=== PATIENT | male | born 1960 | race Caucasian/White ===

== ENCOUNTER 2018-10-20 06:51 | Observation (INO) ==
--- NOTE | 2018-10-20 07:33 | Emergency Department Note ---
ED Disposition Condition on Discharge: Serious - Critical Care Critical Care Time: No <Grover Hanley S - Last Filed: 10/20/18 07:48> Condition on Discharge: Good <AntonGrover - Last Filed: 10/27/18 01:55> Clinical Impression: Community acquired pneumonia Hypertensive cardiovascular disease Qualifiers: Heart failure presence: unspecified whether heart failure present Qualified Code(s): I11.9 - Hypertensive heart disease without heart failure Disposition: Admitted As Inpatient Attestation: On 10/20/18, the high probability of a clinically significant, sudden or life threatening deterioration of the following system(s) required my full and direct attention, intervention and personal management. The time I documented below is in addition to time spent performing reported procedures but includes the following listed in this critical care notation. Medical Decision Making - Medical Records Medical records reviewed: Yes: I reviewed the patient's medical records. - Joshua Inquiry Pt receiving controlled substance: No - Lab Data Lab results reviewed: Yes: I reviewed the patient's lab results. Result diagrams: 10/20/18 07:15 - Radiology Data #1 Image(s): Chest Image Reviewed: Yes I reviewed the patient's radiology image Preliminary Findings: Abnormal (cap) - ECG Data Tracing #1 Arrhythmias present: sinus tach Ischemic changes: ST elevation, non-specific ST-T wave changes ECG compared to prior tracings: there are no prior tracings available for comparison <Grover Hanley - Last Filed: 10/20/18 07:48> - Lab Data Result diagrams: 10/21/18 06:28 10/21/18 06:28 <AntonGrover - Last Filed: 10/27/18 01:55> Vital Signs: 10/20/18 07:05 10/20/18 07:40 10/20/18 07:55 Temperature 98 F Temperature Source Oral Pulse Rate Pulse Rate [Left Radial] 110 H 111 H Respiratory Rate 18 18 Blood Pressure Blood Pressure [Right Arm] 199/119 H 220/129 H 212/136 H Blood Pressure Mean [Right Arm] 145 159 161 Blood Pressure Source Blood Pressure Source [Right Arm] Automatic Cuff Automatic Cuff Automatic Cuff Blood Pressure Position Blood Pressure Position [Right Arm] Sitting Sitting Sitting 02 Sat by Pulse Oximetry 96 95 Oxygen Delivery Method Room Air Room Air 10/20/18 08:12 10/20/18 08:24 10/20/18 08:30 Temperature Temperature Source Pulse Rate Pulse Rate [Left Radial] 116 H 116 H Respiratory Rate Blood Pressure Blood Pressure [Right Arm] 192/124 H 197/112 H 201/103 H Blood Pressure Mean [Right Arm] 146 140 135 Blood Pressure Source Blood Pressure Source [Right Arm] Blood Pressure Position Blood Pressure Position [Right Arm] Sitting 02 Sat by Pulse Oximetry Oxygen Delivery Method 10/20/18 08:36 10/20/18 09:01 10/20/18 09:15 Temperature Temperature Source Pulse Rate Pulse Rate [Left Radial] 94 H 93 H Respiratory Rate Blood Pressure Blood Pressure [Right Arm] 186/108 H 174/102 H Blood Pressure Mean [Right Arm] 134 126 Blood Pressure Source Blood Pressure Source [Right Arm] Automatic Cuff Blood Pressure Position Blood Pressure Position [Right Arm] Sitting 02 Sat by Pulse Oximetry Oxygen Delivery Method Room Air 10/20/18 09:22 10/20/18 09:35 Temperature 98 F Temperature Source Oral Pulse Rate 80 Pulse Rate [Left Radial] 80 Respiratory Rate 18 Blood Pressure 140/80 Blood Pressure [Right Arm] 140/85 Blood Pressure Mean [Right Arm] 103 Blood Pressure Source Automatic Cuff Blood Pressure Source [Right Arm] Automatic Cuff Blood Pressure Position Sitting Blood Pressure Position [Right Arm] Sitting 02 Sat by Pulse Oximetry Oxygen Delivery Method Room Air - Lab Data Lab Results 10/20/18 07:15: WBC 12.7 H, RBC 4.51 L, Hgb 12.9 L, Hct 37.9 L, MCV 84.1, MCH 28.5, MCHC 33.9, RDW 14.3, Plt Count 322, MPV 7.8, Neut % (Auto) 84.7 H, Lymph % (Auto) 8.7 L, [place] % (Auto) 4.2, Eos % (Auto) 2.0, Baso % (Auto) 0.4, Neut # (Auto) 10.7 H, Lymph # (Auto) 1.1, [place] # (Auto) 0.5, Eos # (Auto) 0.3, Baso # (Auto) 0.1 10/20/18 07:15: B-Natriuretic Peptide 835 H 10/20/18 07:35: Lactate 0.8 10/20/18 08:26: Sodium 139, Potassium 2.8 L*, Chloride 101, Carbon Dioxide 25, Anion Gap 15.8 H, BUN 22 H, Creatinine 1.56 H, Estimated Creat Clear 51, Estimated GFR 46 L, Est GFR ( Amer) 56 L, Glucose 132 H, Calcium 8.9, Troponin I 0.10 H Orders (Tests/Meds): ED MEDICATIONS Discontinued Medications Generic Name Dose Route Start Last Admin Trade Name Rivka PRN Reason Stop Dose Admin Aspirin 324 mg 10/20/18 09:03 10/20/18 09:22 Aspirin 81mg Chewable Tablet PO 10/20/18 09:04 324 mg ONCE ONE Administration Bisoprolol Fumarate 10 mg 10/20/18 10:15 10/21/18 08:03 Zebeta 5mg Tablet PO 11/19/18 10:14 10 mg DAILY ARON Administration Furosemide 40 mg 10/20/18 17:06 10/20/18 18:09 Lasix 40mg Tablet PO 10/20/18 17:07 40 mg ONCE ONE Administration Hydralazine HCl 20 mg 10/20/18 07:51 10/20/18 08:00 Apresoline 20mg/Ml 1ml Vial IV 10/20/18 07:52 20 mg ONCE ONE Administration Hydrochlorothiazide 12.5 mg 10/20/18 09:00 10/20/18 08:09 Hctz 12.5mg Capsule PO 11/19/18 08:59 12.5 mg DAILY ARON Administration Hydrochlorothiazide 12.5 mg 10/20/18 09:00 10/21/18 07:59 Hctz 12.5mg Capsule PO 11/19/18 08:59 12.5 mg DAILY ARON Administration Levofloxacin/Dextrose 750 mg in 150 mls @ 100 mls/hr 10/20/18 08:15 10/20/18 08:23 Levofloxacin 750mg/150ml Premix IV 11/03/18 08:14 Not Given Q24H ARON Protocol Ceftriaxone Sodium 1 gm/ 50 mls @ 100 mls/hr 10/20/18 08:30 10/20/18 08:28 Sodium Chloride IV 11/03/18 08:29 100 mls/hr Q24H ARON Administration Protocol Azithromycin 500 mg/ Sodium 250 mls @ 250 mls/hr 10/20/18 08:30 10/20/18 09: 02 Chloride IV 11/03/18 08:29 250 mls/hr Q24H ARON Administration Protocol Azithromycin 500 mg/ Sodium 250 mls @ 250 mls/hr 10/21/18 09:00 10/21/18 08:56 Chloride IV 11/03/18 08:59 250 mls/hr Q24H ARON Administration Protocol Ceftriaxone Sodium 1 gm/ 50 mls @ 100 mls/hr 10/21/18 08:00 10/21/18 07:55 Sodium Chloride IV 11/03/18 07:59 100 mls/hr Q24H ARON Administration Protocol Irbesartan 150 mg 10/20/18 07:53 10/20/18 08:09 Avapro 150mg Tablet PO 10/20/18 07:54 150 mg ONCE ONE Administration Lorazepam 1 mg 10/20/18 08:15 10/20/18 08:22 Ativan 1mg Tablet PO 10/20/18 08:16 1 mg ONCE ONE Administration Metoprolol Tartrate 5 mg 10/20/18 08:30 10/20/18 08:30 Metoprolol Tartrate 5mg/5ml Vial IV 10/20/18 08:31 5 mg ONCE ONE Administration Ondansetron HCl 4 mg 10/20/18 08:55 Zofran 4mg/2ml Vial IV 11/19/18 08:54 Q8HP PRN Nausea Potassium Chloride 40 meq 10/20/18 09:01 10/20/18 09:22 Klor-Con 20meq Tablet PO 10/20/18 09:02 40 meq ONCE ONE Administration Potassium Chloride 20 meq 10/20/18 21:00 10/21/18 08:03 Klor-Con 20meq Tablet PO 11/19/18 20:59 20 meq QID ARON Administration Potassium Chloride 40 meq 10/21/18 08:21 10/21/18 08:56 Klor-Con 20meq Tablet PO 10/21/18 08:22 40 meq ONCE ONE Administration Sodium Chloride 10 ml 10/20/18 07:09 Saline Flush 10ml Syringe IV 11/19/18 07:08 NEEDED PRN Maintain IV Site Sodium Chloride 10 ml 10/20/18 08:55 Saline Flush 10ml Syringe IV 11/19/18 07:08 NEEDED PRN Maintain IV Site Sodium Chloride 3 ml 10/20/18 09:09 Sodium Chloride 3% 15ml Neb IH 11/19/18 09:08 ONCE PRN INDUCE SPUTUM COLLECTION ORDERS Category Date Time Status Consult to Cardiology [CONS] Routine Cons 10/20/18 08:55 Active Blood Culture Stat Micro 10/20/18 07:35 Ordered Resp/SOB HPI - General Mode of Arrival: Ambulatory Source of Information: Patient, Medical Record Limitations: No Limitations Description of Symptoms (Recalled from ER Triage Doc. by RN): to ed per pvt car with c/o cough, SOB, fatique, "coughing up blood" x 2 days. denies any fever, chills, chest pain, nausea or vomiting. cpta none - History of Present Illness MD Complaint: shortness of breath, cough Onset (ago): day(s) Severity: moderate Exacerbating factors: lying flat Associated symptoms: denies other symptoms Treatment prior to arrival: none - Related Data Home oxygen amount: none <Grover Hanley - Last Filed: 10/20/18 07:48> <Grover aWlton - Last Filed: 10/27/18 01:55> - General Chief Complaint: Shortness of Breath/Dyspnea Stated Complaint: fatiqued,spitting up blood,chest congested,soa Time Seen by Provider: 10/20/18 07:10 - History of Present Illness progressive sob over the last few days with no tob hx and no known card disease - worse with lying flat (Grover Hanley) - Related Data Home Medications Medication Instructions Recorded Confirmed No Known Home Medications 10/20/18 10/20/18 Previous Rx's Medication Instructions Recorded RX: Azithromycin [Z-Foster 250mg Tab] 250 mg PO UD DOSE PK #6 tab 10/21/18 RX: Bisoprolol Fumarate [Zebeta 10 mg PO DAILY #30 tab 10/21/18 5mg tablet] RX: Furosemide [Furosemide 40MG 40 mg PO DAILY #30 tab 10/21/18 tAB] RX: Losartan Potassium [Cozaar] 100 mg PO DAILY #30 tab 10/21/18 RX: Potassium Chloride [Klor-con 20 meq PO BID #60 tab 10/21/18 20 mEq tablet] Allergies Allergy/AdvReac Type Severity Reaction Status Date / Time No Known Allergies Allergy Verified 10/20/18 07:08 [facility] History - Hepatitis A Screen Drug use history?: No High risk sexual behaviors?: No History of sexually transmitted infection?: No Currently employed?: No Childcare worker?: No Do you have indoor plumbing?: Yes Do you have electricity?: Yes I have reviewed the patient's past medical history: Yes - Social History Alcohol Intake: never - Psychiatric History Expresses thoughts of harming self/others: None Suicide Plan Description: No Plan <DayanGrover - Last Filed: 10/20/18 07:48> - Hepatitis A Screen Attestation statement:: This patient has been screened for Hepatitis A risk factors. ROS Obtained: Yes All systems reviewed & no additional complaints - Constitutional Constitutional: Denies fever(s) - Eyes Eyes: Denies change in vision - ENT Ears, Nose, Mouth, and Throat: Denies sore throat - Cardiovascular Cardiovascular: Reports chest pain, Reports dyspnea - Respiratory Respiratory: Yes change in phlegm color, Yes cough, No wheezing - Gastrointestinal Gastrointestingal: Denies: abdominal pain - Genitourinary Male Genitourinary: Denies hematuria - Musculoskeletal Musculoskeletal: Denies joint pain, Denies joint swelling - Integumentary/Breasts Skin/Breast: Denies rash - Neurologic Neurologic: Denies seizure-like activity <Grover Hanley - Last Filed: 10/20/18 07:48> Physical Exam - General General appearance: alert, in no apparent distress - Head Head exam: atraumatic - Eye Eye exam: Present: PERRL, EOMI. Absent: scleral icterus - ENT ENT exam: Present: mucous membranes dry - Neck Neck exam: Present: trachea midline - Respiratory Respiratory exam: Absent: respiratory distress - Cardiovascular Cardiovascular exam: Present: regular rate, systolic murmur, +S4 - Abdominal Exam Abdominal exam: Present: soft - Extremities Exam Extremities exam: Absent: calf tenderness - Neurological Exam Neurological exam: Present: alert, oriented X3, CN II-XII intact - Psychiatric Psychiatric exam: Present: normal affect - Skin Skin exam: Absent: rash <Grover Hanley - Last Filed: 10/20/18 07:48>
[2018-10-20 07:39] LABS: Basophils # 0.1 K/mm3 (0-0.2); Basophils % 0.4 % (0.1-2.0); Eosinophils # 0.3 K/mm3 (0.0-0.4); Hematocrit 37.9 % (42.0-52.0); Hemoglobin 12.9 g/dL (14.1-18.0); Lymphocytes # 1.1 K/mm3 (0.7-4.5); Lymphocytes % 8.7 % (10-50); Mean Corpuscular HGB Conc 33.9 g/dL (31.8-35.4); Mean Corpuscular Hemoglobin 28.5 pg (27.0-31.2); Mean Corpuscular Volume 84.1 fl (80-94); Mean Platelet Volume 7.8 fl (7.4-10.4); Monocytes # 0.5 K/mm3 (0.1-1.0); Monocytes % 4.2 % (1.7-9.3); Neutrophils # 10.7 K/mm3 (1.8-7.8); Neutrophils % 84.7 % (37.0-80.0); Platelet Count 322 K/mm3 (142-424); Red Blood Count 4.51 M/mm3 (4.60-6.20); Red Cell Distribution Width 14.3 % (11.5-17.5); White Blood Count 12.7 K/mm3 (4.8-10.8)
[2018-10-20 08:59] LABS: Anion Gap 15.8 mEq/L (5-15); Calcium 8.9 mg/dL (8.5-10.1)
[2018-10-20 09:00] LABS: Potassium 2.8 mmoL/L (3.5-5.1)
--- NOTE | 2018-10-20 10:01 | Pharmacy Consult Notes ---
[facility] Pharmacy VTE Monitoring - Patient Demographics Admission date: 10/20/18 Report Date: 10/20/18 Time: 10:01 Allergies/Adverse Reactions: Patient Allergies No Known Allergies Allergy (Verified 10/20/18 07:08) Height: 1.7 m Weight: 68.039 kg Patient Problems: Current Active Problems Community acquired pneumonia (Acute) Hypertensive cardiovascular disease (Acute) - VTE Risk Labs: VTE Related Lab Results Hgb 12.9 g/dL (14.1-18.0) L 10/20/18 07:15 Hct 37.9 % (42.0-52.0) L 10/20/18 07:15 Plt Count 322 K/mm3 (142-424) 10/20/18 07:15 BUN 22 mg/dL (7-18) H 10/20/18 08:26 Creatinine 1.56 mg/dL (0.70-1.30) H 10/20/18 08:26 Estimated Creat Clear 51 mL/min (50-200) 10/20/18 08:26 - Prophylaxis VTE Prophylaxis Ordered?: Yes Types of VTE Prophylaxis: TEDS Knee High Location of Applied Device: Bilateral Lower Extremeties - VTE Diagnosis Confirmed Treatment or plan recommended: Continue Current Treatment
--- NOTE | 2018-10-20 10:13 | Consult Report ---
History of Present Illness Consult date: 10/20/18 Requesting physician: Cristopher Redmond Consult reason: chest pain Chief complaint: Chest pain, HTN Additional Medical History:: 1. Hard of hearing, uses hearing aids 2. Question level of comprehension. 3. Occasional alcohol use 4. Family history of coronary artery disease in his father in his late 50s History of present illness: 58-year-old white male with no significant medical history presented to the emergency department for evaluation of chest discomfort. Patient relates episodes of chest discomfort that are worse with activity recently along with episodes of shortness of breath that wake him from sleep. Patient denies any lower extremity edema but does admit to some dietary indiscretion with increased sodium intake around the holidays. Patient denies hypertension, hyperlipidemia, diabetes or tobacco use. 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 Patient is able to understand questions and respond appropriately. EKGs in the ER showed no evidence of hypertensive heart disease without acute ST segment elevation. Patient did have mildly elevated troponin initially in the ER when blood pressure was >200/100 mmHg. Blood pressure has responded well to antihypertensive therapy including beta-flako with near resolution of symptoms. Blood pressure currently 140s over 70s with heart rate in the 80s. Patient's [id number] does relate that the patient was coughing up some pinkish sputum recently. The patient does relate taking nonsteroidals recently. [facility] History - *Social History Alcohol Intake: never - Psychiatric History Expresses thoughts of harming self/others: None Suicide Plan Description: No Plan Meds Home Medications Medication Instructions Recorded Confirmed Type No Known Home Medications 10/20/18 10/20/18 History Allergies Allergy/AdvReac Type Severity Reaction Status Date / Time No Known Allergies Allergy Verified 10/20/18 07:08 Review of Systems - *Cardiovascular Reports chest pain, Reports shortness of breath, Reports shortness of breath with activity, Denies generalized swelling, Denies leg swelling - *Respiratory Reports cough, Reports shortness of breath - *Gastrointestinal Denies abdominal pain - *Genitourinary Denies blood in urine - *Musculoskeletal Reports joint pain - *Neurologic Denies seizure-like activity Exam Vital signs and Labs for Last 24 Hours: Temp Pulse Resp BP Pulse Ox 98 F 80 18 140/80 95 10/20/18 09:35 10/20/18 09:35 10/20/18 09:35 10/20/18 09:35 10/20/18 07:40 Laboratory Results - last 24 hr 10/20/18 07:15: WBC 12.7 H, RBC 4.51 L, Hgb 12.9 L, Hct 37.9 L, MCV 84.1, MCH 28.5, MCHC 33.9, RDW 14.3, Plt Count 322, MPV 7.8, Neut % (Auto) 84.7 H, Lymph % (Auto) 8.7 L, [place] % (Auto) 4.2, Eos % (Auto) 2.0, Baso % (Auto) 0.4, Neut # (Auto) 10.7 H, Lymph # (Auto) 1.1, [place] # (Auto) 0.5, Eos # (Auto) 0.3, Baso # (Auto) 0.1 10/20/18 07:15: B-Natriuretic Peptide 835 H 10/20/18 07:35: Lactate 0.8 10/20/18 08:26: Sodium 139, Potassium 2.8 L*, Chloride 101, Carbon Dioxide 25, Anion Gap 15.8 H, BUN 22 H, Creatinine 1.56 H, Estimated Creat Clear 51, Estimated GFR 46 L, Est GFR ( Amer) 56 L, Glucose 132 H, Calcium 8.9, Troponin I 0.10 H I & O for Last 24 hours: Intake & Output 10/17/18 10/18/18 10/19/18 10/20/18 11:59 11:59 11:59 11:59 Weight 150 lb - *Routine Neck Exam Present: supple. Absent: JVD, carotid bruit - *Routine Respiratory Exam Present: CTA bilaterally. Absent: accessory muscle use, rales, rhonchi, wheezes - *Routine Cardiovascular Exam Present: RRR. Absent: murmur, gallop, rubs - *Routine Abdominal Exam Present: soft. Absent: tenderness, distended, guarding - *Routine Extremities Exam Absent: edema, calf tenderness - *Routine Neurological Exam Present: alert, oriented X3, moving all extremities Assessment and Plan (1) (HFpEF) heart failure with preserved ejection fraction Current visit: Yes Status: Acute Category: Medical Code(s): I50.30 - Unspecified diastolic (congestive) heart failure (2) Hypertensive cardiovascular disease Current visit: Yes Status: Acute Qualifiers: Heart failure presence: unspecified whether heart failure present Qualified Code(s): I11.9 - Hypertensive heart disease without heart failure Category: Medical Code(s): I11.9 - Hypertensive heart disease without heart failure (3) CHF (congestive heart failure) Current visit: Yes Status: Acute Category: Medical Code(s): I50.9 - Heart failure, unspecified (4) Community acquired pneumonia Current visit: Yes Status: Acute Qualifiers: Laterality: right Lung location: lower lobe of lung Qualified Code(s): J18.1 - Lobar pneumonia, unspecified organism Category: Medical Code(s): J18.9 - Pneumonia, unspecified organism - Assessment and plan all Dx Assessment and Plan for all problems:: 1. Echocardiogram has been performed with official reading pending at this time but with preliminary showing preserved ejection fraction. 2. Mild congestive heart failure by chest x-ray with elevated BNP consistent with heart failure with preserved ejection fraction. Low-dose diuretic has been ordered. 3. Patient to be started on bisoprolol along with the Avapro that has already been started. He has had a nice response thus far to antihypertensives. 4. Abnormal EKG and elevated troponin felt secondary to hypertensive heart disease/response. Once blood pressure control has been sustained, will obtain a Lexiscan Myoview to assess for coronary artery disease. 5. Discussed with Dr. Javier.
--- NOTE | 2018-10-20 17:07 | History & Physical Report ---
*Admission Date: 10/20/18 *Chief complaint: Shortness of breath *History of present illness: 58-year-old white male with no significant medical history presented to the emergency department for evaluation of chest discomfort. Patient relates episodes of chest discomfort that are worse with activity recently along with episodes of shortness of breath that wake him from sleep. Patient denies any lower extremity edema but does admit to some dietary indiscretion with increased sodium intake around the holidays. Patient denies hypertension, hyperlipidemia, diabetes or tobacco use. Patient denies fevers, chills, other URI symptoms. 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 EKGs in the ER showed no evidence of hypertensive heart disease without acute ST segment elevation. Patient did have mildly elevated troponin initially in the ER when blood pressure was >200/100 mmHg. Blood pressure has responded well to antihypertensive therapy including beta-flako with near resolution of symptoms. Blood pressure currently 140s over 70s with heart rate in the 80s. Patient's [id number] does relate that the patient was coughing up some pinkish sputum recently. The patient does relate taking nonsteroidals recently. [facility] History I have reviewed the patient's past medical history: Yes Medical History: Reports:: Hypertension Denies:: Cancer, Diabetes Mellitus Type 1, Diabetes Mellitus Type 2, Internal Pacemaker, MRSA Other Medical History: Reports: Sinus Problems Other Surgeries: No: Pacemaker Amputation: No - *Social History Educational Level: Completed College Smoking Status: Never smoker Smoking End Date: 1982 Alcohol Intake: never Alcohol Intake Frequency:: 0-2 drinks per day Occupational Status: disabled Housing: house Household Members: none - Psychiatric History Expresses thoughts of harming self/others: None Suicide Plan Description: No Plan Review of Systems - Review of Systems Review of systems:: pertinent systems reviewed and negative unless documented below - Constitutional Reports fatigue, Denies body ache(s), Denies chills - ENT Reports abnormal hearing - *Cardiovascular Reports chest pain, Reports shortness of breath - *Respiratory Reports change in phlegm color, Reports shortness of breath, Reports shortness of breath with activity - *Gastrointestinal Denies abdominal pain, Denies bloating - *Neurologic Denies seizure-like activity Meds Home Medications Medication Instructions Recorded Confirmed Type No Known Home Medications 10/20/18 10/20/18 History Allergies Allergy/AdvReac Type Severity Reaction Status Date / Time No Known Allergies Allergy Verified 10/20/18 07:08 Exam Vital signs and Labs for Last 24 Hours: Temp Pulse Resp BP Pulse Ox 98.0 F 78 18 138/78 96 10/20/18 16:00 10/20/18 16:00 10/20/18 16:00 10/20/18 16:00 10/20/18 16:00 Laboratory Results - last 24 hr 10/20/18 07:15: WBC 12.7 H, RBC 4.51 L, Hgb 12.9 L, Hct 37.9 L, MCV 84.1, MCH 28.5, MCHC 33.9, RDW 14.3, Plt Count 322, MPV 7.8, Neut % (Auto) 84.7 H, Lymph % (Auto) 8.7 L, [place] % (Auto) 4.2, Eos % (Auto) 2.0, Baso % (Auto) 0.4, Neut # (Auto) 10.7 H, Lymph # (Auto) 1.1, [place] # (Auto) 0.5, Eos # (Auto) 0.3, Baso # (Auto) 0.1 10/20/18 07:15: B-Natriuretic Peptide 835 H 10/20/18 07:35: Lactate 0.8 10/20/18 08:26: Sodium 139, Potassium 2.8 L*, Chloride 101, Carbon Dioxide 25, Anion Gap 15.8 H, BUN 22 H, Creatinine 1.56 H, Estimated Creat Clear 51, Estimated GFR 46 L, Est GFR ( Amer) 56 L, Glucose 132 H, Calcium 8.9, Troponin I 0.10 H 10/20/18 12:00: Troponin I 0.08 H 10/20/18 14:58: Troponin I 0.07 H I & O for Last 24 hours: Intake & Output 10/18/18 10/19/18 10/20/18 10/21/18 11:59 11:59 11:59 11:59 Intake Total 360 / 360 Balance 360 / 360 Weight 156 lb 1.996 oz - Constitutional no acute distress - *Routine HEENT Exam Head: Present: normocephalic Eye: Present: PERRL ENT: Present: mucous membranes moist - *Routine Neck Exam Absent: JVD, carotid bruit - *Routine Respiratory Exam Present: crackles (Right base greater than left base) - *Routine Cardiovascular Exam Present: RRR, Normal S1, Normal S2 - *Routine Abdominal Exam Present: soft, normoactive bowel sounds - *Routine Extremities Exam Absent: cyanosis, clubbing, edema H&P: Result - Impressions Preliminary echocardiogram report showed preserved ejection fraction Assessment and Plan (1) (HFpEF) heart failure with preserved ejection fraction Current visit: Yes Status: Acute Category: Medical Code(s): I50.30 - Unspecified diastolic (congestive) heart failure (2) Hypertensive cardiovascular disease Current visit: Yes Status: Acute Qualifiers: Heart failure presence: unspecified whether heart failure present Qualified Code(s): I11.9 - Hypertensive heart disease without heart failure Category: Medical Code(s): I11.9 - Hypertensive heart disease without heart failure (3) CHF (congestive heart failure) Current visit: Yes Status: Acute Qualifiers: Heart failure chronicity: acute Category: Medical Code(s): I50.9 - Heart failure, unspecified (4) Community acquired pneumonia Current visit: Yes Status: Suspected Qualifiers: Laterality: right Lung location: lower lobe of lung Qualified Code(s): J18.1 - Lobar pneumonia, unspecified organism Category: Medical Code(s): J18.9 - Pneumonia, unspecified organism (5) Hypokalemia Current visit: Yes Status: Acute Category: Medical Code(s): E87.6 - Hypokalemia - Assessment and plan all Dx Assessment and Plan for all problems:: Patient's blood pressure has responded nicely to initiation of bisoprolol, irbesartan, and a dose of hydrochlorothiazide as well as hydralazine in the emergency department. Continue to monitor overnight. While patient's chest x- ray was interpreted as pneumonia and he lacks infectious symptoms and I suspect the changes on his chest x-ray may be due to his heart failure. Repeat labs in a.m. Patient will need his potassium replaced as well. I am going to give him a dose of oral Lasix this evening.
--- NOTE | 2018-10-21 06:47 | Progress Note ---
Internal Medicine - PN: Subj *Date: 10/21/18 *Time: 06:45 Interval history: Patient has no complaints this morning. He slept well. He states he still notes a little bit of abnormal sensation when taking a deep breath. While he was given additional Lasix yesterday evening and he did urinate more he does not really feel like it had any significant impact on his dyspnea Exam Vital signs and Labs for Last 24 Hours: Temp Pulse Resp BP Pulse Ox 98.1 F 83 15 144/83 H 95 10/21/18 04:00 10/21/18 04:00 10/21/18 04:00 10/21/18 04:00 10/21/18 04:00 Laboratory Results - last 24 hr 10/20/18 07:15: WBC 12.7 H, RBC 4.51 L, Hgb 12.9 L, Hct 37.9 L, MCV 84.1, MCH 28.5, MCHC 33.9, RDW 14.3, Plt Count 322, MPV 7.8, Neut % (Auto) 84.7 H, Lymph % (Auto) 8.7 L, [place] % (Auto) 4.2, Eos % (Auto) 2.0, Baso % (Auto) 0.4, Neut # (Auto) 10.7 H, Lymph # (Auto) 1.1, [place] # (Auto) 0.5, Eos # (Auto) 0.3, Baso # (Auto) 0.1 10/20/18 07:15: B-Natriuretic Peptide 835 H 10/20/18 07:35: Lactate 0.8 10/20/18 08:26: Sodium 139, Potassium 2.8 L*, Chloride 101, Carbon Dioxide 25, Anion Gap 15.8 H, BUN 22 H, Creatinine 1.56 H, Estimated Creat Clear 51, Estimated GFR 46 L, Est GFR ( Amer) 56 L, Glucose 132 H, Calcium 8.9, Troponin I 0.10 H 10/20/18 12:00: Troponin I 0.08 H 10/20/18 14:58: Troponin I 0.07 H I & O for Last 24 hours: Intake & Output 10/18/18 10/19/18 10/20/18 10/21/18 11:59 11:59 11:59 11:59 Intake Total 720 / 720 Balance 720 / 720 Weight 156 lb 1.996 oz 154 lb 5.212 oz Narrative: Patient is awake and alert and in no distress. Heart has a regular rate and rhythm. Lungs have bibasilar rales that persist Assessment and Plan (1) (HFpEF) heart failure with preserved ejection fraction Current visit: Yes Status: Acute Category: Medical Code(s): I50.30 - Unspe cified diastolic (congestive) heart failure (2) Hypertensive cardiovascular disease Current visit: Yes Status: Acute Qualifiers: Heart failure presence: unspecified whether heart failure present Qualified Code(s): I11.9 - Hypertensive heart disease without heart failure Category: Medical Code(s): I11.9 - Hypertensive heart disease without heart failure (3) CHF (congestive heart failure) Current visit: Yes Status: Acute Qualifiers: Heart failure chronicity: acute Category: Medical Code(s): I50.9 - Heart failure, unspecified (4) Community acquired pneumonia Current visit: Yes Status: Suspected Qualifiers: Laterality: right Lung location: lower lobe of lung Qualified Code(s): J18.1 - Lobar pneumonia, unspecified organism Category: Medical Code(s): J18.9 - Pneumonia, unspecified organism (5) Hypokalemia Current visit: Yes Status: Acute Category: Medical Code(s): E87.6 - Hypokalemia - Assessment and plan all Dx Assessment and Plan for all problems:: 1. Await cardiology recommendations this morning 2. Continue antibiotics. From a pneumonia standpoint patient can be easily transition to oral antibiotics 3. Continue antihypertensives. Anticipate discharge later today or tomorrow
--- NOTE | 2018-10-21 06:52 | Discharge Summary ---
General - General Admission date:: 10/20/18 HPI HPI: 58-year-old white male with no significant medical history presented to the emergency department for evaluation of chest discomfort. Patient relates episodes of chest discomfort that are worse with activity recently along with episodes of shortness of breath that wake him from sleep. Patient denies any lower extremity edema but does admit to some dietary indiscretion with increased sodium intake around the holidays. Patient denies hypertension, hyperlipidemia, diabetes or tobacco use. Patient denies fevers, chills, other URI symptoms. 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 EKGs in the ER showed no evidence of hypertensive heart disease without acute ST segment elevation. Patient did have mildly elevated troponin initially in the ER when blood pressure was >200/100 mmHg. Blood pressure has responded well to antihypertensive therapy including beta-flako with near resolution of symptoms. Blood pressure currently 140s over 70s with heart rate in the 80s. Patient's [id number] does relate that the patient was coughing up some pinkish sputum recently. The patient does relate taking nonsteroidals recently. Hospital Course Hospital Course: Patient was admitted and blood pressure came down nicely after being administered antihypertensives. Echocardiogram was performed and showed a preserved ejection fraction. Patient did diurese with use of diuretic. Chest x-ray was interpreted as also having bilateral infiltrates. Initially I believe these were due to the congestive heart failure but after diuresis his lung exam remained abnormal with bibasilar rales. Patient had received Rocephin and azithromycin while hospitalized and will continue a course of azithromycin at discharge. On the morning of the patient was not requiring supplemental oxygen and his blood pressures were acceptable. Patient was discharged home. Patient will follow-up with me in 1 week for repeat of his blood pressure and repeat lung exam and follow-up of pneumonia. Stress test will be arranged at that time. Objective Vital signs: Temp Pulse Resp BP Pulse Ox 98.1 F 83 15 144/83 H 95 10/21/18 04:00 10/21/18 04:00 10/21/18 04:00 10/21/18 04:00 10/21/18 04:00 Results Labs on day of discharge: Labs from last 24 hours 10/20/18 10/20/18 10/20/18 14:58 12:00 08:26 WBC RBC Hgb Hct MCV MCH MCHC RDW Plt Count MPV Neut % (Auto) Lymph % (Auto) [place] % (Auto) Eos % (Auto) Baso % (Auto) Neut # (Auto) Lymph # (Auto) [place] # (Auto) Eos # (Auto) Baso # (Auto) Sodium 139 Potassium 2.8 L* Chloride 101 Carbon Dioxide 25 Anion Gap 15.8 H BUN 22 H Creatinine 1.56 H Estimated Creat Clear 51 Estimated GFR 46 L Est GFR ( Amer) 56 L Glucose 132 H Lactate Calcium 8.9 Troponin I 0.07 H 0.08 H 0.10 H B-Natriuretic Peptide 10/20/18 10/20/18 10/20/18 07:35 07:15 07:15 WBC 12.7 H RBC 4.51 L Hgb 12.9 L Hct 37.9 L MCV 84.1 MCH 28.5 MCHC 33.9 RDW 14.3 Plt Count 322 MPV 7.8 Neut % (Auto) 84.7 H Lymph % (Auto) 8.7 L [place] % (Auto) 4.2 Eos % (Auto) 2.0 Baso % (Auto) 0.4 Neut # (Auto) 10.7 H Lymph # (Auto) 1.1 [place] # (Auto) 0.5 Eos # (Auto) 0.3 Baso # (Auto) 0.1 Sodium Potassium Chloride Carbon Dioxide Anion Gap BUN Creatinine Estimated Creat Clear Estimated GFR Est GFR ( Amer) Glucose Lactate 0.8 Calcium Troponin I B-Natriuretic Peptide 835 H DS: Diagnosis - Discharge Diagnosis (1) (HFpEF) heart failure with preserved ejection fraction Status: Acute (2) Hypertensive cardiovascular disease Status: Acute (3) CHF (congestive heart failure) Status: Acute (4) Community acquired pneumonia Status: Suspected (5) Hypokalemia Status: Acute Discharge Plan - Patient Discharge Instructions ACTIVITY: Limited activity DIET: continue same diet - Follow up Plan Follow up with: Deshawn Javier MD [Staff Physician] - Cristopher Redmond MD [Staff Physician] - 10/28/18 2:00 pm Disposition: Home, Self-Alf Medications: Home Medications Medication Instructions Recorded Confirmed Type No Known Home Medications 10/20/18 10/20/18 History Azithromycin [Z-Foster 250mg Tab] 250 mg PO UD DOSE PK #6 tab 10/21/18 Rx Bisoprolol Fumarate [Zebeta 5mg 10 mg PO DAILY #30 tab 10/21/18 Rx tablet] Furosemide [Furosemide 40MG tAB] 40 mg PO DAILY #30 tab 10/21/18 Rx Losartan Potassium [Cozaar] 100 mg PO DAILY #30 tab 10/21/18 Rx Potassium Chloride [Klor-con 20 20 meq PO BID #60 tab 10/21/18 Rx mEq tablet] Prescriptions/Medication Reconciliation: New Bisoprolol Fumarate [Zebeta 5mg tablet] 10 mg PO DAILY #30 tab Furosemide [Furosemide 40MG tAB] 40 mg PO DAILY #30 tab Losartan Potassium [Cozaar] 100 mg PO DAILY #30 tab Potassium Chloride [Klor-con 20 mEq tablet] 20 meq PO BID #60 tab Azithromycin [Z-Foster 250mg Tab] 250 mg PO UD DOSE PK #6 tab No Action No Known Home Medications
[2018-10-21 07:00] LABS: Anion Gap 10.2 mEq/L (5-15); Calcium 8.2 mg/dL (8.5-10.1); Potassium 3.2 mmoL/L (3.5-5.1)
[2018-10-21 07:19] LABS: Basophils % 0.4 % (0.1-2.0); Eosinophils # 0.4 K/mm3 (0.0-0.4); Eosinophils % 3.6 % (0.1-12.0); Hematocrit 36.3 % (42.0-52.0); Hemoglobin 11.9 g/dL (14.1-18.0); Lymphocytes # 1.8 K/mm3 (0.7-4.5); Lymphocytes % 18.9 % (10-50); Mean Corpuscular HGB Conc 32.8 g/dL (31.8-35.4); Mean Corpuscular Hemoglobin 27.8 pg (27.0-31.2); Mean Corpuscular Volume 84.8 fl (80-94); Mean Platelet Volume 7.8 fl (7.4-10.4); Monocytes # 0.5 K/mm3 (0.1-1.0); Monocytes % 5.3 % (1.7-9.3); Neutrophils # 6.9 K/mm3 (1.8-7.8); Neutrophils % 71.7 % (37.0-80.0); Platelet Count 315 K/mm3 (142-424); Red Blood Count 4.28 M/mm3 (4.60-6.20); Red Cell Distribution Width 14.5 % (11.5-17.5); White Blood Count 9.6 K/mm3 (4.8-10.8)
--- NOTE | 2018-10-21 08:24 | Progress Note ---
Subjective Date: 10/21/18 Time: 08:21 Principal diagnosis: SOA Interval history: 58-year-old white male in bed in no acute distress. Shortness of breath has improved. Telemetry shows no arrhythmias. Troponin is trending down. Mild bump in creatinine and BUN with additional Lasix and institution of KENNETH inhibitor yesterday with hydrochlorothiazide. Potassium improved at 3.2. Exam Vital signs and Labs for Last 24 Hours: Temp Pulse Resp BP Pulse Ox 98.1 F 83 15 144/83 H 95 10/21/18 04:00 10/21/18 04:00 10/21/18 04:00 10/21/18 04:00 10/21/18 04:00 Laboratory Results - last 24 hr 10/20/18 07:15: B-Natriuretic Peptide 835 H 10/20/18 08:26: Sodium 139, Potassium 2.8 L*, Chloride 101, Carbon Dioxide 25, Anion Gap 15.8 H, BUN 22 H, Creatinine 1.56 H, Estimated Creat Clear 51, Estimated GFR 46 L, Est GFR ( Amer) 56 L, Glucose 132 H, Calcium 8.9, Troponin I 0.10 H 10/20/18 12:00: Troponin I 0.08 H 10/20/18 14:58: Troponin I 0.07 H 10/21/18 06:28: WBC 9.6, RBC 4.28 L, Hgb 11.9 L, Hct 36.3 L, MCV 84.8, MCH 27.8, MCHC 32.8, RDW 14.5, Plt Count 315, MPV 7.8, Neut % (Auto) 71.7, Lymph % (Auto) 18.9, [place] % (Auto) 5.3, Eos % (Auto) 3.6, Baso % (Auto) 0.4, Neut # (Auto) 6.9, Lymph # (Auto) 1.8, [place] # (Auto) 0.5, Eos # (Auto) 0.4, Baso # (Auto) 0.0 10/21/18 06:28: Sodium 142, Potassium 3.2 L, Chloride 104, Carbon Dioxide 31 D, Anion Gap 10.2, BUN 30 H D, Creatinine 1.99 H D, Estimated Creat Clear 41, Estimated GFR 35 L, Est GFR ( Amer) 42 L D, Glucose 149 H, Calcium 8.2 L I & O for Last 24 hours: Intake & Output 10/18/18 10/19/18 10/20/18 10/21/18 11:59 11:59 11:59 11:59 Intake Total 720 / 720 Balance 720 / 720 Weight 156 lb 1.996 oz 154 lb 5.212 oz - *Routine Respiratory Exam Present: CTA bilaterally. Absent: accessory muscle use, rales, rhonchi, wheezes - *Routine Cardiovascular Exam Present: RRR. Absent: murmur, gallop, rubs Progress Note: A&P (1) (HFpEF) heart failure with preserved ejection fraction Status: Acute Current Visit: Yes (2) Hypertensive cardiovascular disease Status: Acute Current Visit: Yes (3) CHF (congestive heart failure) Status: Acute Current Visit: Yes (4) Community acquired pneumonia Status: Suspected Current Visit: Yes (5) Hypokalemia Status: Acute Current Visit: Yes Assessment and Plan for All Diagnoses:: 1. We will give additional 40 mEq of potassium today. 2. Patient may be discharged home on current medications with follow-up in 2-3 weeks. Patient is to see Dr. Redmond next week who will order exercise Myoview (this could be changed to Lexiscan Myoview if patient unable to walk long enough to achieve target heart rate).
== END 2018-10-21 10:50 | disposition home or self-care (01) ==
LOC: 2ND 06:51 → ER 06:51 → 2ND 09:36
PROVIDERS: ADMIT Family Medicine; ATTEND Family Medicine
CPT/HCPCS: 36415; 71020; 71046; 80048; 83605; 83880; 84484; 85025; 87040; 87077; 87186; 93005; 93306; 96365; 96375; 99285; G0378; J0456

== ENCOUNTER → 2018-11-07 06:18 | Outpatient (CLI) | payer MEDICAID, SELFPAY ==
--- NOTE | 2018-11-07 06:47 | NM_ITS ---
History and Indications: Hypertension, hyperlipidemia, family history, shortness of breath Procedure: Patient exercised on Home protocol 10 minutes and 8 seconds, resting heart rate was 62 bpm resting blood pressure 150/99, with exercise maximum heart rate achieved was 1 58 bpm which is greater than 85% of the maximum predicted heart rate and a blood pressure was 178/100. Test was started due to shortness of breath patient complained chest pain. Patient has good exercise capacity achieved 12.8mets of workload on treadmill, the blood pressure response to exercise was adequate. Electrocardiogram: Resting echocardiogram showed sinus rhythm left ventricular hypertrophy , with exercise there is a millimeters ST segment depression noted from the baseline EKG. The EKG portion of the exercise Myoview is positive for ischemia. Cardiac stress and resting SPECT images: Cardiac stress and resting SPECT images were obtained using technetium 99 Myoview 31.2 mCi stress and 10.1 mCi at rest. Gated SPECT further analysis of segmental wall motion and calculation of the ejection fraction also done. Cardiac stress and resting SPECT images show uniform myocardial activity without segmental perfusion abnormality, computer derived ejection fraction is 46% with no regional wall motion abnormality, right ventricle is normal size and contractility. Conclusion: 1. The EKG portion of the exercise Myoview is positive for ischemia, patient has good exercise capacity achieved 12.8mets of workload on treadmill, the blood pressure response to exercise was adequate, there was no exercise-induced chest discomfort. Test was stopped due to shortness of breath. 2. No scintigraphic evidence of reversible ischemia seen at this level of exercise, computer derived ejection fraction 46% with no regional wall motion abnormality. Right ventricle is normal size and contractility.
--- NOTE | 2018-11-07 06:48 | HMH.ITSHM ---
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 []BISOPROLOL FUROSEMIDE KLOR-CON LOSARTAN
== END ==
PROVIDERS: PCP Family Medicine; Visit Provider Family Medicine
DX: I11.0 Hypertensive heart disease with heart failure (principal); I50.21 Acute systolic (congestive) heart failure; I20.8 Other forms of angina pectoris; R74.8 Abnormal levels of other serum enzymes
CPT/HCPCS: 78452; 93017; A9502

== ENCOUNTER → 2018-11-15 08:08 | Outpatient (CLI) | payer MEDICAID, SELFPAY ==
--- NOTE | 2018-11-15 08:10 | AS_ITS ---
Renal Arterial Duplex Indications: 405.91 Unspecified renovascular hypertension. IMPRESSIONS Normal bilateral renal artery evaluation. Complete renal arterial duplex. Duplex scan and Doppler flow study including spectral analysis, color and veloz scale imaging. Height: Height: 170.2cm. Height: 67in. Weight: Weight: 71.7kg. Weight: 157.7lb. Body mass index: BMI: 24.7kg/m^2. Body surface area: BSA: 1.85m^2. Location: Vascular laboratory. Patient status: Outpatient. Tables: Arterial flow: + +--------+--------+ Location V sys V ed + +--------+--------+ Right renal - proximal 130cm/s 32.6cm/s + +--------+--------+ Right renal - mid 127cm/s 27.8cm/s + +--------+--------+ Right renal - distal 65cm/s 20.5cm/s + +--------+--------+ Left renal - proximal 99.2cm/s 19cm/s + +--------+--------+ Left renal - mid 75.9cm/s 15.3cm/s + +--------+--------+ Left renal - distal 46.2cm/s 10.9cm/s + +--------+--------+ Right renal-origin 128cm/s 21cm/s + +--------+--------+ Left renal-origin 101cm/s 21.2cm/s + +--------+--------+ Renal anatomy: + +------+------+ Left Right + +------+------+ Long axis 10.8cm 10.6cm + +------+------+ Short axis 7.4cm 7.1cm + +------+------+ Cortical thickness 1.6cm 1cm + +------+------+ Velocity ratios: + +-----+ V sys + +-----+ Right renal/aortic 0.94 + +-----+ Left renal/aortic 0.72 + +-----+ (Report amended ) Electronically signed by: Flynn Richard [id number]
== END ==
PROVIDERS: PCP Family Medicine; Visit Provider Internal Medicine
DX: I11.9 Hypertensive heart disease without heart failure (principal); I51.7 Cardiomegaly; I51.9 Heart disease, unspecified; J18.1 Lobar pneumonia, unspecified organism; N52.9 Male erectile dysfunction, unspecified; R06.02 Shortness of breath
CPT/HCPCS: 93976

== ENCOUNTER → 2018-11-28 09:32 | Outpatient (CLI) | payer MEDICAID, SELFPAY ==
[2018-11-28 11:45] LABS: Anion Gap 15.8 mEq/L (5-15); Blood Urea Nitrogen 37 mg/dL (7-18); Calcium 9.2 mg/dL (8.5-10.1); Carbon Dioxide 26 mmol/L (21.0-32.0); Chloride 104 mmol/L (98-107); Chol/HDL Ratio 4.1 (1-3.5); Cholesterol 156 mg/dL (140-200); Creatinine,Serum 1.61 mg/dL (0.70-1.30); Estimated Glomerular Filt Rate 45 ml/min (>60); GFR (African American) 54 ML/MIN (>60); Glucose 110 mg/dL (74-106); HDL Cholesterol 38 mg/dL (27-67); LDL Cholesterol 102 mg/dL (0-130); Potassium 4.8 mmoL/L (3.5-5.1); Sodium 141 mmol/L (136-145); Triglycerides 79 mg/dL (30-200); VLDL Cholesterol 16 mg/dL (0-40)
== END ==
PROVIDERS: Visit Provider Family Medicine
DX: I11.0 Hypertensive heart disease with heart failure (principal)
CPT/HCPCS: 36415; 80048; 80061

== ENCOUNTER → 2019-12-22 16:33 | Outpatient (CLI) | payer OTHER, SELFPAY ==
--- NOTE | 2019-12-22 | XR_ITS ---
PROCEDURE: XR CHEST 2V CLINICAL HISTORY: COUGH; FEVER AND CHILLS COMPARISON: CXR2V XR chest 2V from 10/20/2018 XR CHEST 2V from 12/09/2019 FINDINGS: The cardiomediastinal silhouette and pulmonary vascularity are within normal limits. The lungs are clear without infiltrates, suspicious nodules, or pleural effusions. No acute bony abnormalities. IMPRESSION: No acute findings. Dictated by: Flynn Richard MD 12/22/2019 16:57 Electronically signed by Flynn Richard MD in [place] 12/22/2019 16:57
== END ==
PROVIDERS: PCP Family Medicine; Visit Provider Family Medicine
DX: R50.9 Fever, unspecified (principal); R05 Cough
CPT/HCPCS: 71046

== ENCOUNTER → 2020-03-20 07:44 | Outpatient (CLI) | payer OTHER, SELFPAY ==
--- NOTE | 2020-03-20 07:46 | CA_ITS ---
APPROVED REPORT EXAM: Comprehensive 2D, Doppler, and color-flow Echocardiogram [employer] Supervisor: Zaida Martinez RDCS Ht: 5 ft 7 in Wt: 155lbs BSA: 1.81 BP: 120/62 mmHg Indications: SOA AI HTN HLP STOUT 2D Dimensions LVOT 1.58 cm (M/F) 1.5-2.5 M-Mode Dimensions RVDd 1.11 cm (0.9-2.6) LVDd 5.72 cm (3.5-5.7) LVDs 3.32 cm (3.5-5.7) IVSd 0.65 cm (0.6-1.1) PWd 0.72 cm (0.6-1.1) EF (Teich) 72.20% FS 42.00% EDV (Teich) 161.30 mL ESV (Teich) 44.80 mL LV Diastology E/A Ratio 0.76 Aortic Valve LVOT Max 114.00 (70-110 cm/s) LVOT VTI 20.75 cm Mitral Valve MV A Velocity 69.00 (40-130 cm/s) Left Ventricle Left atrium is mildly enlarged, left ventricle is normal size, mild concentric left ventricular hypertrophy, visually estimated ejection fraction 55% with no regional wall motion abnormality. Grade 1 diastolic dysfunction seen without tissue Doppler evidence of raise left atrial pressure. Right Ventricle Right atrium and right ventricular normal size and contractility. Aortic Valve Aortic valve is minimally thickened and fibrosed, there is no aortic stenosis, there is mild aortic insufficiency. Mitral Valve Mitral valve is grossly normal, there is mild mitral regurgitation. Tricuspid Valve Tricuspid valve is grossly normal, there is mild tricuspid regurgitation. Tricuspid regurgitation jet velocity is inadequate for calculation of the right ventricular systolic pressure. Pulmonic Valve Pulmonic valve is poorly visualized. Great Vessels Aortic root is normal size. Pericardium No significant pericardial effusion noted. Conclusion 1. The left atrium, normal left ventricular size, mild concentric left ventricular hypertrophy, visually estimated ejection fraction 55% with no regional wall motion abnormality, grade 1 diastolic dysfunction seen without tissue Doppler evidence of raise left atrial pressure. 2. Mild aortic, mild mitral and tricuspid regurgitation. 3. No significant pericardial effusion noted. Electronically signed by : Mikie Hernandez, 03/21/2020 11:13:44
== END ==
PROVIDERS: PCP Family Medicine; Visit Provider Nurse Practitioner Family
DX: R06.00 Dyspnea, unspecified (principal); I10 Essential (primary) hypertension; I50.9 Heart failure, unspecified; N52.9 Male erectile dysfunction, unspecified
CPT/HCPCS: 93306

== ENCOUNTER 2020-03-31 10:09 | Emergency (ER) | payer OTHER, SELFPAY ==
--- NOTE | 2020-03-31 10:13 | HMH.EDGENADL ---
ED Disposition Clinical Impression: Liver mass, Pleuritic pain Anemia Qualifiers: Anemia type: unspecified type Qualified Code(s): D64.9 - Anemia, unspecified Disposition: Home, Self-Care Condition on Discharge: Good Instructions: DI for Acute Pain -- Adult, DI for Anemia of Chronic Disease Additional Instructions: You have a large liver mass that needs further evaluation outpatient. Make sure that you follow-up with your primary care doctor within the next 2 to 3 days for further evaluation. Prescriptions: Hydrocodone/Acetaminophen [[place] 5-325 Tablet] 1 each PO Q4-6H PRN #9 tab PRN Reason: pain Prescription Printed Referrals: Cristopher Redmond MD [Primary Care Provider] - 3 days - Critical Care Critical Care Time: No Attestation: On , the high probability of a clinically significant, sudden or life threatening deterioration of the following system(s) required my full and direct attention, intervention and personal management. The time I documented below is in addition to time spent performing reported procedures but includes the following listed in this critical care notation. Medical Decision Making - Medical Records Medical records reviewed: Yes: I reviewed the patient's medical records. - Joshua Inquiry Pt receiving controlled substance: Yes Joshua was queried for this patient: No Risks and benefits of using a controlled substance: were discussed with pt by me Vital Signs: 03/31/20 10:17 03/31/20 11:07 03/31/20 11:56 Temperature 98 F Temperature Source Oral Pulse Rate [Left Radial] 89 89 72 Respiratory Rate 20 Blood Pressure [Right Arm] 130/68 117/69 125/63 Blood Pressure Mean [Right Arm] 88 85 83 Blood Pressure Source [Right Arm] Automatic Cuff Blood Pressure Position [Right Arm] Sitting Sitting Sitting 02 Sat by Pulse Oximetry 98 99 Oxygen Delivery Method Room Air Room Air - Lab Data Lab Results 03/31/20 10:25: WBC 15.6 H, RBC 3.68 L, Hgb 7.5 L*, Hct 25.3 L, MCV 68.7 L, MCH 20.4 L, MCHC 29.7 L, RDW 16.1, Plt Count 893 H, MPV 6.7 L, Neut % (Auto) 80.4 H, Lymph % (Auto) 13.9, [place] % (Auto) 5.1, Eos % (Auto) 0.4, Baso % (Auto) 0.1, Neut # (Auto) 12.5 H, Lymph # (Auto) 2.2, [place] # (Auto) 0.8, Eos # (Auto) 0.1, Baso # (Auto) 0.0, Total Counted 100, Neutrophils % (Manual) 82 H, Lymphocytes % (Manual) 15, Monocytes % (Manual) 2, Metamyelocytes % 1.0, Platelet Estimate Marked increase, RBC Morphology Not Reportable, Hypochromasia 3+, Poikilocytosis 2+, Anisocytosis 2+, Microcytosis 2+ 03/31/20 10:25: D-Dimer 2980 H* 03/31/20 10:25: Sodium 129 L, Potassium 5.2 H, Chloride 93 L, Carbon Dioxide 25, Anion Gap 16.2 H, BUN 25 H, Creatinine 1.50 H, Estimated Creat Clear 52, Estimated GFR 48 L, Est GFR ( Amer) 58 L, Glucose 139 H, Calcium 9.5 Result diagrams: 03/31/20 10:25 03/31/20 10:25 Orders (Tests/Meds): ED MEDICATIONS Discontinued Medications Generic Name Dose Route Start Last Admin Trade Name Freq PRN Reason Stop Dose Admin Sodium Chloride 1,000 mls @ 999 mls/hr 03/31/20 11:15 03/31/20 11:15 Sod Chlor 0.9% 1000ml Bag IV 03/31/20 12:15 999 mls/hr .Q1H1M ARON Administration Ioversol 70 ml 03/31/20 11:54 03/31/20 11:55 Rad-Optiray 350 100ml Vial IV 03/31/20 11:55 70 ml ONCE ONE Administration Protocol Sodium Chloride 50 ml 03/31/20 11:54 03/31/20 11:55 Rad-Ns 50ml Vial IV 03/31/20 11:55 50 ml ONCE ONE Administration Sodium Chloride 10 ml 03/31/20 11:54 03/31/20 11:55 Rad-Saline Flush 10ml Syringe IV 03/31/20 11:55 10 ml ONCE ONE Administration ORDERS Category Date Time Status CTA Chest [CT angio chest] Stat Cat Scan 03/31/20 11:06 Taken - CT Data CT Scan: Chest Time Received: 12:[address] Reviewed: Yes: I have reviewed the patient's CT results Findings Narrative: No acute pulmonary findings including no pneumonia, pneumothorax or pulmonary embolus. He has a large liver mass that will need to be further wor
[2020-03-31 10:17] VITALS: BP 130/68; PULSE 89; RESP 20; TEMP 36.6; O2SAT 98; BMI 23.5
--- NOTE | 2020-03-31 10:20 | XR_ITS ---
PROCEDURE: XR CHEST 2V CLINICAL HISTORY: right chest wall pain COMPARISON: CXR2V XR chest 2V from 10/20/2018 XR CHEST 2V from 12/09/2019 XR CHEST 2V from 12/22/2019 FINDINGS: This is a poor inspiratory effort accentuating the size of the cardiac silhouette. There probably is borderline cardiomegaly. There appears to be mild left atrial enlargement. There is slight lateral elevation of the right hemidiaphragm with right basilar atelectasis a small subpulmonic pleural effusion cannot be entirely excluded. The lung shafer appear clear of active infiltrate. There is mild gaseous dilatation of the splenic flexure of the colon. No acute bony abnormalities. IMPRESSION: Poor inspiration, probable right basilar atelectasis and small right pleural effusion, no obvious failure identified Dictated by: Dr. Selvin Kendall MD 03/31/2020 11:[address] Selvin Kendall MD in [place] 03/31/2020 11:46
[2020-03-31 10:37] LABS: Basophils % 0.1 % (0.1-2.0); Eosinophils # 0.1 K/mm3 (0.0-0.4); Eosinophils % 0.4 % (0.1-12.0); Hematocrit 25.3 % (42.0-52.0); Lymphocytes # 2.2 K/mm3 (0.7-4.5); Lymphocytes % 13.9 % (10-50); Mean Corpuscular HGB Conc 29.7 g/dL (31.8-35.4); Mean Corpuscular Hemoglobin 20.4 pg (27.0-31.2); Mean Corpuscular Volume 68.7 fl (80-94); Mean Platelet Volume 6.7 fl (7.4-10.4); Monocytes # 0.8 K/mm3 (0.1-1.0); Monocytes % 5.1 % (1.7-9.3); Neutrophils # 12.5 K/mm3 (1.8-7.8); Neutrophils % 80.4 % (37.0-80.0); Platelet Count 893 K/mm3 (142-424); Red Blood Count 3.68 M/mm3 (4.60-6.20); Red Cell Distribution Width 16.1 % (11.5-17.5); White Blood Count 15.6 K/mm3 (4.8-10.8)
[2020-03-31 10:40] LABS: Chloride 93 mmol/L (98-107); Potassium 5.2 mmoL/L (3.5-5.1); Sodium 129 mmol/L (136-145)
[2020-03-31 10:41] LABS: Hemoglobin 7.5 g/dL (14.1-18.0); MANUAL DIFFERENTIAL MANUAL DIFFERENTIAL (MANUAL DIFF)
[2020-03-31 10:42] LABS: Blood Urea Nitrogen 25 mg/dl (9-20); Creatinine Clearance Estimated 52 mL/min (50-200); Estimated Glomerular Filt Rate 48 ml/min (>60); GFR (African American) 58 ML/MIN (>60)
[2020-03-31 10:43] LABS: Anion Gap 16.2 mEq/L (5-15); Calcium 9.5 mg/dl (8.4-10.2); Carbon Dioxide 25 mmol/L (22.0-30.0); Glucose 139 mg/dl (74-100)
[2020-03-31 10:53] LABS: Anisocytosis 2+; Hypochromasia 3+; Lymphocytes % 15 % (10-50); Microcytosis 2+; Monocytes % 2 % (2-9); Neutrophils % 82 % (42-76); Platelet Estimate Marked Increase; Poikilocytosis 2+; Total Cells Counted 100
[2020-03-31 11:06] LABS: D-Dimer 2980 ng/mL (0-400)
--- NOTE | 2020-03-31 11:06 | CT_ITS ---
PROCEDURE: CT ANGIO CHEST CLINCIAL INDICATION: PE? Right chest wall pain, elevated D-dimer COMPARISON: No exams were available for comparison TECHNIQUE: IV Contrast: 70ML OPTIRAY 350 Axial images obtained with sagittal and coronal reformats. All CT scans at the facility use one or more dose reduction, viz: automated exposure control, ma/kV adjustment per patient size (including targeted exams where dose is matched to indication, i.e. head), or iterative reconstruction technique. FINDINGS: HEART AND MEDIASTINAL STRUCTURES: There is borderline cardiomegaly with left ventricular prominence. There is excellent vascular opacification and there is no CT evidence of pulmonary emboli. LUNGS AND PLEURAL SPACES: Is a somewhat poor inspiration and there is prominent atelectasis at the right base and right posterior gutter.1 the lung shafer appear clear of active infiltrate. BONY STRUCTURES: There is prominent multilevel degenerate changes of the lower thoracic spine. UPPER ABDOMEN: There is a large bilobed mass involving the majority of the right lobe of the liver with a thin island of normal liver parenchyma between the 2 hypodense masses best appreciated on the axial images. Both show mild peripheral enhancement and mild internal somewhat heterogenic enhancement. A primary hepatoma is a likely possibility and suggest follow-up CT scan abdomen and pelvis for additional evaluation. Metastatic disease to the liver would be less likely. This mass is likely the cause of the elevated right hemidiaphragm and the right chest wall pain. ADDITIONAL FINDINGS: No other significant abnormalities. IMPRESSION: No evidence of pulmonary emboli, large somewhat bilobed liver mass, the anterior half of the bilobed mass measuring 8.8 x 9.7 cm on the axial image the posterior portion of the bilobed mass measures 10.5 cm by 5.6 cm on the axial image by 10.2 cm superior inferior dimension Dictated by: Dr. Selvin Kendall MD 03/31/2020 12:[address] Selvin Kendall MD in [place] 03/31/2020 12:14
[2020-03-31 11:07] VITALS: BP 117/69; PULSE 89
--- NOTE | 2020-03-31 11:28 | PC.NURSE ---
Pt to rad.
--- NOTE | 2020-03-31 11:50 | PC.NURSE ---
[address] D Dimer reported to Dr Gamez at this time
--- NOTE | 2020-03-31 11:51 | PC.NURSE ---
Pt returned from rad.
[2020-03-31 11:56] VITALS: BP 125/63; PULSE 72; O2SAT 99
--- NOTE | 2020-03-31 11:57 | PC.NURSE ---
Pt given pillow at this time per request.
[2020-03-31 12:34] VITALS: BP 120/78; PULSE 89; RESP 22; TEMP 36.6; O2SAT 98
== END 2020-03-31 12:36 | disposition home or self-care (01) ==
PROVIDERS: Emergency Provider Emergency Medicine; PCP Family Medicine
DX: R16.0 Hepatomegaly, not elsewhere classified (principal); D64.9 Anemia, unspecified; R07.81 Pleurodynia; I10 Essential (primary) hypertension; E78.5 Hyperlipidemia, unspecified; F17.210 Nicotine dependence, cigarettes, uncomplicated; I25.10 Atherosclerotic heart disease of native coronary artery without angina pectoris
CPT/HCPCS: 71046; 71275; 80048; 85007; 85025; 85378; 96365; 96375; 99283; Q9967

== ENCOUNTER → 2020-04-01 16:44 | Outpatient (CLI) | payer OTHER, SELFPAY | PROVIDERS: Visit Provider Family Medicine | DX: D50.9 Iron deficiency anemia, unspecified (principal) | CPT/HCPCS: 36415; 86850 ==

== ENCOUNTER 2020-04-02 08:41 | Outpatient (CLI) | payer OTHER, SELFPAY ==
[2020-04-02] VITALS (20 sets, daily range): BP systolic 116–132; BP diastolic 59–75; PULSE 68–125; RESP 18–20; TEMP 36.7–37.6; O2SAT 95–99; BMI 23.6
[2020-04-02 10:57] LABS: Adenovirus,PCR Not Detected (NotDetected); Bordetella Pertussis Not Detected (NotDetected); Chlamydophila Pneumoniae, PCR Not Detected (NotDetected); Coronavirus 19, PCR Not Detected (NotDetected); Coronavirus 229E Not Detected (NotDetected); Coronavirus NL63 Not Detected (NotDetected); Coronavirus OC43 Not Detected (NotDetected); Coronovirus HKU1,PCR Not Detected (NotDetected); Human Metapneumovirus Not Detected (NotDetected); Influenza A, PCR Not Detected (NotDetected); Influenza AH1, 2009 Not Detected (NotDetected); Influenza AH1, PCR Not Detected (NotDetected); Influenza AH3,PCR Not Detected (NotDetected); Influenza B, PCR Not Detected (NotDetected); Mycoplasma Pneumoniae, PCR Not Detected (NotDected); Parainfluenza 1, PCR Not Detected (NotDetected); Parainfluenza 2, PCR Not Detected (NotDetected); Parainfluenza 3, PCR Not Detected (NotDetected); Parainfluenza 4, PCR Not Detected (NotDetected); Respiratory Syncytial Virus Not Detected (NotDetected); Rhinovirus/Enterovirus Not Detected (NotDetected)
[2020-04-02 14:52] LABS: Hematocrit 28.4 % (42.0-52.0); Hemoglobin 9.1 g/dL (14.1-18.0)
== END 2020-04-02 14:45 | disposition home or self-care (01) ==
LOC: INF 08:41
PROVIDERS: Visit Provider Family Medicine
DX: D64.9 Anemia, unspecified (principal)
CPT/HCPCS: 36430; 85014; 85018; 87581; 87633; 87798; P9016

== ENCOUNTER → 2020-04-03 11:09 | Outpatient (CLI) | payer OTHER, SELFPAY ==
--- NOTE | 2020-04-03 11:17 | CT_ITS ---
PROCEDURE: CT ABDOMEN PELVIS WO/W CON CLINICAL INDICATION: RT LIVER MASS COMPARISON: CT ANGIO CHEST from 03/31/2020 TECHNIQUE: IV Contrast: 75ML OPTIRAY 350 Oral Contrast 20ml Gastroview Axial images obtained with sagittal and coronal reformats. All CT scans at the facility use one or more dose reduction, viz: automated exposure control, ma/kV adjustment per patient size (including targeted exams where dose is matched to indication, i.e. head), or iterative reconstruction technique. FINDINGS: This exam is performed without and with dynamic post enhanced images. There is a large complex cystic mass in the right lobe of the liver in both the posterior and anterior segments of the right lobe of the liver in segments 7 and 8. This lesion measures 15 cm AP, 10 cm transverse, and 10 cm cephalad caudad. There is a peripheral capsule around this lesion which is somewhat thickened laterally and inferiorly with some irregular increased density along the inferior margin of the lesion. This does not have characteristics of a hemangioma. There is no associated biliary dilatation. No other liver lesions are evident. There is associated elevation of the right hemidiaphragm with small right pleural effusion and right basilar atelectasis. There are mild atelectatic changes also in the left lower lobe. The spleen, adrenal glands, pancreas, and kidneys have an unremarkable appearance. No intestinal obstruction or free air. The gallbladder has an unremarkable appearance. No evidence of appendicitis. There is diverticulosis of the descending and sigmoid colon. There is some mild thickening of the descending/sigmoid colon junction nonspecific. No evidence of diverticulitis. Prostate is prominent at 5.3 cm. No acute bony findings. IMPRESSION: Large complex cystic mass of the right lobe of the liver with a mildly thickened capsule with associated small right pleural effusion and atelectatic changes of the right lower lobe. The differential diagnosis would include hepatic abscess including amoebic abscess. Hepatocellular carcinoma and cystic metastasis is also included in the differential diagnosis. Dictated by: Flynn Richard MD 04/04/2020 12:13 Electronically signed by Flynn Richard MD in [place] 04/04/2020 12:13
[2020-04-03 11:58] LABS: Blood Urea Nitrogen 21 mg/dl (9-20); Estimated Glomerular Filt Rate 52 ml/min (>60); GFR (African American) 63 ML/MIN (>60)
== END ==
PROVIDERS: PCP Family Medicine; Visit Provider Family Medicine
DX: R16.0 Hepatomegaly, not elsewhere classified (principal)
CPT/HCPCS: 36415; 74178; 82565; 84520; Q9967

== ENCOUNTER 2020-04-08 09:15 | Day surgery (SDC) | payer OTHER, SELFPAY ==
--- NOTE | 2020-04-03 10:40 | SUR.PREOP ---
LM- that patient needed to have COVID testing completed before procedure. To come on 04/05 between 8-12pm. Instructed pt to call preop back for further information
[2020-04-05 13:13] VITALS: BMI 22.7
[2020-04-08] VITALS (8 sets, daily range): BP systolic 102–132; BP diastolic 66–84; PULSE 79–108; RESP 18; TEMP 36.2–36.9; O2SAT 92–98
[2020-04-08 10:40] LABS: Coronavirus 19 IgG Antibody Negative (Negative); Coronavirus 19 IgM Antibody Negative (Negative)
--- NOTE | 2020-04-08 11:16 | P.PCN_ITS ---
[facility] Procedure Note Procedure Note:: Upper Endoscopy Procedure Report: Esophagogastroduodenoscopy with cold biopsies Endoscopost: Anup Wilson II, MD Referring Physician: Cristopher Redmond MD Date of Procedure: April 08, 2020 Equipment: Olympus GIF 180 standard upper endoscope Sedation: MAC sedation Indications: Mr. Bahena is a 59-year-old gentleman who had been seen multiple times to the emergency department for an infectious illness from November and December. However, he has had ongoing discomfort in the right upper quadrant and sometimes into the right shoulder blade. He has lost 15 pounds in the last 4 to 5 months. His blood work did show a moderate anemia (hemoglobin 7.5 and hematocrit 25.3) with MCV of 68.7. The patient did have a CT scan of the abdomen and pelvis showing a large complex cystic mass (septated cyst) in the liver with a thickened capsule and associated right pleural effusion. The differential was inclusive of hepatocellular carcinoma and cystic metastasis versus amoebic abscess or Echinococcal cyst. Procedure: Prior to the procedure, a history and physical exam was performed, and patient's medications and allergies were reviewed. The risks, benefits and alternatives of the sedation and procedure were discussed with the patient. All questions were answered and informed consent was obtained. The patient was brought to the procedure room. Patient identification and proposed procedure were verified by the physician and the nurse. The patient was placed in a left lateral decubitus position and the scope was passed under direct vision. Throughout the procedure, the patient's blood pressure, pulse, and oxygen saturations were monitored continuously. The upper GI endoscopy was accomplished without difficulty. The patient tolerated the procedure well. Findings: The scope was passed directly into the upper esophagus and advanced to the third portion of the duodenum. The post bulbar duodenum and duodenal bulb were normal with normal mucosa and conniventes. Cold biopsies were taken from the duodenum to rule out celiac disease. The scope was withdrawn through a normal duodenal bulb and pylorus into the stomach. There was mild linear reactive gastropathy of the antrum and body with bile reflux. The remainder of the antrum, body and fundus of the stomach were grossly normal. Upon retroflexion there was a 2 to 3 cm hiatal hernia. 2 biopsies were taken in the antrum and along the lesser curvature for histology to rule out gastritis and/or H pylori. The scope was then withdrawn into the esophagus. There was very mild changes of reflux esophagitis (grade A) and biopsies were taken at the GE junction. The remainder of the esophageal mucosa was normal. Impression: 1. Very mild reflux esophagitis (grade A) 2. Mild linear reactive gastropathy Plan: There were no upper endoscopic findings that would explain any primary malignancy or source of GI blood loss. I will plan to proceed with colonoscopy. I did review the CAT scan and I will send additional blood work which should include CEA and CA-19-9. I would consider amoebic titers if colonoscopy is normal. I would also consider serologic testing for echinococcal granulosis especially if his colonoscopy is normal. Certainly complex cysts of the liver are rarely cystadenomas of the liver or even cystadenocarcinoma of the liver or biliary system.
--- NOTE | 2020-04-08 11:26 | SUR.OPER ---
COLONOSCOPY ABORTED DUE TO POOR BOWEL PREP
--- NOTE | 2020-04-08 11:27 | HMH.PROC ---
[facility] Procedure Note Procedure Note:: Attempted Colonoscopy/Flexible Sigmoidoscopy Procedure Report: Endoscopist: Anup Wilson II, MD Referring physician: Cristopher Redmond Date of Procedure: April 08, 2020 Equipment: Olympus 180 variable stiffness pediatric colonoscope Sedation: MAC sedation Indication: Mr. Bahena is a 59-year-old gentleman with a complex cystic mass in the liver (15 x 10 x 10 cm) in the right lobe of the liver on CT scan imaging. The patient has had a right upper quadrant and right shoulder blade pain and discomfort. He has lost 15 pounds in the last 4 to 5 months. The patient does have some chronic constipation. The patient does report that his maternal aunt had colon cancer and his mother had colonic polyps and possibly malignant polyp. He did note some dark stools with iron. This is his first colonoscopy. Procedure: Prior to the procedure, a history and physical exam was performed, and patient's medications and allergies were reviewed. The risks, benefits and alternatives of the sedation and procedure were discussed with the patient. All questions were answered and informed consent was obtained. The patient was brought to the procedure room. Patient identification and proposed procedure were verified by the physician and the nurse. The patient was placed in a left lateral decubitus position and the scope was passed under direct vision. Throughout the procedure, the patient's blood pressure, pulse, and oxygen saturations were monitored continuously. The colonoscopy was accomplished without difficulty. The patient tolerated the procedure well. Findings: On digital rectal examination there was palpable stool. The scope was inserted into the anal canal and advanced approximately 15 cm. There was a marked amount of solid and some liquid stool and the colonic mucosa could not be visualized. The procedure was aborted due to poor bowel preparation. Impression: 1. Unprepped colonoscopy Plan: I will plan to do more vigorous bowel preparation and repeat colonoscopy later this week. I am also going to go ahead and obtain tumor markers (CEA CA-19-9 and alpha-fetoprotein). I am suspicious of a primary or secondary hepatic carcinoma. However, this is a complex cyst that did not change much with the portal venous portion of imaging of CAT scan. If colonoscopy and tumor markers are near normal, would send echinococcal antigen testing and possibly blood culture for Entamoeba histolytica. I would like to obtain routine liver chemistries today as well which I do not have.
[2020-04-08 12:36] LABS: Chloride 95 mmol/L (98-107); Potassium 4.1 mmoL/L (3.5-5.1); Sodium 130 mmol/L (136-145)
[2020-04-08 12:38] LABS: Alanine Aminotransferase 75 U/L (12-78); Alkaline Phosphatase 310 U/L (38-126); Aspartate Amino Transferase 67 U/L (17-59); Bilirubin,Total 0.5 mg/dl (0.2-1.3); Blood Urea Nitrogen 23 mg/dl (9-20); Creatinine Clearance Estimated 63 mL/min (50-200); Estimated Glomerular Filt Rate 62 ml/min (>60); GFR (African American) 76 ML/MIN (>60)
[2020-04-08 12:39] LABS: Albumin Level 2.5 g/dl (3.5-5.0); Albumin/Globulin Ratio 0.6 (1.1-1.8); Anion Gap 13.1 mEq/L (5-15); Calcium 8.5 mg/dl (8.4-10.2); Carbon Dioxide 26 mmol/L (22.0-30.0); Glucose 122 mg/dl (74-100); Iron 13 ug/dL (49-181); Total Protein,Serum 6.5 g/dl (6.3-8.2)
[2020-04-08 12:44] LABS: C-Reactive Protein 245.7 mg/L (0-4)
[2020-04-08 12:52] LABS: Total Iron Binding Capacity 221 ug/dL (261-462)
[2020-04-08 13:16] LABS: Ferritin 182 ng/ml (17.9-464)
[2020-04-09 10:38] LABS: AFP, Tumor Marker 2.2 ng/mL (0.0-8.3); CA 19-9 4 U/mL (0-35); CEA 0.6 ng/mL (0.0-4.7)
== END 2020-04-08 13:00 | disposition home or self-care (01) ==
PROVIDERS: PCP Family Medicine; Visit Provider Internal Medicine Gastroenterology
PROC: 0DJ08ZZ Inspection of Upper Intestinal Tract, Via Natural or Artificial Opening Endoscopic (ICD-10-PCS; CPT 43235; principal; 2020-04-08 11:30)
DX: K21.0 Gastro-esophageal reflux disease with esophagitis (principal); K44.9 Diaphragmatic hernia without obstruction or gangrene; K31.9 Disease of stomach and duodenum, unspecified; Z91.19 Patient's noncompliance with other medical treatment and regimen; Z83.71 Family history of colonic polyps; I10 Essential (primary) hypertension; Z80.8 Family history of malignant neoplasm of other organs or systems; Z83.3 Family history of diabetes mellitus; Z84.1 Family history of disorders of kidney and ureter; Z79.899 Other long term (current) drug therapy; R10.11 Right upper quadrant pain; R16.0 Hepatomegaly, not elsewhere classified
CPT/HCPCS: 45378; 43239; 36415; 80053; 82105; 82378; 82728; 83540; 83550; 86140; 86316; 86328

== ENCOUNTER → 2020-04-08 09:51 | Outpatient (CLI) | payer OTHER, SELFPAY ==
--- NOTE | 2020-04-08 11:01 | HMH.ANESCL ---
[facility] Anesthesia Checklist - Patient Identification Patient Identification: Arm Band - Structural Data Admitted From: Home Planned Operative Procedure/s: egd/colonoscopy Consent for Planned Operative Procedure(s) Verified: Yes Verified Documents: Surgical Consent, History and Physical - NPO Status Verified Time NPO: 00:00 - Additional verifications Anesthesia Reactions: No - Airway Assessment C-Spine Mobility Assessed: Yes (mp2) TMJ Mobility Assessed: Yes Dentition: Good Dentition - Neurological Assessment Level of Consciousness: Awake, Alert - Anesthesia Plan Anesthesia Risk discussed: Yes Anesthesia Plan: Verified ASA Class: III Anesthesia Type: MAC [facility] History I have reviewed the patient's past medical history: Yes Medical History: Reports:: Congestive Heart Failure, Coronary Artery Disease, Hyperlipidemia, Hypertension Denies:: Cancer, Diabetes Mellitus Type 1, Diabetes Mellitus Type 2, Internal Pacemaker, MRSA, Seizures *Have you ever received a pneumonia vaccine?: No *Have you received a flu vaccine this season?: No Other Medical History: Reports: Sinus Problems Anesthesia experience/problems:: nac Other Surgeries: No: Pacemaker Amputation: No Fractures: No - *Social History Smoking Status: Never smoker Tobacco Type: cigarettes # Packs/Day (cigarettes): 1 Alcohol Intake: never Alcohol Intake Frequency:: holidays/special occasions only Substance Use Type: denies use *Occupational Status:: employed, other Housing: house Household Members: family *Travel in the last 8 weeks: None Family Hx:: Cancer, Coronary Artery Disease, Diabetes
== END ==
PROVIDERS: Visit Provider Internal Medicine Gastroenterology
DX: Z01.818 Encounter for other preprocedural examination (principal)
CPT/HCPCS: 36415; 86328

== ENCOUNTER → 2020-04-10 16:11 | Outpatient (CLI) | payer OTHER, SELFPAY ==
[2020-04-10 16:54] LABS: Coronavirus 19 IgG Antibody Negative (Negative); Coronavirus 19 IgM Antibody Negative (Negative)
== END ==
PROVIDERS: Visit Provider Internal Medicine Gastroenterology
DX: Z01.818 Encounter for other preprocedural examination (principal)
CPT/HCPCS: 36415; 86328

== ENCOUNTER 2020-04-12 16:08 | Inpatient (IN) | payer OTHER, SELFPAY ==
--- NOTE | 2020-04-10 11:13 | SUR.PREOP ---
04/10/2020 @ 1115--PHONE CALL MADE TO PATIENT. PATIENT UNDERSTANDS THAT LAB WORK AND COVID TESTING NEEDS TO BE COMPLETED BETWEEN 8-12PM ON 04/11/2020. PATIENT UNDERSTANDS IF LAB WORK AND COVID-19 TESTS ARE NOT COMPLETED BY 12PM ON THAT DATE, THE SURGERY SCHEDULED WILL BE CANCELLED AND RESCHEDULED FOR ANOTHER TIME.
[2020-04-12] VITALS (11 sets, daily range): BP systolic 104–147; BP diastolic 65–87; PULSE 86–111; RESP 16–20; TEMP 36.7–36.9; O2SAT 94–99; BMI 22.7
--- NOTE | 2020-04-12 13:15 | P.PCN_ITS ---
[facility] Procedure Note Procedure Note:: Flexible Sigmoidoscopy Procedure Report: Sigmoidoscopy Endoscopist: Anup Wilson II, MD Referring physician: Cristopher Redmond MD Date of Procedure: April 12, 2020 Equipment: Olympus 180 variable stiffness pediatric colonoscope Sedation: MAC sedation Indication: Mr. 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 He also has iron deficiency anemia. He did have EGD and unprepped colon on this past Wednesday (April 08, 2020). His EGD showed no significant etiology of primary cancer or chronic GI blood loss. His sigmoidoscopy was unprepped. He does have some chronic constipation. He did have additional lab work showing normal CA-19-9 (4), normal CEA (0.6) and normal alpha-fetoprotein (2.2). The patient did have an elevated alkaline phosphatase of 310 but his total bilirubin was 0.5. His AST 67 and ALT 75 were mildly elevated. His C-reactive protein (245.7) was markedly elevated. Procedure: Prior to the procedure, a history and physical exam was performed, and patient's medications and allergies were reviewed. The risks, benefits and alternatives of the sedation and procedure were discussed with the patient. All questions were answered and informed consent was obtained. The patient was brought to the procedure room. Patient identification and proposed procedure were verified by the physician and the nurse. The patient was placed in a left lateral decubitus position and the scope was passed under direct vision. Throughout the procedu re, the patient's blood pressure, pulse, and oxygen saturations were monitored continuously. The colonoscopy was accomplished without difficulty. The patient tolerated the procedure well. Findings: On digital rectal examination there was normal rectal tone. The scope was then inserted through the anal canal into the rectum and advanced no more than 15 cm because of a marked amount of solid stool within the rectum. The scope could not be advanced further due to the very poor bowel preparation. Impression: 1. Poor bowel preparation Plan: I am quite surprised and there is no evidence of obstruction on CT scan. To have this degree of solid stool is evidence of no obstructive lesion of the colon. We did review the bowel preparation thoroughly on Wednesday. I am concerned about the septated lesion and possibly hepatic abscess or echinococcal cyst. I am also concerned about his microcytic anemia and potential for colon cancer with cystic metastasis to the liver. I am going to attempt to see if he can do Hemoccult and possibly Cologuard today. I will be out of town next week. Given the need to get definitive answers, he may have to have his colonoscopy elsewhere next week.
--- NOTE | 2020-04-12 16:33 | SUR.PHASEII ---
pt. taken to floor via w/c. Report given to POLO Hernandez and POLO Aguirre. Pt. stable.
--- NOTE | 2020-04-12 16:49 | HMH.HP ---
*Admission Date: 04/12/20 *Chief complaint: Incomplete bowel prep *History of present illness: 59-year-old male who for the second time this week a colonoscopy was attempted due to newly diagnosed microcytic anemia in the presence of a septated cystic liver lesion. Unfortunately for the second time this week patient had an incomplete bowel prep. Decision is been made to admit the patient for inpatient bowel prep. Patient's medical history recently is significant for onset of malaise with subjective fevers in late November and early December. Patient had an office-based work-up as well as an ER visit with findings of mild anemia. Patient was briefly lost to follow-up and upon return visit was found to have worsening anemia that was microcytic in nature. Patient was referred for colonoscopy but unbeknownst to us he had delayed the colonoscopy. Patient subsequently returned to the emergency department earlier in the month with right-sided chest pain that radiated up into the shoulder. A CT scan of the chest at that time to rule out a pulmonary embolism showed a large cystic liver mass. Patient was seen in my office the following day and an outpatient CT of the abdomen and pelvis was arranged and patient was scheduled for a colonoscopy. Abdominal and pelvis CT showed a septated cystic liver mass with a broad differential. Viral hepatitis serologies were negative for hepatitis B and C. On April 08 patient's first colonoscopy was attempted and was unsuccessful. Decision was made to do an extensive outpatient bowel prep. On repeat colonoscopy performed April 12 patient had incomplete bowel prep with inability to advance the colonoscope beyond 15 cm before reaching solid stool. Decision was made to admit the patient for inpatient bowel prep with scheduled repeat colonoscopy on April 15. Patient's family history is also significant for multiple malignancies including breast cancer, lung cancer, colon cancer. [facility] History I have reviewed the patient's past medical history: Yes Medical History: Reports:: Congestive Heart Failure, Coronary Artery Disease, Hyperlipidemia, Hypertension Denies:: Cancer, Diabetes Mellitus Type 1, Diabetes Mellitus Type 2, Internal Pacemaker, MRSA, Seizures *Have you ever received a pneumonia vaccine?: No *Have you received a flu vaccine this season?: No Other Medical History: Reports: Sinus Problems Other Surgeries: Yes: No Previous Surgery. No: Pacemaker Amputation: No Fractures: No - *Social History Educational Level: Completed High School Smoking Status: Never smoker Tobacco Type: cigarettes # Packs/Day (cigarettes): 1 Alcohol Intake: never Alcohol Intake Frequency:: holidays/special occasions only Substance Use Type: denies use *Occupational Status:: employed Housing: house Household Members: family *Travel in the last 8 weeks: None Family Hx:: Cancer, Coronary Artery Disease, Diabetes Review of Systems - Constitutional Reports fatigue, Reports lack of energy, Reports weight loss - *Cardiovascular Reports chest pain (Believed to be referred from the large cystic liver mass), Reports shortness of breath with activity, Denies chest pain at rest, Denies irregular heart rhythm - *Respiratory Denies change in phlegm color, Denies chest congestion, Denies cough - *Gastrointestinal Reports constipation, Denies bloating, Denies heartburn, Denies vomiting blood - *Genitourinary Denies difficulty urinating - *Musculoskeletal Denies abnormal walking - Integumentary/Breasts Denies acne Meds Home Medications Medication Instructions Recorded Confirmed Type bisoproloL fumarate [Bisoprolol 10 mg PO DAILY 12/25/19 04/12/20 History 10mg Tablet] amlodipine 10 mg tablet 10 mg PO DAILY #90 tab 03/19/20 04/12/20 Rx furosemide 40 mg tablet 40 mg PO DAILY #30 tab 03/20/20 04/12/20 Rx potassium chloride 20 mEq 20 meq PO BID #60 tab 03/22/20 04/12/20 Rx tablet,extended release(part/cryst) Hydrocodone/Acetaminoph
--- NOTE | 2020-04-12 18:02 | PC.NURSE ---
Pt has a LLE wound/abscess with blisters. Appears to be cellulitis as area is reddened and warm. Painful to touch. He got OOB and ambulated around the hallway without difficulty. Tylenol prn effective for CHOI. No other issues noted. Awaiting cx results from LLE wound.
--- NOTE | 2020-04-12 18:16 | PC.NURSE ---
New admit this shift from the OR. Pt has had 2 incomplete bowel preps this wk secondary to a suspected mass. Pt has a new dx of liver mass. Skin is jaundiced. He is A&O but [place]. Is ambulatory with a cane. Hx obtained from sister as he is a poor historian. Mineral oil enema completed at end of shift. Buttocks is red and excoriated. Will apply barrier cream. Is on a clear liquid diet. Appetite is poor. TEDS applied to BLE. Has 20g PIV in right hand with LR infusing @ 25ml/hr.
--- NOTE | 2020-04-12 18:57 | PC.NURSE ---
Pt had $10 in his shirt pocket. Money counted and confirmed with Kevin Reynolds RN and placed in locked med drawer. Money consisted of (1) $5 bill and (5) $1 bills.
--- NOTE | 2020-04-12 19:09 | PC.NURSE ---
report given to caterina
[2020-04-13] VITALS (27 sets, daily range): BP systolic 107–142; BP diastolic 64–80; PULSE 73–148; RESP 16–20; TEMP 36.4–37.1; O2SAT 91–100; BMI 22.3
--- NOTE | 2020-04-13 03:33 | PC.NURSE ---
PT. HAS NOT HAD A BM, BUT STATES HE FEELS THE NEED TO . REPORTS SOME PAIN IN RUQ X2; TX WITH TYLENOL AND NORCO PER MAR; EFFECTIVENESS REPORTED. PT. HAS BEEN AWAKE FOR MAJORITY OF SHIFT THUS FAR. NO COMPLAINTS OF N/V OR DIZZINESS, C/O SOA WITH MOVEMENT.
[2020-04-13 06:41] LABS: Basophils % 0.2 % (0.1-2.0); Eosinophils # 0.1 K/mm3 (0.0-0.4); Eosinophils % 0.5 % (0.1-12.0); Lymphocytes # 1.5 K/mm3 (0.7-4.5); Lymphocytes % 15.2 % (10-50); Mean Corpuscular HGB Conc 31.8 g/dL (31.8-35.4); Mean Corpuscular Hemoglobin 22.8 pg (27.0-31.2); Mean Corpuscular Volume 71.6 fl (80-94); Mean Platelet Volume 7.1 fl (7.4-10.4); Monocytes # 0.8 K/mm3 (0.1-1.0); Monocytes % 7.8 % (1.7-9.3); Neutrophils # 7.5 K/mm3 (1.8-7.8); Neutrophils % 76.3 % (37.0-80.0); Platelet Count 869 K/mm3 (142-424); Red Blood Count 3.06 M/mm3 (4.60-6.20); White Blood Count 9.9 K/mm3 (4.8-10.8)
[2020-04-13 06:49] LABS: Chloride 94 mmol/L (98-107); Sodium 131 mmol/L (136-145)
[2020-04-13 06:50] LABS: Potassium 3.9 mmoL/L (3.5-5.1)
[2020-04-13 06:52] LABS: Alanine Aminotransferase 42 U/L (12-78); Alkaline Phosphatase 287 U/L (38-126); Anion Gap 13.9 mEq/L (5-15); Aspartate Amino Transferase 41 U/L (17-59); Bilirubin,Direct 0.3 mg/dl (0.0-0.4); Bilirubin,Indirect 0.1 mg/dL (0.0-0.9); Bilirubin,Total 0.4 mg/dl (0.2-1.3); Bilirubin,Unconjugated 0.1 mg/dL (0.0-1.1); Blood Urea Nitrogen 12 mg/dl (9-20); Carbon Dioxide 27 mmol/L (22.0-30.0); Creatinine Clearance Estimated 74 mL/min (50-200); Estimated Glomerular Filt Rate 77 ml/min (>60); GFR (African American) 93 ML/MIN (>60)
[2020-04-13 06:53] LABS: Albumin Level 2.9 g/dl (3.5-5.0); Calcium 8.4 mg/dl (8.4-10.2); Glucose 114 mg/dl (74-100); Hematocrit 21.9 % (42.0-52.0); Total Protein,Serum 7.5 g/dl (6.3-8.2)
--- NOTE | 2020-04-13 08:17 | P.PN_ITS ---
Internal Medicine - PN: Subj *Date: 04/13/20 *Time: 08:17 Interval history: Patient has no complaints this morning. He received a mineral oil enema yesterday evening with very little passage of stool afterwards. He is already received a lactulose enema this morning and staff reports patient is required to bed change 3 times and has had some liquidy brown stool. Patient denies abdominal pain. Labs have revealed recurring anemia Exam Vital signs and Labs for Last 24 Hours: Temp Pulse Resp BP Pulse Ox 97.9 F 102 H 19 142/80 H 92 L 04/13/20 04:00 04/13/20 04:00 04/13/20 04:00 04/13/20 04:00 04/13/20 04:00 Laboratory Results - last 24 hr 04/13/20 06:15: WBC 9.9, RBC 3.06 L, Hgb 7.0 L*, Hct 21.9 L*, MCV 71.6 L, MCH 22.8 L, MCHC 31.8, RDW 21.0 H, Plt Count 869 H, MPV 7.1 L, Neut % (Auto) 76.3, L ymph % (Auto) 15.2, Martin % (Auto) 7.8, Eos % (Auto) 0.5, Baso % (Auto) 0.2, Neut # (Auto) 7.5, Lymph # (Auto) 1.5, Martin # (Auto) 0.8, Eos # (Auto) 0.1, Baso # (Auto) 0.0 04/13/20 06:15: Sodium 131 L, Potassium 3.9, Chloride 94 L, Carbon Dioxide 27, Anion Gap 13.9, BUN 12, Creatinine 1.00, Estimated Creat Clear 74, Estimated GFR 77, Est GFR ( Amer) 93, Glucose 114 H, Calcium 8.4, Total Bilirubin 0.4, Direct Bilirubin 0.3, Conjugated Bilirubin 0.0, Indirect Bilirubin 0.1, Unconjugated Bilirubin 0.1, AST 41, ALT 42, Alkaline Phosphatase 287 H, Total Protein 7.5, Albumin 2.9 L I & O for Last 24 hours: Intake & Output 04/10/20 04/11/20 04/12/20 04/13/20 11:59 11:59 11:59 11:59 Intake Total 1780 / 1780 Output Total 925 / 925 Balance 855 / 855 Weight 142 lb 6 oz Narrative: Patient is awake and alert sitting up in bed. Lungs remain clear. Heart has a regular rate and rhythm. Abdomen is soft, nontender, nondistended. Bowel sounds are present. Assessment and Plan (1) Microcytic anemia Current visit: Yes Status: Acute Category: Medical Code(s): D50.9 - Iron deficiency anemia, unspecified (2) Colonoscopy planned Current visit: Yes Status: Acute Category: Medical (3) Encounter for colonoscopy in patient with family history of colon cancer Current visit: Yes Status: Acute Category: Medical Code(s): Z12.11 - Encounter for screening for malignant neoplasm of colon; Z80.0 - Family history of malignant neoplasm of digestive organs (4) Chronic constipation Current visit: Yes Status: Acute Category: Medical Code(s): K59.09 - Other constipation (5) Liver mass Current visit: No Status: Acute Category: Medical Code(s): R16.0 - Hepatomegaly, not elsewhere classified (6) Hypertensive cardiovascular disease Current visit: No Status: Chronic Qualifiers: Heart failure presence: unspecified whether heart failure present Qualified Code(s): I11.9 - Hypertensive heart disease without heart failure Category: Medical Code(s): I11.9 - Hypertensive heart disease without heart failure - Assessment and plan all Dx Assessment and Plan for all problems:: 1. Continue attempts to get adequate bowel prep for anticipated colonoscopy on Wednesday morning. Patient will be given magnesium citrate this morning. This evening he will receive a MoviPrep with split dosing occurring this evening and in the morning. Repeat MoviPrep has been ordered for Wednesday evening. Patient may require additional enemas tomorrow morning.
--- NOTE | 2020-04-13 08:41 | HMH.PHAVTE ---
[facility] Pharm[facility] VTE Monitoring - Patient Demographics Admission date: 04/12/20 Report Date: 04/13/20 Time: 08:41 Allergies/Adverse Reactions: Patient Allergies No Known Allergies Allergy (Verified 04/12/20 12:45) Height: 1.7 m Weight: 64.58 kg Patient Problems: Current Active Problems Microcytic anemia (Acute) Colonoscopy planned (Acute) Encounter for colonoscopy in patient with family history of colon cancer (Acute) Chronic constipation (Acute) - VTE Risk Labs: VTE Related Lab Results Hgb 7.0 g/dL (14.1-18.0) L* 04/13/20 06:15 Hct 21.9 % (42.0-52.0) L* 04/13/20 06:15 Plt Count 869 K/mm3 (142-424) H 04/13/20 06:15 BUN 12 mg/dl (9-20) 04/13/20 06:15 Creatinine 1.00 mg/dl (0.66-1.25) 04/13/20 06:15 Estimated Creat Clear 74 mL/min (50-200) 04/13/20 06:15 Was VTE Risk Assessment Performed: Yes VTE Score: 3 VTE Risk Level: Low Risk - Prophylaxis VTE Prophylaxis Ordered?: Yes Types of VTE Prophylaxis: TEDS Knee High Location of Applied Device: Bilateral Lower Extremeties
--- NOTE | 2020-04-13 17:04 | PC.NURSE ---
PATIENT A&O X4, LUNGS CLEAR, PULSES EQUAL. 2 UNITS BLOOD TRANSFUSION COMPLETE, PATIENT TOLERATED WELL. PATIENT HAS HAD 3 BOWELS MOVEMENTS THUS FAR. 1 SOLID AND 2 WATERY. NO OTHER NEEDS AT THIS TIME.
[2020-04-13 17:39] LABS: Hematocrit 31.3 % (42.0-52.0)
[2020-04-13 17:50] LABS: Hemoglobin 10.3 g/dL (14.1-18.0)
[2020-04-14 04:00] VITALS: BP 144/75; PULSE 103; RESP 18; TEMP 36.8; O2SAT 91
--- NOTE | 2020-04-14 04:14 | PC.NURSE ---
Pt has been up t/o this shift watching tv. A&O x4, lungs sounds clear bilaterally. Pulses are equal and bounding. Active bowel sounds in bilateral upper quadrants and hypoactive bowel sounds in lower quadrants. Pt is on clear liquid diet and has tolerated well. Pt has been up to the [facility] numerous times t/o the night with liquid stools. PIV site flushing appropriately. Pt has reported pain in the right flank area x1. Pain medication administered per MAR. Call light is within reach, along with all other safety measures. No complaints at this time, will continue to monitor.
[2020-04-14 05:00] VITALS: BMI 22.8
[2020-04-14 07:05] LABS: Basophils % 0.1 % (0.1-2.0); Eosinophils % 0.1 % (0.1-12.0); Hematocrit 32.8 % (42.0-52.0); Hemoglobin 10.7 g/dL (14.1-18.0); Lymphocytes # 1.1 K/mm3 (0.7-4.5); Lymphocytes % 9.9 % (10-50); Mean Corpuscular HGB Conc 32.6 g/dL (31.8-35.4); Mean Corpuscular Hemoglobin 25.1 pg (27.0-31.2); Mean Corpuscular Volume 77.1 fl (80-94); Mean Platelet Volume 7.5 fl (7.4-10.4); Monocytes # 0.6 K/mm3 (0.1-1.0); Monocytes % 5.6 % (1.7-9.3); Neutrophils # 9.8 K/mm3 (1.8-7.8); Neutrophils % 84.3 % (37.0-80.0); Red Blood Count 4.26 M/mm3 (4.60-6.20); Red Cell Distribution Width 21.9 % (11.5-17.5); White Blood Count 11.6 K/mm3 (4.8-10.8)
[2020-04-14 07:12] LABS: Platelet Count 954 K/mm3 (142-424)
[2020-04-14 07:19] LABS: Anion Gap 15.6 mEq/L (5-15); Blood Urea Nitrogen 14 mg/dl (9-20); Carbon Dioxide 27 mmol/L (22.0-30.0); Chloride 94 mmol/L (98-107); Creatinine Clearance Estimated 63 mL/min (50-200); Estimated Glomerular Filt Rate 62 ml/min (>60); GFR (African American) 76 ML/MIN (>60); Glucose 167 mg/dl (74-100); Potassium 3.6 mmoL/L (3.5-5.1); Sodium 133 mmol/L (136-145)
[2020-04-14 07:21] LABS: Calcium 9.3 mg/dl (8.4-10.2)
--- NOTE | 2020-04-14 07:43 | HMH.ACPN2 ---
Internal Medicine - PN: Subj *Date: 04/14/20 *Time: 07:43 Interval history: Patient feels much better after blood transfusion. He notes that he is having much more liquid stool that is yellow in color. Exam Vital signs and Labs for Last 24 Hours: Temp Pulse Resp BP Pulse Ox 98.2 F 103 H 18 144/75 H 91 L 04/14/20 04:00 04/14/20 04:00 04/14/20 04:00 04/14/20 04:00 04/14/20 04:00 Laboratory Results - last 24 hr 04/13/20 08:40: Blood Type A Positive, Antibody Screen Negative, Crossmatch (AHG) See Detail 04/13/20 17:15: Hgb 10.3 L D, Hct 31.3 L 04/14/20 06:44: WBC 11.6 H, RBC 4.26 L D, Hgb 10.7 L, Hct 32.8 L, MCV 77.1 L, MCH 25.1 L, MCHC 32.6, RDW 21.9 H, Plt Count 954 H*, MPV 7.5, Neut % (Auto) 84.3 H, Lymph % (Auto) 9.9 L, [place] % (Auto) 5.6, Eos % (Auto) 0.1, Baso % (Auto) 0.1, Neut # (Auto) 9.8 H, Lymph # (Auto) 1.1, [place] # (Auto) 0.6, Eos # (Auto) 0.0, Baso # (Auto) 0.0 04/14/20 06:44: Sodium 133 L, Potassium 3.6, Chloride 94 L, Carbon Dioxide 27, Anion Gap 15.6 H, BUN 14, Creatinine 1.20, Estimated Creat Clear 63, Estimated GFR 62, Est GFR ( Amer) 76, Glucose 167 H, Calcium 9.3 D I & O for Last 24 hours: Intake & Output 04/11/20 04/12/20 04/13/20 04/14/20 11:59 11:59 11:59 11:59 Intake Total 1780 / 1780 1000 / 1000 Output Total 1025 / 1025 525 / 525 Balance 755 / 755 475 / 475 Weight 142 lb 6 oz 145 lb 8 oz Narrative: Pleasant, ambulatory in room. Lungs have good air movement, heart rate regular. Abdomen is soft. No edema or clubbing, neurologically intact except for hard of hearing status Assessment and Plan (1) Microcytic anemia Current visit: Yes Status: Acute Category: Medical Code(s): D50.9 - Iron deficiency anemia, unspecified (2) Colonoscopy planned Current visit: Yes Status: Acute Category: Medical (3) Encounter for colonoscopy in patient with family history of colon cancer Current visit: Yes Status: Acute Category: Medical Code(s): Z12.11 - Encounter for screening for malignant neoplasm of colon; Z80.0 - Family history of malignant neoplasm of digestive organs (4) Chronic constipation Current visit: Yes Status: Acute Category: Medical Code(s): K59.09 - Other constipation (5) Liver mass Current visit: No Status: Acute Category: Medical Code(s): R16.0 - Hepatomegaly, not elsewhere classified (6) Hypertensive cardiovascular disease Current visit: No Status: Chronic Qualifiers: Heart failure presence: unspecified whether heart failure present Qualified Code(s): I11.9 - Hypertensive heart disease without heart failure Category: Medical Code(s): I11.9 - Hypertensive heart disease without heart failure - Assessment and plan all Dx Assessment and Plan for all problems:: Continue prep given complex need for colonoscopy. Blood counts better this morning after transfusion
[2020-04-14 07:57] VITALS: BP 133/78; PULSE 94; RESP 18; TEMP 37.1; O2SAT 92
--- NOTE | 2020-04-14 09:34 | HMH.GSCON ---
*Admission Date: 04/12/20 *Reason for consult:: Colonoscopy *History of present illness: This is a 59-year-old gentleman with a known history of anemia and complex hepatic lesion. He has had 2 separate attempts at colonoscopy by Dr. Anup Wilson. His bowel preparation has been inadequate on both attempts. He has been admitted to the hospital for bowel preparation with the surgical service consulted for colonoscopy tomorrow morning. Review of Systems - Constitutional Denies chills - Eyes Denies discharge - ENT Denies difficulty swallowing - *Cardiovascular Denies chest pain - *Respiratory Denies cough - *Gastrointestinal Denies bright, red blood in stools - *Musculoskeletal Denies deformity - Integumentary/Breasts Denies lesions - *Neurologic Denies abnormal walking - Psychiatric Denies anxiety - Endocrine Denies cold intolerance - Hematologic/Lymphatic Denies easy bleeding - Allergic/Immunologic Denies wheezing [facility] History Medical History: Reports:: Congestive Heart Failure, Coronary Artery Disease, Hyperlipidemia, Hypertension Denies:: Cancer, Diabetes Mellitus Type 1, Diabetes Mellitus Type 2, Internal Pacemaker, MRSA, Seizures *Have you ever received a pneumonia vaccine?: Yes (2018) *Have you received a flu vaccine this season?: No Other Medical History: Reports: Anemia, Liver Disease, Sinus Problems Other Surgeries: Yes: No Previous Surgery. No: Pacemaker Amputation: No Fractures: No - *Social History Educational Level: Completed College Smoking Status: Never smoker Tobacco Type: cigarettes # Packs/Day (cigarettes): 1 Alcohol Intake: former Alcohol Intake Frequency:: holidays/special occasions only Substance Use Type: denies use *Occupational Status:: unemployed Housing: house Household Members: other *Travel in the last 8 weeks: None Family Hx:: Unable to obtain Med Home Medications Medication Instructions Recorded Confirmed Type bisoproloL fumarate [Bisoprolol 10 mg PO DAILY 12/25/19 04/12/20 History 10mg Tablet] amlodipine 10 mg tablet 10 mg PO DAILY #90 tab 03/19/20 04/12/20 Rx furosemide 40 mg tablet 40 mg PO DAILY #30 tab 03/20/20 04/12/20 Rx potassium chloride 20 mEq 20 meq PO BID #60 tab 03/22/20 04/12/20 Rx tablet,extended release(part/cryst) Hydrocodone/Acetaminophen [[place] 1 each PO Q4-6H PRN #9 tab 03/31/20 04/12/20 Rx 5-325 Tablet] losartan 100 mg tablet 100 mg PO DAILY #90 tab 04/01/20 04/12/20 Rx Sennosides/Docusate Sodium 1 each PO DAILY 04/05/20 04/12/20 History [Docusate Sodium-Sennosides Tab] Ferrous Sulfate [Iron 325mg Tab] 325 mg PO TID 04/13/20 04/13/20 History Allergies Allergy/AdvReac Type Severity Reaction Status Date / Time No Known Allergies Allergy Verified 04/12/20 12:45 Exam Vital signs and Labs for Last 24 Hours: Temp Pulse Resp BP Pulse Ox 98.7 F 94 H 18 133/78 92 L 04/14/20 07:57 04/14/20 07:57 04/14/20 07:57 04/14/20 07:57 04/14/20 07:57 Laboratory Results - last 24 hr 04/13/20 08:40: Blood Type A Positive, Antibody Screen Negative, Crossmatch (AHG) See Detail 04/13/20 17:15: Hgb 10.3 L D, Hct 31.3 L 04/14/20 06:44: WBC 11.6 H, RBC 4.26 L D, Hgb 10.7 L, Hct 32.8 L, MCV 77.1 L, MCH 25.1 L, MCHC 32.6, RDW 21.9 H, Plt Count 954 H*, MPV 7.5, Neut % (Auto) 84.3 H, Lymph % (Auto) 9.9 L, [place] % (Auto) 5.6, Eos % (Auto) 0.1, Baso % (Auto) 0.1, Neut # (Auto) 9.8 H, Lymph # (Auto) 1.1, [place] # (Auto) 0.6, Eos # (Auto) 0.0, Baso # (Auto) 0.0 04/14/20 06:44: Sodium 133 L, Potassium 3.6, Chloride 94 L, Carbon Dioxide 27, Anion Gap 15.6 H, BUN 14, Creatinine 1.20, Estimated Creat Clear 63, Estimated GFR 62, Est GFR ( Amer) 76, Glucose 167 H, Calcium 9.3 D I & O for Last 24 hours: Intake & Output 04/11/20 04/12/20 04/13/2021/20 11:59 11:59 11:59 11:59 Intake Total 1780 / 1780 1000 / 1000 Output Total 1025 / 1025 526 / 526 Balance 755 / 755 474 / 474 Weight 142 lb 6 oz 145 lb 8 oz
[2020-04-14 10:11] LABS: Coronavirus 19 IgG Antibody Negative (Negative); Coronavirus 19 IgM Antibody Negative (Negative)
--- NOTE | 2020-04-14 15:09 | PC.NURSE ---
IV changed to L AC, it is saline locked. RR even and unlabored. Pt denies c/o at this time. Pt is alert and oriented and able to make needs known. Pt states he had had a couple loose stools yellow in color this shift. Medicated per mar for R sided side and R shoulder pain. States he is feeling better at this time. Have given report to RN on pt. VSS.
[2020-04-14 15:13] VITALS: BP 111/69; PULSE 76; RESP 20; TEMP 36.6; O2SAT 92
[2020-04-14 20:00] VITALS: BP 136/74; PULSE 98; RESP 24; TEMP 36.8; O2SAT 94
[2020-04-15] VITALS (14 sets, daily range): BP systolic 90–151; BP diastolic 49–82; PULSE 69–99; RESP 14–22; TEMP 36.2–37.3; O2SAT 90–97; BMI 22.0; BMI 22.1
--- NOTE | 2020-04-15 06:23 | PC.NURSE ---
A&OX4. PT HAS NOT C/O ANY VA/VO THIS SHIFT. PT C/O PAIN IN R SIDE AND SHOULDER X1 THIS SHIFT, TREATED WITH PAIN MED PER MAR. ON REASSESSMENT PT RESTING IN BED. PT HAS REPORTED 2 BM THIS SHIFT, 1 YELLOW LIQUID BM, AND 1 CLEAR WITH SMALL COLORFUL PIECES OF FOOD. PT UP AT 0600 ATTEMPTING TO HAVE BM BUT IS UNSUCCESSFUL. PT TOLERATING MOVIPREP SOLUTION WELL. PT HAS NO OTHER COMPLAINTS. PT AMBULATING INDEPENDENTLY IN ROOM. VSS WILL CONTINUE TO MONITOR.
--- NOTE | 2020-04-15 06:54 | HMH.ACPN2 ---
Internal Medicine - PN: Subj *Date: 04/15/20 *Time: 06:54 Interval history: Patient is completing his bowel prep this morning in anticipation of colonoscopy to be performed around 730. Since passing a large brown stool on Wednesday morning patient has passed mostly liquidy yellow stools. Transfusion improved his H&H. Patient admits this morning he feels swollen and full in his abdomen Exam Vital signs and Labs for Last 24 Hours: Temp Pulse Resp BP Pulse Ox 99.1 F 99 H 22 151/82 H 90 L 04/15/20 04:00 04/15/20 04:00 04/15/20 04:00 04/15/20 04:00 04/15/20 04:00 Laboratory Results - last 24 hr 04/14/20 06:44: WBC 11.6 H, RBC 4.26 L D, Hgb 10.7 L, Hct 32.8 L, MCV 77.1 L, MCH 25.1 L, MCHC 32.6, RDW 21.9 H, Plt Count 954 H*, MPV 7.5, Neut % (Auto) 84.3 H, Lymph % (Auto) 9.9 L, [place] % (Auto) 5.6, Eos % (Auto) 0.1, Baso % (Auto) 0.1, Neut # (Auto) 9.8 H, Lymph # (Auto) 1.1, [place] # (Auto) 0.6, Eos # (Auto) 0.0, Baso # (Auto) 0.0 04/14/20 06:44: Sodium 133 L, Potassium 3.6, Chloride 94 L, Carbon Dioxide 27, Anion Gap 15.6 H, BUN 14, Creatinine 1.20, Estimated Creat Clear 63, Estimated GFR 62, Est GFR ( Amer) 76, Glucose 167 H, Calcium 9.3 D 04/14/20 06:44: SARS-CoV-2 IgG Ab (Rapid) Negative, SARS-CoV-2 IgM Ab (Rapid) Negative I & O for Last 24 hours: Intake & Output 04/12/20 04/13/20 04/14/20 04/15/20 11:59 11:59 11:59 11:59 Intake Total 1780 / 1780 1000 / 1000 1200 / 1200 Output Total 1025 / 1025 526 / 526 644 / 644 Balance 755 / 755 474 / 474 556 / 556 Weight 142 lb 6 oz 145 lb 8 oz 140 lb 8 oz Narrative: Patient is in no distress. Lungs are clear. Heart has a regular rate and rhythm. Abdomen is distended and soft. Bowel sounds are present. Assessment and Plan (1) Microcytic anemia Current visit: Yes Status: Acute Category: Medical Code(s): D50.9 - Iron deficiency anemia, unspecified (2) Colonoscopy planned Current visit: Yes Status: Acute Category: Medical (3) Encounter for colonoscopy in patient with family history of colon cancer Current visit: Yes Status: Acute Category: Medical Code(s): Z12.11 - Encounter for screening for malignant neoplasm of colon; Z80.0 - Family history of malignant neoplasm of digestive organs (4) Chronic constipation Current visit: Yes Status: Acute Category: Medical Code(s): K59.09 - Other constipation (5) Liver mass Current visit: No Status: Acute Category: Medical Code(s): R16.0 - Hepatomegaly, not elsewhere classified (6) Hypertensive cardiovascular disease Current visit: No Status: Chronic Qualifiers: Heart failure presence: unspecified whether heart failure present Qualified Code(s): I11.9 - Hypertensive heart disease without heart failure Category: Medical Code(s): I11.9 - Hypertensive heart disease without heart failure - Assessment and plan all Dx Assessment and Plan for all problems:: 1. Attempt colonoscopy this morning by Dr. Soriano.
--- NOTE | 2020-04-15 08:31 | P.PCN_ITS ---
- Procedure: Date: 04/15/20 Procedure Performed:: Colonoscopy with polypectomy and biopsy of complex mass Indications:: This is a 59-year-old gentleman who underwent attempted colonoscopy [address] Anup Wilson. This was the second attempt due to poor preparation noted on the initial effort. His bowel preparation remain exceedingly poor in the procedure was aborted. He was admitted to the hospital for bowel preparation for additional attempt at colonoscopy. Please see the indications for the below from Dr. Wilson' evaluation. From Dr. Wilson' earlier note: Mr. 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 He also has iron deficiency anemia. He did have EGD and unprepped colon on this past Wednesday (April 08, 2020). His EGD showed no significant etiology of primary cancer or chronic GI blood loss. His sigmoidoscopy was unpr epped. He does have some chronic constipation. He did have additional lab work showing normal CA-19-9 (4), normal CEA (0.6) and normal alpha-fetoprotein (2.2). The patient did have an elevated alkaline phosphatase of 310 but his total bilirubin was 0.5. His AST 67 and ALT 75 were mildly elevated. His C-reactive protein (245.7) was markedly elevated. Performing Provider:: Omer Soriano MD Referring Provider:: Dr. Redmond Sedation:: Monitored anesthesia care Procedure:: After informed consent was obtained the patient was taken to the endoscopy suite. Sedation ensued after the patient was transferred to the left lateral decubitus position. Pulse, blood pressure, and oxygen saturation were monitored throughout the procedure. Digital rectal exam revealed no significant abnormality. The colonoscope was placed in position. The entire colon was evaluated. The colonoscope was carefully removed and the patient was transferred to recovery in stable condition. Please see findings and specimens below for detail. Findings:: Prostate somewhat firm/smooth and enlarged Bowel preparation fair to moderate (improved versus prior efforts) Tiny hemorrhoidal cushions Sigmoid diverticulosis Severe spasticity and lack of relaxation making visualization exceptionally difficult Complex cecal polyp (snare) Near circumferential complex right colon mass with projection toward hepatic flexure. The mass was not obstructing; however, it was somewhat difficult to navigate secondary to concomitant narrowing and spasticity (stated above). Polyp with adjacent shallow ulceration between 10 and 15 cm Specimens:: Complex cecal polyp (snare) Multiple biopsies of right colon mass Polyp with adjacent shallow ulceration between 10 and 15 cm Recommendations:: Follow-up pathology Ongoing oncologic evaluation at tertiary care center as planned per primary care provider Complications:: No immediate Estimated blood obtained (mL): 1
--- NOTE | 2020-04-15 12:02 | HMH.DCSUM ---
General - General Admission date:: 04/13/20 Discharge date: 04/15/20 HPI HPI: 59-year-old male who for the second time this week a colonoscopy was attempted due to newly diagnosed microcytic anemia in the presence of a septated cystic liver lesion. Unfortunately for the second time this week patient had an incomplete bowel prep. Decision is been made to admit the patient for inpatient bowel prep. Patient's medical history recently is significant for onset of malaise with subjective fevers in late November and early December. Patient had an office-based work-up as well as an ER visit with findings of mild anemia. Patient was briefly lost to follow-up and upon return visit was found to have worsening anemia that was microcytic in nature. Patient was referred for colonoscopy but unbeknownst to us he had delayed the colonoscopy. Patient subsequently returned to the emergency department earlier in the month with right-sided chest pain that radiated up into the shoulder. A CT scan of the chest at that time to rule out a pulmonary embolism showed a large cystic liver mass. Patient was seen in my office the following day and an outpatient CT of the abdomen and pelvis was arranged and patient was scheduled for a colonoscopy. Abdominal and pelvis CT showed a septated cystic liver mass with a broad differential. Viral hepatitis serologies were negative for hepatitis B and C. On April 08 patient's first colonoscopy was attempted and was unsuccessful. Decision was made to do an extensive outpatient bowel prep. On repeat colonoscopy performed April 12 patient had incomplete bowel prep with inability to advance the colonoscope beyond 15 cm before reaching solid stool. Decision was made to admit the patient for inpatient bowel prep with scheduled repeat colonoscopy on April 15. Patient's family history is also significant for multiple malignancies including breast cancer, lung cancer, colon cancer. Hospital Course Hospital Course: Patient was admitted and underwent and extended bowel prep that included mineral oil and lactulose enemas as well as magnesium citrate and Movi-prep x2. On april 15 patient underwent colonoscopy with discovery of a right sided circumferential colon mass. Biopsies were taken. Patient was discharged to home later in the day. [facility] for further treatments. Objective Vital signs: Temp Pulse Resp BP Pulse Ox 98.2 F 76 16 107/64 L 95 04/15/20 11:00 04/15/20 11:00 04/15/20 11:00 04/15/20 11:00 04/15/20 11:00 DS: Diagnosis - Discharge Diagnosis (1) Microcytic anemia Status: Acute (2) Colonoscopy planned Status: Acute (3) Encounter for colonoscopy in patient with family history of colon cancer Status: Acute (4) Chronic constipation Status: Acute (5) Liver mass Status: Acute (6) Hypertensive cardiovascular disease Status: Chronic Discharge Plan - Patient Discharge Instructions ACTIVITY: Continue current activity DIET: continue same diet Patient Instructions: Colonoscopy, Anemia, DI for Constipation - Follow up Plan Disposition: Home, Self-Alf Medications: Home Medications Medication Instructions Recorded Confirmed Type bisoproloL fumarate [Bisoprolol 10 mg PO DAILY 12/25/19 04/12/20 History 10mg Tablet] amlodipine 10 mg tablet 10 mg PO DAILY #90 tab 03/19/20 04/12/20 Rx furosemide 40 mg tablet 40 mg PO DAILY #30 tab 03/20/20 04/12/20 Rx potassium chloride 20 mEq 20 meq PO BID #60 tab 03/22/20 04/12/20 Rx tablet,extended release(part/cryst) Hydrocodone/Acetaminophen [[place] 1 each PO Q4-6H PRN #9 tab 03/31/20 04/12/20 Rx 5-325 Tablet] losartan 100 mg tablet 100 mg PO DAILY #90 tab 04/01/20 04/12/20 Rx Sennosides/Docusate Sodium 1 each PO DAILY 04/05/20 04/12/20 History [Docusate Sodium-Sennosides Tab] Ferrous Sulfate [Iron 325mg Tab] 325 mg PO TID 04/13/20 04/13/20 History Prescriptions/Me
--- NOTE | 2020-04-15 12:52 | HMH.PHAINT ---
DISCHARGE COUNSELING COMPLETED ON PATIENT. NO NEW MEDICATIONS AT THIS TIME AND PATIENT IS NOT STOPPING ANY CURRENT HOME MEDICATIONS. PATIENT VERBALIZED UNDERSTANDING AND HAD NO QUESTIONS AT THIS TIME. -ANITA CENTENO, TONYAD
== END 2020-04-15 14:35 | disposition home or self-care (01) | DRG 376 ==
LOC: 2ND 16:10
PROVIDERS: Internal Medicine Gastroenterology; Surgery; Admitting Provider Family Medicine; PCP Family Medicine; Visit Provider Family Medicine
PROC: 0DJD8ZZ Inspection of Lower Intestinal Tract, Via Natural or Artificial Opening Endoscopic (ICD-10-PCS; CPT 45378; principal; 2020-04-12 13:00)
DX: D49.0 Neoplasm of unspecified behavior of digestive system (principal); R16.0 Hepatomegaly, not elsewhere classified; D50.9 Iron deficiency anemia, unspecified; K59.09 Other constipation; K63.5 Polyp of colon; I25.10 Atherosclerotic heart disease of native coronary artery without angina pectoris; I11.0 Hypertensive heart disease with heart failure; I50.9 Heart failure, unspecified
CPT/HCPCS: 45330; 45380; 45385; 36415; 80048; 80076; 85014; 85018; 85025; 86328; 86850; 88305; 88342; G0378; J1610; P9016

== ENCOUNTER 2020-04-18 09:44 | Emergency (ER) | payer OTHER, SELFPAY ==
[2020-04-18 09:46] VITALS: BP 126/78; PULSE 95; PULSE 97; RESP 18; RESP 20; O2SAT 93; O2SAT 95; BMI 22.7
--- NOTE | 2020-04-18 09:56 | HMH.EDGENADL ---
ED Disposition Clinical Impression: Recurrent right pleural effusion Pneumonia Qualifiers: Pneumonia type: due to unspecified organism Laterality: right Lung location: lower lobe of lung Qualified Code(s): J18.9 - Pneumonia, unspecified organism Colon cancer Qualifiers: Colon location: unspecified part of colon Qualified Code(s): C18.9 - Malignant neoplasm of colon, unspecified Disposition: Home, Self-Care Condition on Discharge: Fair Instructions: Pneumonia-Adult Additional Instructions: Levaquin as prescribed. You may take [place] 1 to 2 tablets every [address] See [address] Redmond in his office tomorrow, 04/19/2020, at 2 PM. Additional instructions for PNEUMONIA: Return immediately if you have an uncontrollable fever greater than 102 degrees, difficulty breathing or shortness of breath, persistent vomiting, or severe chest pain. Prescriptions: levoFLOXacin [Levaquin 500mg tab] 500 mg PO DAILY #9 tab Transmission Status: Received by [id number] Referrals: Cristopher Redmond MD [Primary Care Provider] - - Critical Care Critical Care Time: No Attestation: On , the high probability of a clinically significant, sudden or life threatening deterioration of the following system(s) required my full and direct attention, intervention and personal management. The time I documented below is in addition to time spent performing reported procedures but includes the following listed in this critical care notation. Medical Decision Making - Medical Records Medical records reviewed: Yes: I reviewed the patient's medical records. - Joshua Inquiry Pt receiving controlled substance: Yes Joshua was queried for this patient: Yes Reference #:: [id number] Risks and benefits of using a controlled substance: were not discussed with pt by me Comment: 3 rxs. most recent 30 norco 04/15/20 Vital Signs: 04/18/20 09:46 04/18/20 10:16 04/18/20 10:30 Temperature Temperature Source Pulse Rate Pulse Rate [Radial] 97 H 77 88 Respiratory Rate 18 18 18 Blood Pressure Blood Pressure [Right Arm] 126/78 126/70 126/77 Blood Pressure Mean [Right Arm] 94 88 93 Blood Pressure Source Blood Pressure Source [Right Arm] Automatic Cuff Automatic Cuff Automatic Cuff Blood Pressure Position Blood Pressure Position [Right Arm] Sitting Sitting Sitting 02 Sat by Pulse Oximetry 93 L 94 L 94 L Oxygen Delivery Method Room Air Room Air Room Air 04/18/20 10:59 04/18/20 11:00 04/18/20 12:54 Temperature 98.3 F 98.2 F Temperature Source Oral Oral Pulse Rate 80 Pulse Rate [Radial] 80 Respiratory Rate 18 18 Blood Pressure 123/80 Blood Pressure [Right Arm] 180/99 H 123/80 Blood Pressure Mean [Right Arm] 126 94 Blood Pressure Source Automatic Cuff Blood Pressure Source [Right Arm] Manual Cuff/ Auscultation Automatic Cuff Blood Pressure Position Sitting Blood Pressure Position [Right Arm] Sitting Sitting 02 Sat by Pulse Oximetry 93 L Oxygen Delivery Method Room Air Room Air - Lab Data Lab results reviewed: Yes: I reviewed the patient's lab results. Lab Results 04/18/20 10:00: WBC 18.0 H, RBC 4.23 L, Hgb 10.6 L, Hct 33.4 L, MCV 79.2 L, MCH 25.0 L, MCHC 31.6 L, RDW 22.6 H, Plt Count 944 H*, MPV 7.3 L, Neut % (Auto) 87.5 H, Lymph % (Auto) 6.4 L, [place] % (Auto) 5.5, Eos % (Auto) 0.3, Baso % (Auto) 0.3, Neut # (Auto) 15.7 H, Lymph # (Auto) 1.1, [place] # (Auto) 1.0, Eos # (Auto) 0.1, Baso # (Auto) 0.1, Total Counted 100, Neutrophils % (Manual) 81 H, Lymphocytes % (Manual) 5 L, Monocytes % (Manual) 14 H, Platelet Estimate Marked increase, RBC Morphology Normal 04/18/20 10:00: Sodium 129 L, Potassium 5.0, Chloride 96 L, Carbon Dioxide 25, Anion Gap 13.0, BUN 17, Creatinine 1.10, Estimated Creat Clear 69, Estimated GFR 69, Est GFR ( Amer) 83, Glucose 139 H, Calcium 9.0, Total Bilirubin 0.6, AST 61 H, ALT 48, Alkaline Phosphatase 317 H, Total Protein 7.9, Albumin 2.9 L, Globulin 5.0 H, Albumin/Globulin R
--- NOTE | 2020-04-18 10:12 | XR_ITS ---
PROCEDURE: XR CHEST 2V CLINICAL HISTORY: R chest pain COMPARISON: XR CHEST 2V from 12/09/2019 XR CHEST 2V from 12/22/2019 XR CHEST 2V from 03/31/2020 CT ANGIO CHEST from 03/31/2020 FINDINGS: There is new moderate size right pleural effusion. Right basilar infiltrate is noted. There is degenerative thoracic scoliosis. Left lung is clear. Heart is enlarged and the soft tissues are intact. IMPRESSION: Right pleural effusion, right basilar infiltrate, cardiomegaly Dictated by: Rock Hightower 04/18/2020 11:05 Electronically signed by Rock Hightower in [facility] 04/18/2020 11:05
[2020-04-18 10:16] VITALS: BP 126/70; PULSE 77; RESP 18; O2SAT 94
[2020-04-18 10:28] LABS: Basophils # 0.1 K/mm3 (0-0.2); Basophils % 0.3 % (0.1-2.0); Chloride 96 mmol/L (98-107); Eosinophils # 0.1 K/mm3 (0.0-0.4); Eosinophils % 0.3 % (0.1-12.0); Hematocrit 33.4 % (42.0-52.0); Hemoglobin 10.6 g/dL (14.1-18.0); Lymphocytes # 1.1 K/mm3 (0.7-4.5); Lymphocytes % 6.4 % (10-50); Mean Corpuscular HGB Conc 31.6 g/dL (31.8-35.4); Mean Corpuscular Volume 79.2 fl (80-94); Mean Platelet Volume 7.3 fl (7.4-10.4); Monocytes % 5.5 % (1.7-9.3); Neutrophils # 15.7 K/mm3 (1.8-7.8); Neutrophils % 87.5 % (37.0-80.0); Platelet Count 944 K/mm3 (142-424); Red Blood Count 4.23 M/mm3 (4.60-6.20); Red Cell Distribution Width 22.6 % (11.5-17.5); Sodium 129 mmol/L (136-145)
[2020-04-18 10:30] VITALS: BP 126/77; PULSE 88; RESP 18; O2SAT 94
[2020-04-18 10:31] LABS: Alanine Aminotransferase 48 U/L (12-78); Albumin Level 2.9 g/dl (3.5-5.0); Albumin/Globulin Ratio 0.6 (1.1-1.8); Alkaline Phosphatase 317 U/L (38-126); Aspartate Amino Transferase 61 U/L (17-59); Bilirubin,Total 0.6 mg/dl (0.2-1.3); Blood Urea Nitrogen 17 mg/dl (9-20); Carbon Dioxide 25 mmol/L (22.0-30.0); Creatinine Clearance Estimated 69 mL/min (50-200); Estimated Glomerular Filt Rate 69 ml/min (>60); GFR (African American) 83 ML/MIN (>60); Total Protein,Serum 7.9 g/dl (6.3-8.2)
[2020-04-18 10:32] LABS: Glucose 139 mg/dl (74-100)
[2020-04-18 10:45] LABS: Lymphocytes % 5 % (10-50); MANUAL DIFFERENTIAL MANUAL DIFFERENTIAL (MANUAL DIFF); Monocytes % 14 % (2-9); Neutrophils % 81 % (42-76); Platelet Estimate Marked Increase; RBC Morphology Normal; Total Cells Counted 100
[2020-04-18 10:59] VITALS: BP 180/99
[2020-04-18 11:00] VITALS: BP 123/80; PULSE 80; RESP 18; TEMP 36.8; O2SAT 93
--- NOTE | 2020-04-18 11:11 | PC.NURSE ---
speaking to Dr Redmond
[2020-04-18 12:54] VITALS: BP 123/80; PULSE 80; RESP 18; TEMP 36.8; O2SAT 93
[2020-04-19 15:14] LABS: Covid-19 Nasal PCR Sendout Lex NOT DETECTED
== END 2020-04-18 13:34 | disposition home or self-care (01) ==
PROVIDERS: Emergency Provider Emergency Medicine; PCP Family Medicine
DX: J18.9 Pneumonia, unspecified organism (principal); C18.9 Malignant neoplasm of colon, unspecified; D50.9 Iron deficiency anemia, unspecified; R16.0 Hepatomegaly, not elsewhere classified; I25.10 Atherosclerotic heart disease of native coronary artery without angina pectoris; I10 Essential (primary) hypertension; E78.5 Hyperlipidemia, unspecified
CPT/HCPCS: 71046; 80053; 85007; 85025; 96365; 96375; 99284; J1956; J2405; U0004

== ENCOUNTER → 2020-04-22 10:16 | Outpatient (CLI) | payer OTHER, SELFPAY ==
--- NOTE | 2020-04-22 10:20 | US_ITS ---
PROCEDURE: US CHEST CLINICAL INDICATION: PLEURAL EFFUSION COMPARISON: No exams were available for comparison FINDINGS: Patient was scheduled for ultrasound-guided thoracentesis. There however was only a small amount of fluid. There was collapsed the the lung noted and there is moderately elevated right hemidiaphragm which likely accounts for most of the opacity in the right lower hemithorax. Complex cystic liver mass also noted as seen on previous CT scan. Therapeutic thoracentesis was not performed due to the small volume of fluid IMPRESSION: Small right effusion with collapse right lower lobe and elevated right hemidiaphragm with large cystic hepatic mass Dictated by: Flynn Richard MD 04/22/2020 13:02 Electronically signed by Flynn Richard MD in [facility] 04/22/2020 13:02
== END ==
PROVIDERS: PCP Family Medicine; Visit Provider Family Medicine
DX: J90 Pleural effusion, not elsewhere classified (principal)
CPT/HCPCS: 76604

== ENCOUNTER 2020-04-26 19:48 | Emergency (ER) | payer OTHER, SELFPAY ==
[2020-04-26] VITALS (7 sets, daily range): BP systolic 107–131; BP diastolic 64–82; PULSE 63–122; RESP 16; TEMP 36.4–36.7; O2SAT 94–100; BMI 21.9
--- NOTE | 2020-04-26 19:55 | XR_ITS ---
PROCEDURE: XR CHEST PORTABLE CLINICAL HISTORY: CP Chest pain and shortness of breath COMPARISON: XR CHEST 2V from 12/22/2019 XR CHEST 2V from 03/31/2020 CT ANGIO CHEST from 03/31/2020 XR CHEST 2V from 04/18/2020 CT ANGIO CHEST from 04/26/2020 FINDINGS: The right hemidiaphragm is elevated as before. Normal heart size. There is right basilar atelectasis with small right effusion. Left lung is clear. No acute bony findings. IMPRESSION: Elevated right hemidiaphragm with small right effusion Dictated by: Flynn Richard MD 04/27/2020 07:13 Electronically signed by Flynn Richard MD in [facility] 04/27/2020 07:13
--- NOTE | 2020-04-26 19:55 | ECG_ITS ---
APPROVED REPORT Exam: Resting ECG HR:115 bpm ECG Measurements Heart Rate 115 AXES MA 154 P 24 QRSd 84 QRS 9 QT 310 T 82 QTc 428 <Conclusion> Sinus tachycardia Nonspecific T wave abnormality Abnormal ECG Electronically signed by : Cristopher Barnard, 04/29/2020 17:13:52
--- NOTE | 2020-04-26 20:03 | [facility]H.EDCP ---
ED Disposition Clinical Impression: Pleural effusion, Thrombocytosis, Renal insufficiency Disposition: Home, Self-Care Condition on Discharge: Fair Instructions: DI for Chest Pain Additional Instructions: call pcp wednesday for follow up Prescriptions: Hydrocod/Acet 5/325 mg [[place] 5/325mg tablet] 1 tab PO Q6HP PRN #15 tab PRN Reason: Moderate To Severe Pain Prescription Printed Referrals: Cristopher Redmond MD [Primary Care Provider] - - Critical Care Critical Care Time: No Attestation: On 04/26/20, the high probability of a clinically significant, sudden or life threatening deterioration of the following system(s) required my full and direct attention, intervention and personal management. The time I documented below is in addition to time spent performing reported procedures but includes the following listed in this critical care notation. Medical Decision Making - Medical Records Medical records reviewed: Yes: I reviewed the patient's medical records. - Joshua Inquiry Pt receiving controlled substance: No Vital Signs: 04/26/20 19:49 04/26/20 20:30 04/26/20 21:00 Temperature 97.6 F Temperature Source Oral Pulse Rate [Right Brachial] 70 119 H 122 H Respiratory Rate 16 Blood Pressure [Right Arm] 117/74 109/75 L 117/79 Blood Pressure Mean [Right Arm] 88 86 91 Blood Pressure Source [Right Arm] Automatic Cuff Automatic Cuff Automatic Cuff Blood Pressure Position [Right Arm] Sitting Supine Supine 02 Sat by Pulse Oximetry 96 98 100 Oxygen Delivery Method Room Air Room Air Room Air 04/26/20 21:30 04/26/20 22:00 Temperature Temperature Source Pulse Rate [Right Brachial] 121 H 118 H Respiratory Rate Blood Pressure [Right Arm] 131/82 122/74 Blood Pressure Mean [Right Arm] 98 90 Blood Pressure Source [Right Arm] Automatic Cuff Automatic Cuff Blood Pressure Position [Right Arm] Supine Supine 02 Sat by Pulse Oximetry 96 94 L Oxygen Delivery Method Room Air Room Air - Lab Data Lab results reviewed: Yes: I reviewed the patient's lab results. Lab Results 04/26/20 19:54: WBC 11.3 H, RBC 4.64, Hgb 11.1 L, Hct 36.0 L, MCV 77.5 L, MCH 24.0 L, MCHC 31.0 L, RDW 23.9 H, Plt Count 1072 H*, MPV 7.1 L, Neut % (Auto) 82.4 H, Lymph % (Auto) 12.0, [place] % (Auto) 4.9, Eos % (Auto) 0.3, Baso % (Auto) 0.3, Neut # (Auto) 9.3 H, Lymph # (Auto) 1.4, [place] # (Auto) 0.6, Eos # (Auto) 0.0, Baso # (Auto) 0.0 04/26/20 19:54: Sodium 129 L, Potassium 5.0, Chloride 91 L, Carbon Dioxide 29, Anion Gap 14.0, BUN 32 H, Creatinine 1.90 H, Estimated Creat Clear 39, Estimated GFR 37 L, Est GFR ( Amer) 44 L, Glucose 137 H, Calcium 9.6, Troponin I < 0.01 Result diagrams: 04/26/20 19:54 04/26/20 19:54 Orders (Tests/Meds): ED MEDICATIONS Generic Name Dose Route Start Last Admin Trade Name Freq PRN Reason Stop Dose Admin Nitroglycerin 0.4 mg 04/26/20 20:06 04/26/20 20:10 Nitrostat 0.4mg Sl Tablet SL 05/26/20 20:05 0.4 mg Q5MINP PRN Administration Chest Pain Discontinued Medications Generic Name Dose Route Start Last Admin Trade Name Freq PRN Reason Stop Dose Admin Aspirin 324 mg 04/26/20 20:06 04/26/20 20:10 Aspirin 81mg Chewable Tablet PO 04/26/20 20:07 324 mg ONCE ONE Administration ORDERS Category Date Time Status CT Chest w/PE protocol [CT angio chest] Stat Cat Scan 04/26/20 20:05 Taken Chest XR -- portable [XR chest portable] Stat Exams 04/26/20 19:55 Taken Troponin I Q3H Lab 04/26/20 23:00 Ordered Troponin I Q3H Lab 04/27/20 02:00 Ordered - Radiology Data #1 Image(s): Chest Image Reviewed: Yes I reviewed the patient's radiology image Preliminary Findings: Abnormal (rt pleural effusion ) - CT Data CT Scan: Chest Time Received: 22:[address] Reviewed: Yes: I have viewed the radiologist's interpretation Preliminary Findings: Abnormal (see report ) - ECG Data Tracing #1 Arrhythmias present: sinus tach Ischemic changes: non-specific ST-T wave
--- NOTE | 2020-04-26 20:05 | CT_ITS ---
PROCEDURE: CT ANGIO CHEST CLINCIAL INDICATION: chest pain Chest pain and shortness of breath, colon and liver cancer COMPARISON: CT ANGIO CHEST from 03/31/2020 TECHNIQUE: IV Contrast: 50ML OPTIRAY 350 Axial images obtained with sagittal and coronal reformats. All CT scans at the facility use one or more dose reduction, viz: automated exposure control, ma/kV adjustment per patient size (including targeted exams where dose is matched to indication, i.e. head), or iterative reconstruction technique. FINDINGS: HEART AND MEDIASTINAL STRUCTURES: Suboptimal opacification of the pulmonary arteries. No central pulmonary embolus evident. Peripheral pulmonary emboli may not be detected with this technique. There is no evidence of aortic aneurysm or dissection. LUNGS AND PLEURAL SPACES: There is elevation of the right hemidiaphragm due to large liver mass. There is collapse of the right lower lobe with a medium-sized right pleural effusion.. There are mild atelectatic changes in the left lung base. BONY STRUCTURES: No acute bony abnormalities apparent. UPPER ABDOMEN: Hepatomegaly with large lobulated cystic mass of the liver measuring at least 18 x 13 cm previously 13 by 9 cm ADDITIONAL FINDINGS: No other significant abnormalities. IMPRESSION: 1. No central pulmonary embolus. Suboptimal opacification of the peripheral pulmonary arteries 2. Medium-sized right pleural effusion has developed with right lower lobe collapse with elevated right hemidiaphragm due to large hepatic cystic mass which has increased in size from the previous exam 3. Enlarging cystic mass of the liver consistent with neoplasm Dictated by: Flynn Richard MD 04/27/2020 07:27 Electronically signed by Flynn Richard MD in [place] 04/27/2020 07:27
[2020-04-26 20:06] LABS: Basophils % 0.3 % (0.1-2.0); Eosinophils % 0.3 % (0.1-12.0); Hemoglobin 11.1 g/dL (14.1-18.0); Lymphocytes # 1.4 K/mm3 (0.7-4.5); Mean Corpuscular Volume 77.5 fl (80-94); Mean Platelet Volume 7.1 fl (7.4-10.4); Monocytes # 0.6 K/mm3 (0.1-1.0); Monocytes % 4.9 % (1.7-9.3); Neutrophils # 9.3 K/mm3 (1.8-7.8); Neutrophils % 82.4 % (37.0-80.0); Red Blood Count 4.64 M/mm3 (4.60-6.20); Red Cell Distribution Width 23.9 % (11.5-17.5); White Blood Count 11.3 K/mm3 (4.8-10.8)
[2020-04-26 20:11] LABS: Chloride 91 mmol/L (98-107); Sodium 129 mmol/L (136-145)
[2020-04-26 20:12] LABS: Platelet Count 1072 K/mm3 (142-424)
[2020-04-26 20:14] LABS: Blood Urea Nitrogen 32 mg/dl (9-20); Calcium 9.6 mg/dl (8.4-10.2); Carbon Dioxide 29 mmol/L (22.0-30.0); Creatinine Clearance Estimated 39 mL/min (50-200); Estimated Glomerular Filt Rate 37 ml/min (>60); GFR (African American) 44 ML/MIN (>60); Glucose 137 mg/dl (74-100)
--- NOTE | 2020-04-26 20:23 | PC.NURSE ---
MD AT BEDSIDE AT THIS TIME.
[2020-04-26 20:33] LABS: Troponin I < 0.01 ng/ml (0.00-0.034)
== END 2020-04-26 22:40 | disposition home or self-care (01) ==
PROVIDERS: Emergency Provider Emergency Medicine; PCP Family Medicine
DX: J90 Pleural effusion, not elsewhere classified (principal); C22.9 Malignant neoplasm of liver, not specified as primary or secondary; D47.3 Essential (hemorrhagic) thrombocythemia; N28.9 Disorder of kidney and ureter, unspecified; I10 Essential (primary) hypertension; I25.10 Atherosclerotic heart disease of native coronary artery without angina pectoris
CPT/HCPCS: 71045; 71275; 80048; 84484; 85025; 93005; 96365; 99284; Q9967

== ENCOUNTER 2020-04-29 12:22 | Emergency (ER) | payer OTHER, SELFPAY ==
[2020-04-29 12:23] VITALS: BP 136/83; PULSE 115; RESP 17; TEMP 36.7; O2SAT 99; BMI 21.9
[2020-04-29 13:07] VITALS: BMI 21.9
--- NOTE | 2020-04-29 13:08 | CT_ITS ---
PROCEDURE: CT ANGIO CHEST CLINCIAL INDICATION: lung Shortness of air, colon cancer with possible metastatic disease COMPARISON: CT ANGIO CHEST from 04/26/2020 TECHNIQUE: IV Contrast: 70ML OPTIRAY 350 Axial images obtained with sagittal and coronal reformats. All CT scans at the facility use one or more dose reduction, viz: automated exposure control, ma/kV adjustment per patient size (including targeted exams where dose is matched to indication, i.e. head), or iterative reconstruction technique. FINDINGS: HEART AND MEDIASTINAL STRUCTURES: No evidence of pulmonary embolus or aortic aneurysm or dissection LUNGS AND PLEURAL SPACES: There is a large right pleural effusion which has increased in size from the previous study and is causing some mediastinal shift toward the left with compressive atelectasis of the right upper lobe. There is right lower lobe collapse and right middle lobe collapse. BONY STRUCTURES: No acute bony abnormalities apparent. UPPER ABDOMEN: Large cystic hepatic mass once again noted multilocular in nature measuring up to 19 cm AP and 13 cm transverse with elevated right hemidiaphragm. ADDITIONAL FINDINGS: No other significant abnormalities. IMPRESSION: Large right pleural effusion which is increased in size from the previous exam with right middle lobe and right lower lobe collapse and mild mediastinal shift toward the left No change in the large multilocular cystic lesion of the liver with elevated right hemidiaphragm Dictated by: Flynn Richard MD 04/29/2020 14:30 Electronically signed by Flynn Richard MD in [facility] 04/29/2020 14:30
[2020-04-29 13:24] LABS: Basophils % 0.2 % (0.1-2.0); Eosinophils % 0.3 % (0.1-12.0); Hematocrit 33.7 % (42.0-52.0); Hemoglobin 10.4 g/dL (14.1-18.0); Lymphocytes # 0.8 K/mm3 (0.7-4.5); Lymphocytes % 6.9 % (10-50); Mean Corpuscular HGB Conc 30.9 g/dL (31.8-35.4); Mean Corpuscular Volume 77.8 fl (80-94); Mean Platelet Volume 8.2 fl (7.4-10.4); Monocytes # 0.5 K/mm3 (0.1-1.0); Monocytes % 4.2 % (1.7-9.3); Neutrophils # 9.6 K/mm3 (1.8-7.8); Neutrophils % 88.3 % (37.0-80.0); Red Blood Count 4.34 M/mm3 (4.60-6.20); Red Cell Distribution Width 23.8 % (11.5-17.5); White Blood Count 10.8 K/mm3 (4.8-10.8)
[2020-04-29 13:26] LABS: Lipase 132 U/L (23-300)
[2020-04-29 13:27] LABS: Alanine Aminotransferase 37 U/L (12-78); Albumin Level 3.5 g/dl (3.5-5.0); Albumin/Globulin Ratio 0.6 (1.1-1.8); Alkaline Phosphatase 314 U/L (38-126); Amylase 100 U/L (30-110); Anion Gap 17.7 mEq/L (5-15); Aspartate Amino Transferase 83 U/L (17-59); Bilirubin,Total 0.7 mg/dl (0.2-1.3); Blood Urea Nitrogen 25 mg/dl (9-20); Calcium 9.6 mg/dl (8.4-10.2); Carbon Dioxide 25 mmol/L (22.0-30.0); Chloride 91 mmol/L (98-107); Creatinine Clearance Estimated 52 mL/min (50-200); Estimated Glomerular Filt Rate 52 ml/min (>60); GFR (African American) 63 ML/MIN (>60); Globulin 5.9 g/dL (1.3-3.2); Glucose 184 mg/dl (74-100); Potassium 5.7 mmoL/L (3.5-5.1); Sodium 128 mmol/L (136-145); Total Protein,Serum 9.4 g/dl (6.3-8.2)
[2020-04-29 13:28] LABS: Platelet Count 1107 K/mm3 (142-424)
[2020-04-29 13:30] LABS: MANUAL DIFFERENTIAL MANUAL DIFFERENTIAL (MANUAL DIFF)
[2020-04-29 13:37] LABS: Anisocytosis 2+; Hypochromasia 1+; Lymphocytes % 8 % (10-50); Microcytosis 2+; Monocytes % 4 % (2-9); Neutrophils % 88 % (42-76); Total Cells Counted 100
[2020-04-29 13:38] LABS: Platelet Estimate Marked Increase
--- NOTE | 2020-04-29 15:33 | HMH.EDGENADL ---
ED Disposition Clinical Impression: Pleural effusion associated with hepatic disorder, Metastatic cancer, Hepatocellular carcinoma, Acute anxiety, Intractable abdominal pain Disposition: Home, Self-Care Condition on Discharge: Good Additional Instructions: Please follow-up with with interventional radiology here at [facility] with Dr. Richard at 8:30 AM on Wednesday for a therapeutic thoracentesis. Prescriptions: Prochlorperazine Maleate [Compazine 10mg tablet] 10 mg PO TID 10 Days #30 tab Prescription Printed Oxycodone HCl/Acetaminophen [Percocet 10-325 mg Tablet] 1 tab PO Q4H PRN 3 Days #18 tab PRN Reason: Breakthru Moderate Pain Prescription Printed diazePAM [Valium 10mg tablet] 10 mg PO TID 4 Days #12 tab Prescription Printed Tizanidine HCl [Zanaflex 4mg tablet] 4 mg PO TID 10 Days #30 tab Prescription Printed Referrals: Cristopher Redmond MD [Primary Care Provider] - - Critical Care Critical Care Time: No Attestation: On 04/29/20, the high probability of a clinically significant, sudden or life threatening deterioration of the following system(s) required my full and direct attention, intervention and personal management. The time I documented below is in addition to time spent performing reported procedures but includes the following listed in this critical care notation. Medical Decision Making - Medical Records Medical records reviewed: Yes: I reviewed the patient's medical records. - Joshua Inquiry Pt receiving controlled substance: No Vital Signs: 04/29/20 12:23 Temperature 98.1 F Temperature Source Oral Pulse Rate [Right] 115 H Respiratory Rate 17 Blood Pressure [Right Arm] 136/83 Blood Pressure Mean [Right Arm] 100 02 Sat by Pulse Oximetry 99 - Lab Data Lab results reviewed: Yes: I reviewed the patient's lab results. Lab Results 04/29/20 12:46: WBC 10.8, RBC 4.34 L, Hgb 10.4 L, Hct 33.7 L, MCV 77.8 L, MCH 24.0 L, MCHC 30.9 L, RDW 23.8 H, Plt Count 1107 H*, MPV 8.2, Neut % (Auto) 88.3 H, Lymph % (Auto) 6.9 L, [place] % (Auto) 4.2, Eos % (Auto) 0.3, Baso % (Auto) 0.2, Neut # (Auto) 9.6 H, Lymph # (Auto) 0.8, [place] # (Auto) 0.5, Eos # (Auto) 0.0, Baso # (Auto) 0.0, Total Counted 100, Neutrophils % (Manual) 88 H, Lymphocytes % (Manual) 8 L, Monocytes % (Manual) 4, Platelet Estimate Marked increase, Hypochromasia 1+, Anisocytosis 2+, Microcytosis 2+ 04/29/20 12:46: Sodium 128 L, Potassium 5.7 H, Chloride 91 L, Carbon Dioxide 25, Anion Gap 17.7 H, BUN 25 H, Creatinine 1.40 H D, Estimated Creat Clear 52, Estimated GFR 52 L, Est GFR ( Amer) 63 D, Glucose 184 H, Calcium 9.6, Total Bilirubin 0.7, AST 83 H, ALT 37, Alkaline Phosphatase 314 H, Total Protein 9.4 H, Albumin 3.5, Globulin 5.9 H, Albumin/Globulin Ratio 0.6 L, Amylase 100 04/29/20 12:46: Lipase 132 Result diagrams: 04/29/20 12:46 04/29/20 12:46 Orders (Tests/Meds): ED MEDICATIONS Discontinued Medications Generic Name Dose Route Start Last Admin Trade Name Freq PRN Reason Stop Dose Admin Hydromorphone HCl 1 mg 04/29/20 15:00 04/29/20 15:06 Dilaudid 2mg/Ml Syringe IV 04/29/20 15:01 1 mg ONCE ONE Administration Hydromorphone HCl 1 mg 04/29/20 15:39 Dilaudid 2mg/Ml Syringe IV 04/29/20 15:40 ONCE ONE Sodium Chloride 1,000 mls @ 999 mls/hr 04/29/20 13:15 04/29/20 13:18 Sod Chlor 0.9% 1000ml Bag IV 04/29/20 14:15 999 mls/hr .Q1H1M ARON Administration Ioversol 70 ml 04/29/20 14:04 04/29/20 14:06 Rad-Optiray 350 100ml Vial IV 04/29/20 14:05 70 ml ONCE ONE Administration Protocol Morphine Sulfate 4 mg 04/29/20 13:08 04/29/20 13:18 Morphine 4mg/Ml Syringe IV 04/29/20 13:09 4 mg ONCE ONE Administration Ondansetron HCl 4 mg 04/29/20 13:08 04/29/20 13:18 Zofran 4mg/2ml Vial IV 04/29/20 13:09 4 mg ONCE ONE Administration Sodium Chloride 40 ml 04/29/20 14:06 04/29/20 14:06 Rad-Ns 50ml Vial IV 04/29/20 14:07 40 ml ONCE ONE Administrat
--- NOTE | 2020-04-29 16:03 | ECG_ITS ---
APPROVED REPORT Exam: Resting ECG HR:96 bpm ECG Measurements Heart Rate 96 AXES NJ 150 P 28 QRSd 84 QRS 0 QT 336 T 72 QTc 424 <Conclusion> Normal sinus rhythm Minimal voltage criteria for LVH, may be normal variant NDST-T Changes Abnormal ECG Electronically signed by : Raz Elias, 04/30/2020 18:00:54
[2020-04-29 16:29] VITALS: BP 121/71; PULSE 69; RESP 16; TEMP 37; O2SAT 96
== END 2020-04-29 16:45 | disposition home or self-care (01) ==
PROVIDERS: Emergency Provider Family Medicine; PCP Family Medicine
DX: J90 Pleural effusion, not elsewhere classified (principal); C22.0 Liver cell carcinoma; C18.9 Malignant neoplasm of colon, unspecified; F41.0 Panic disorder [episodic paroxysmal anxiety]; I25.10 Atherosclerotic heart disease of native coronary artery without angina pectoris; I10 Essential (primary) hypertension; E78.5 Hyperlipidemia, unspecified; Z79.899 Other long term (current) drug therapy
CPT/HCPCS: 71275; 80053; 82150; 83690; 85007; 85025; 93005; 96365; 96374; 96375; 96376; 99283; 99284; J2405; Q9967

== ENCOUNTER → 2020-05-01 08:18 | Outpatient (CLI) | payer OTHER, SELFPAY ==
--- NOTE | 2020-05-01 | XR_ITS ---
PROCEDURE: XR CHEST AP CLINICAL HISTORY: Follow-up thoracentesis, chest pain, cancer COMPARISON: XR CHEST 2V from 03/31/2020 XR CHEST 2V from 04/18/2020 XR CHEST PORTABLE from 04/26/2020 CT ANGIO CHEST from 04/29/2020 FINDINGS: There remains a large right-sided pleural effusion. There is no evidence of pneumothorax. Atelectatic changes are present in the right lower lobe with elevated right hemidiaphragm. The left lung is clear. No acute bony abnormalities. IMPRESSION: Persistent large right pleural effusion with right lower lobe atelectatic changes. No evidence of pneumothorax Dictated by: Flynn Richard MD 05/01/2020 09:50 Electronically signed by Flynn Richard MD in [facility] 05/01/2020 09:50
--- NOTE | 2020-05-01 08:27 | US_ITS ---
PROCEDURE: US THORACENTESIS CLINICAL INDICATION: PLEURAL EFFUSION R COMPARISON: CT ANGIO CHEST from 04/29/2020 TECHNIQUE: Informed consent was obtain prior to procedure. After appropriate Time out, under aseptic conditions and local anesthesia with 1% buffered lidocaine using sonographic guidance a 6 Khmer [id number]-H-[id number] catheter was inserted into the largest pocket of fluid localized in the right lower quadrant. Approximately 1000 mL volume of cloudy fluid was drained. Specimen was sent to the lab. After approximately 900 mL of fluid was drained, the patient began complaining pain. Ultrasound performed with the catheter in place showed appropriate catheter localization. Patient pain persisted and the patient began hyperventilating. The procedure was then discontinued and the catheter was removed from the pleural space. Approximately 1000 cc of cloudy milky colored fluid was drained. Post procedure radiograph showed no evidence of pneumothorax. There was a moderate amount of fluid remaining with elevated right hemidiaphragm and right basilar atelectasis. Patient was then taken to outpatient observation rib pain continued with O2 saturation in the low 90 percent. The patient was also tachycardia at one hundred forty BPM. There was decided with Dr. Redmond to send the patient on to the ER to be evaluated. FINDINGS: Large volume right-sided pleural effusion noted on the pre thoracentesis ultrasound. The fusion did contain multiple septations. IMPRESSION: Successful sonographic guided right-sided thoracentesis. There is no evidence of pneumothorax following the procedure. Patient did complain of pain and was tachycardic and was evaluated by the ER. Dictated by: Flynn Richard MD 05/01/2020 16:44 Electronically signed by Flynn Richard MD in [facility] 05/01/2020 16:44
[2020-05-01 09:56] VITALS: RESP 24
== END ==
PROVIDERS: PCP Family Medicine; Visit Provider Family Medicine
DX: J90 Pleural effusion, not elsewhere classified (principal)
CPT/HCPCS: 32555; 71045

== ENCOUNTER 2020-05-01 10:10 | Inpatient (IN) | payer OTHER, SELFPAY ==
[2020-05-01] VITALS (20 sets, daily range): BP systolic 91–145; BP diastolic 47–85; PULSE 92–170; RESP 18–42; TEMP 36.4–36.6; O2SAT 90–99; BMI 21.9; BMI 22.0
--- NOTE | 2020-05-01 | ECG_ITS ---
APPROVED REPORT Exam: Resting ECG HR:129 bpm ECG Measurements Heart Rate 129 AXES TX 142 P -12 QRSd 84 QRS -20 QT 286 T 107 QTc 418 <Conclusion> Sinus tachycardia Left ventricular hypertrophy with repolarization abnormality,Consider Inferior infarct-old Abnormal ECG Electronically signed by : Raz Elias, 05/01/2020 17:40:08
--- NOTE | 2020-05-01 10:22 | XR_ITS ---
PROCEDURE: XR CHEST PORTABLE CLINICAL HISTORY: low oxygen, follow-up thoracentesis COMPARISON: XR CHEST 2V from 04/18/2020 XR CHEST PORTABLE from 04/26/2020 CT ANGIO CHEST from 04/29/2020 XR CHEST AP from 05/01/2020 FINDINGS: There has been no interval change in the moderate to large size right effusion with elevated right hemidiaphragm and right basilar atelectasis. No evidence of pneumothorax. Left lung remains clear. IMPRESSION: No change right-sided effusion with elevated hemidiaphragm and no evidence of pneumothorax Dictated by: Flynn Richard MD 05/01/2020 11:07 Electronically signed by Flynn Richard MD in [facility] 05/01/2020 11:07
--- NOTE | 2020-05-01 10:23 | PC.NURSE ---
pt brought down to ER from post op on a simple mask at 10L per min pt SaO2 99%, pt placed on NC at 5L per min, SaO2 95% at this time on NC. will continue to monitor, ER aware
--- NOTE | 2020-05-01 10:30 | PC.NURSE ---
notified ER MD of swelling noted around thorcentesis site.
[2020-05-01 10:33] LABS: Basophils % 0.1 % (0.1-2.0); Eosinophils # 0.1 K/mm3 (0.0-0.4); Eosinophils % 0.3 % (0.1-12.0); Hematocrit 31.4 % (42.0-52.0); Hemoglobin 9.8 g/dL (14.1-18.0); Lymphocytes # 1.6 K/mm3 (0.7-4.5); Lymphocytes % 6.7 % (10-50); Mean Corpuscular HGB Conc 31.2 g/dL (31.8-35.4); Mean Corpuscular Hemoglobin 24.5 pg (27.0-31.2); Mean Corpuscular Volume 78.5 fl (80-94); Mean Platelet Volume 7.5 fl (7.4-10.4); Monocytes # 0.9 K/mm3 (0.1-1.0); Monocytes % 3.5 % (1.7-9.3); Neutrophils # 21.8 K/mm3 (1.8-7.8); Neutrophils % 89.4 % (37.0-80.0); Red Cell Distribution Width 24.2 % (11.5-17.5); White Blood Count 24.3 K/mm3 (4.8-10.8)
--- NOTE | 2020-05-01 10:35 | CA_ITS ---
APPROVED REPORT EXAM: Comprehensive 2D, Doppler, and color-flow Echocardiogram Administrative Support Assistant: Vale Murillo, RT(R) Ht: 5 ft 7 in Wt: 138lbs BSA: 1.73 BP: 106/64 mmHg Indications: COPD, HTN, hyperlipidemia, family hx of HD, Patient had a thoracentesis this morning after which he became very short of breath and had a elevated heart rate. 2D Dimensions LVOT 2.01 cm (M/F) 1.5-2.5 M-Mode Dimensions RVDd 2.71 cm (0.9-2.6) LVDd 3.62 cm (3.5-5.7) LVDs 2.28 cm (3.5-5.7) IVSd 0.74 cm (0.6-1.1) PWd 0.87 cm (0.6-1.1) EF (Teich) 67.90% FS 37.00% EDV (Teich) 55.20 mL ESV (Teich) 17.70 mL LV Diastology E/A Ratio 0.84 Mitral Valve MV A Velocity 61.00 (40-130 cm/s) Left Ventricle Left atrium is mildly enlarged, left ventricle is normal size, mild concentric left ventricular hypertrophy, septum is sigmoid configuration, there is hyperdynamic left ventricular systolic function, visually estimated ejection fraction over 65% with no regional wall motion abnormality. Doppler evidence of impaired LV relaxation seen. Right Ventricle Right atrium right ventricle mildly enlarged with normal contractility. Aortic Valve Aortic valve is minimally thickened and fibrosed, there is no aortic stenosis or aortic insufficiency. Mitral Valve Mitral valve leaflets are minimally thickened, there is mild mitral regurgitation. Tricuspid Valve Tricuspid valve is grossly normal, there is mild tricuspid regurgitation, tricuspid regurgitation jet velocity is inadequate for calculation of the right ventricular systolic pressure. Pulmonic Valve Pulmonic valve is poorly visualized. Great Vessels Aortic root is normal size. Pericardium No significant pericardial effusion noted. Conclusion 1. Mildly enlarged left atrium, normal left ventricular size, mild concentric left ventricular hypertrophy, hyperdynamic left ventricular systolic function, visually estimated ejection fraction was 65% with no regional wall motion abnormality, Doppler evidence of impaired LV relaxation seen 2. Mildly enlarged right ventricle with normal contractility. 3. Mild mitral and tricuspid regurgitation. 4. No significant pericardial effusion noted. Electronically signed by : Mikie Hernandez, 05/02/2020 10:14:14
[2020-05-01 10:38] LABS: Platelet Count 1052 K/mm3 (142-424)
--- NOTE | 2020-05-01 10:38 | PC.NURSE ---
notified [facility] lab of echo order on pt
[2020-05-01 10:39] LABS: MANUAL DIFFERENTIAL MANUAL DIFFERENTIAL (MANUAL DIFF)
--- NOTE | 2020-05-01 10:39 | PC.NURSE ---
ER notified of critical PLT count and WBC as called per lab at this time
[2020-05-01 10:43] LABS: Chloride 95 mmol/L (98-107); Potassium 5.2 mmoL/L (3.5-5.1); Sodium 128 mmol/L (136-145)
--- NOTE | 2020-05-01 10:43 | PC.NURSE ---
Pt reports his breathing is easier, he does not feel as SOA and is his pain has improved at this time. ER MD notified.
--- NOTE | 2020-05-01 10:43 | HMH.EDSOB ---
ED Disposition Clinical Impression: SIRS (systemic inflammatory response syndrome), Recurrent right pleural effusion, ROSAMARIA (acute kidney injury), Thrombocytosis Anemia Qualifiers: Anemia type: unspecified type Qualified Code(s): D64.9 - Anemia, unspecified Disposition: Admitted as Observation Condition on Discharge: Fair Referrals: Provider,Referral, [Primary Care Provider] - - Critical Care Critical Care Time: No Attestation: On 05/01/20, the high probability of a clinically significant, sudden or life threatening deterioration of the following system(s) required my full and direct attention, intervention and personal management. The time I documented below is in addition to time spent performing reported procedures but includes the following listed in this critical care notation. Medical Decision Making - Medical Records Medical records reviewed: Yes: I reviewed the patient's medical records. - Joshua Inquiry Pt receiving controlled substance: No Vital Signs: 05/01/20 10:20 05/01/20 10:45 05/01/20 11:11 Temperature 97.8 F Temperature Source Oral Pulse Rate [Apical] 134 H 129 H 117 H Respiratory Rate 22 18 20 Blood Pressure [Left Arm] 106/64 L 105/47 L 100/52 L Blood Pressure Mean [Left Arm] 78 66 68 Blood Pressure Source [Left Arm] Automatic Cuff Automatic Cuff Automatic Cuff Blood Pressure Position [Left Arm] Sitting Supine Sitting 02 Sat by Pulse Oximetry 99 93 L 96 Oxygen Delivery Method Simple Mask Nasal Cannula Nasal Cannula Oxygen Flow Rate (LPM) 10 5 5 05/01/20 11:44 05/01/20 13:07 Temperature Temperature Source Pulse Rate [Apical] 114 H 102 H Respiratory Rate 20 18 Blood Pressure [Left Arm] 104/57 L 103/66 L Blood Pressure Mean [Left Arm] 72 78 Blood Pressure Source [Left Arm] Automatic Cuff Automatic Cuff Blood Pressure Position [Left Arm] Sitting Sitting 02 Sat by Pulse Oximetry 95 94 L Oxygen Delivery Method Nasal Cannula Nasal Cannula Oxygen Flow Rate (LPM) 3 3 - Lab Data Lab results reviewed: Yes: I reviewed the patient's lab results. Lab Results 05/01/20 10:23: WBC 24.3 H* D, RBC 4.00 L, Hgb 9.8 L, Hct 31.4 L, MCV 78.5 L, MCH 24.5 L, MCHC 31.2 L, RDW 24.2 H, Plt Count 1052 H*, MPV 7.5, Neut % (Auto) 89.4 H, Lymph % (Auto) 6.7 L, [place] % (Auto) 3.5, Eos % (Auto) 0.3, Baso % (Auto) 0.1, Neut # (Auto) 21.8 H, Lymph # (Auto) 1.6, [place] # (Auto) 0.9, Eos # (Auto) 0.1, Baso # (Auto) 0.0, Total Counted 100, Neutrophils % (Manual) 88 H, Lymphocytes % (Manual) 8 L, Monocytes % (Manual) 2, Basophils % (Manual) 2.0 H, Platelet Estimate Normal, RBC Morphology Normal, Hypochromasia 1+, Anisocytosis 1+, Microcytosis 1+ 05/01/20 10:23: Sodium 128 L, Potassium 5.2 H, Chloride 95 L, Carbon Dioxide 22, Anion Gap 11.0, BUN 50 H D, Creatinine 2.20 H D, Estimated Creat Clear 33, Estimated GFR 31 L, Est GFR ( Amer) 38 L D, Glucose 160 H, Calcium 9.3, Total Bilirubin 0.4, Direct Bilirubin 0.2, Conjugated Bilirubin 0.0, Indirect Bilirubin 0.2, Unconjugated Bilirubin 0.2, AST 32 D, ALT 22 D, Alkaline Phosphatase 209 H, Troponin I < 0.01, Total Protein 7.6, Albumin 2.8 L 05/01/20 12:20: Lactate 1.3 Result diagrams: 05/01/20 10:23 05/01/20 10:23 Orders (Tests/Meds): ED MEDICATIONS Generic Name Dose Route Start Last Admin Trade Name Dimitriosq PRN Reason Stop Dose Admin Sodium Chloride 1,000 mls @ 100 mls/hr 05/01/20 10:45 05/01/20 10:38 Sod Chlor 0.9% 1000ml Bag IV 05/31/20 10:44 100 mls/hr .Q10H ARON Administration Ceftriaxone Sodium 1 gm/ 50 mls @ 100 mls/hr 05/01/20 12:45 05/01/20 12:45 Sodium Chloride IV 05/15/20 12:44 100 mls/hr Q24H ARON Administration Protocol Sodium Chloride 10 ml 05/01/20 11:00 Sodium Chloride 0.9% 10ml Vial IV 05/31/20 10:59 NEEDED PRN to Dilute Lorazepam inj Discontinued Medications Generic Name Dose Route Start Last Admin Trade Name Freq PRN Reason Stop Dose Admin Lorazepam 1 mg 05/01/20 11:00 05/01/20 1
[2020-05-01 10:45] LABS: Blood Urea Nitrogen 50 mg/dl (9-20); Creatinine Clearance Estimated 33 mL/min (50-200); Estimated Glomerular Filt Rate 31 ml/min (>60); GFR (African American) 38 ML/MIN (>60); Lymphocytes % 8 % (10-50); Monocytes % 2 % (2-9); Neutrophils % 88 % (42-76); Total Cells Counted 100
[2020-05-01 10:46] LABS: Alanine Aminotransferase 22 U/L (12-78); Albumin Level 2.8 g/dl (3.5-5.0); Alkaline Phosphatase 209 U/L (38-126); Aspartate Amino Transferase 32 U/L (17-59); Bilirubin,Direct 0.2 mg/dl (0.0-0.4); Bilirubin,Indirect 0.2 mg/dL (0.0-0.9); Bilirubin,Total 0.4 mg/dl (0.2-1.3); Bilirubin,Unconjugated 0.2 mg/dL (0.0-1.1); Calcium 9.3 mg/dl (8.4-10.2); Carbon Dioxide 22 mmol/L (22.0-30.0); Glucose 160 mg/dl (74-100); Total Protein,Serum 7.6 g/dl (6.3-8.2)
[2020-05-01 10:47] LABS: Hypochromasia 1+; Microcytosis 1+
[2020-05-01 10:48] LABS: Anisocytosis 1+; Platelet Estimate Normal; RBC Morphology Normal
--- NOTE | 2020-05-01 10:55 | PC.NURSE ---
DOC WADE speaking with Dr. Richard
--- NOTE | 2020-05-01 11:01 | PC.NURSE ---
ER MD gave verbal orders for medications on pt at this time
[2020-05-01 11:09] LABS: Troponin I < 0.01 ng/ml (0.00-0.034)
--- NOTE | 2020-05-01 11:11 | PC.NURSE ---
[facility] lab staff at for echo
--- NOTE | 2020-05-01 11:42 | PC.NURSE ---
Addendum entered by Bee Grant, POLO 05/01/20 11:43: per ER request to try and wean pt from oxygen Original Note: pt oxygen decreased to 3L per min per NC at this time
--- NOTE | 2020-05-01 11:51 | PC.NURSE ---
notified lab of new orders on pt, asked them to draw blood on pt, spoke with sylwia
[2020-05-01 12:36] LABS: Lactic Acid 1.3 mmol/L (0.7-2.1)
--- NOTE | 2020-05-01 12:37 | PC.NURSE ---
DOC WADE speaking with Dr Redmond
--- NOTE | 2020-05-01 13:03 | PC.NURSE ---
lab at for covid swab
--- NOTE | 2020-05-01 13:05 | PC.NURSE ---
notified house player of admission, we are currently waiting on in house rapid covid swab. House stated to notify her when pt swab is resulted and she will give a room assignment.
[2020-05-01 13:11] LABS: Adenovirus,PCR Not Detected (NotDetected); Bordetella Pertussis Not Detected (NotDetected); Chlamydophila Pneumoniae, PCR Not Detected (NotDetected); Coronavirus 19, PCR Not Detected (NotDetected); Coronavirus 229E Not Detected (NotDetected); Coronavirus NL63 Not Detected (NotDetected); Coronavirus OC43 Not Detected (NotDetected); Coronovirus HKU1,PCR Not Detected (NotDetected); Human Metapneumovirus Not Detected (NotDetected); Influenza A, PCR Not Detected (NotDetected); Influenza AH1, 2009 Not Detected (NotDetected); Influenza AH1, PCR Not Detected (NotDetected); Influenza AH3,PCR Not Detected (NotDetected); Influenza B, PCR Not Detected (NotDetected); Mycoplasma Pneumoniae, PCR Not Detected (NotDected); Parainfluenza 1, PCR Not Detected (NotDetected); Parainfluenza 2, PCR Not Detected (NotDetected); Parainfluenza 3, PCR Not Detected (NotDetected); Parainfluenza 4, PCR Not Detected (NotDetected); Respiratory Syncytial Virus Not Detected (NotDetected); Rhinovirus/Enterovirus Not Detected (NotDetected)
--- NOTE | 2020-05-01 13:53 | PC.NURSE ---
dr. orourke at [facility]
--- NOTE | 2020-05-01 14:23 | PC.NURSE ---
called lab to see how much longer the covid test would be on pt. lab advided 5 to [address] peterson
--- NOTE | 2020-05-01 14:51 | P.CONPHA_ITS ---
[facility] Pharmacy VTE Monitoring - Patient Demographics Admission date: 05/01/20 Report Date: 05/01/20 Time: 14:51 Allergies/Adverse Reactions: Patient Allergies No Known Allergies Allergy (Verified 04/12/20 12:45) Height: 1.7 m Weight: 63.503 kg Patient Problems: Current Active Problems Anemia (Acute) Recurrent right pleural effusion (Acute) Thrombocytosis (Acute) SIRS (systemic inflammatory response syndrome) (Acute) ROSAMARIA (acute kidney injury) (Acute) - VTE Risk Labs: VTE Related Lab Results Hgb 9.8 g/dL (14.1-18.0) L 05/01/20 10:23 Hct 31.4 % (42.0-52.0) L 05/01/20 10:23 Plt Count 1052 K/mm3 (142-424) H* 05/01/20 10:23 BUN 50 mg/dl (9-20) H D 05/01/20 10:23 Creatinine 2.20 mg/dl (0.66-1.25) H D 05/01/20 10:23 Estimated Creat Clear 33 mL/min (50-200) 05/01/20 10:23 - Prophylaxis VTE Prophylaxis Ordered?: Yes Types of VTE Prophylaxis: TEDS Knee High Location of Applied Device: Bilateral Lower Extremeties - VTE Diagnosis Confirmed Treatment or plan recommended: Continue Current Treatment
[2020-05-01 15:00] LABS: Troponin I < 0.01 ng/ml (0.00-0.034)
--- NOTE | 2020-05-01 15:06 | PC.NURSE ---
report called to robles garcia rn
--- NOTE | 2020-05-01 15:20 | HMH.PHAINT ---
MEDICATION RECONCILIATION COMPLETED USING EXTERNAL FILL HISTORY AND DISCHARGE NOTE FROM 04/15/2020
--- NOTE | 2020-05-01 15:35 | PC.NURSE ---
contacted second floor to check on status of transport for pt, spoke with inside steward/stewardess, stated she will check on staff transporting pt to assigned room
--- NOTE | 2020-05-01 16:56 | HMH.HP ---
*Admission Date: 05/01/20 *Chief complaint: shortness of breath *History of present illness: 59 year old male underwent US guided thoracentesis as outpatient this morning for a growing right pleural effusion that is thought to be malignant. Approximately 30 minutes after the procedure successfully removed 1000mL the patient developed tachycardia and tachypnea and was transferred to the ER. ER evaluation was significant for elevated WBC of 24,000. This was a significant increase compared to 48 hours prior. Patient's tachypnea responded to IV morphine and lorazepam. Patient denied symptoms of infection such as fever or chills. Patient denies cough. [facility] History I have reviewed the patient's past medical history: Yes Medical History: Reports:: Cancer (Colon with suspected mets to liver(workup still in process as of 05/01/20)), Congestive Heart Failure, Coronary Artery Disease, Hyperlipidemia, Hypertension Denies:: Diabetes Mellitus Type 1, Diabetes Mellitus Type 2, Internal Pacemaker, MRSA, Seizures *Have you ever received a pneumonia vaccine?: Yes *Have you received a flu vaccine this season?: No Other Medical History: Reports: Anemia, Liver Disease, Sinus Problems Comment:: Hearing Loss Other Surgeries: Yes: No Previous Surgery. No: Pacemaker Amputation: No Fractures: No - *Social History Smoking Status: Former smoker Tobacco Type: cigarettes # Packs/Day (cigarettes): 1 Smoking End Date: 10/25/1984 Alcohol Intake: former Alcohol Intake Frequency:: holidays/special occasions only Substance Use Type: denies use *Occupational Status:: unemployed, disabled Housing: house Household Members: none *Travel in the last 8 weeks: None Family Hx:: Unable to obtain Review of Systems - Constitutional Reports anorexia - *Cardiovascular Reports chest pain, Reports chest pain at rest (RIGHT CHEST and Shoulder Blade) - *Respiratory Reports shortness of breath - *Neurologic Denies localized weakness, Denies seizure-like activity Meds Home Medications Medication Instructions Recorded Confirmed Type furosemide 40 mg tablet 40 mg PO DAILY #30 tab 03/20/20 05/01/20 Rx potassium chloride 20 mEq 20 meq PO BID #60 tab 03/22/20 05/01/20 Rx tablet,extended release(part/cryst) Sennosides/Docusate Sodium 1 each PO DAILY 04/05/20 05/01/20 History [Docusate Sodium-Sennosides Tab] Ferrous Sulfate [Iron 325mg Tab] 325 mg PO TID 04/13/20 05/01/20 History bisoprolol fumarate 10 mg tablet 10 mg PO DAILY #90 tab 04/22/20 05/01/20 Rx Oxycodone HCl/Acetaminophen 1 tab PO Q4H PRN 3 Days #18 tab 04/29/20 05/01/20 Rx [Percocet 10-325 mg Tablet] Amlodipine Besylate [Amlodipine 10 mg PO DAILY 05/01/20 05/01/20 History 10mg Tab] Losartan Potassium [Cozaar 100mg 100 mg PO DAILY 05/01/20 05/01/20 History Tablets] Prochlorperazine Maleate 10 mg PO TID 05/01/20 05/01/20 History [Compazine 10mg tablet] Tizanidine HCl [Zanaflex 4mg 4 mg PO TID 05/01/20 05/01/20 History tablet] diazePAM [Valium 10mg tablet] 10 mg PO TID 05/01/20 05/01/20 History hydrOXYzine pamoate [Vistaril 25mg 25 mg PO Q8H PRN 05/01/20 05/01/20 History capsule] Allergies Allergy/AdvReac Type Severity Reaction Status Date / Time No Known Allergies Allergy Verified 04/12/20 12:45 Exam Vital signs and Labs for Last 24 Hours: Temp Pulse Resp BP Pulse Ox 97.8 F 92 H 20 91/58 L 94 L 05/01/20 16:05 05/01/20 16:05 05/01/20 16:05 05/01/20 16:05 05/01/20 16:00 Laboratory Results - last 24 hr 05/01/20 10:23: WBC 24.3 H* D, RBC 4.00 L, Hgb 9.8 L, Hct 31.4 L, MCV 78.5 L, MCH 24.5 L, MCHC 31.2 L, RDW 24.2 H, Plt Count 1052 H*, MPV 7.5, Neut % (Auto) 89.4 H, Lymph % (Auto) 6.7 L, [place] % (Auto) 3.5, Eos % (Auto) 0.3, Baso % (Auto) 0.1, Neut # (Auto) 21.8 H, Lymph # (Auto) 1.6, [place] # (Auto) 0.9, Eos # (Auto) 0.1, Baso # (Auto) 0.0, Total Counted 100, Neutrophils % (Manual) 88 H, Lymphocytes % (Manual) 8 L, Monocytes % (Manual) 2, Basophils % (Manual)
[2020-05-01 17:45] LABS: Appearance,Body Fld. Cloudy; Volume,Body Fld. 1000 mL
[2020-05-01 17:46] LABS: RBC,Body Fluid 34 cells/uL (< 10 X 10^3); TNC,Body Fluid < 20 cells/uL (< 1000)
[2020-05-01 17:49] LABS: Source, Body Fld. Pleural Fluid
--- NOTE | 2020-05-01 19:02 | PC.NURSE ---
SINCE ARRIVING TO THE FLOOR PT HAS BEEN SOMEWHAT ANXIOUS. ACCORDING TO PT HE STATES HE GETS VERY NERVOUS AROUND PEOPLE VERY EASILY. PT HAS TO AMBULATE TO THE BATHROOM TO VOID B/C HE WAS UNABLE TO USE THE URINAL. PT GETS VERY SOA WHEN AMBULATING. AUDIBLE WHEEZES. HYPOACTIVE BOWEL SOUNDS. PT HAS SWELLING AND BRUISING NOTED TO THE THORACENTESIS SITE. LAB CALLED AND STATED THE FLUID FROM THE THORACENTISIS WILL HAVE TO BE SENT OUT FOR TESTING ( PCP NOTIFIED) O2 SATURATION 94-98% ON 2 L NC. VSS. VERY [place]. VSS. WILL CONTINUE TO MONITOR.
--- NOTE | 2020-05-01 19:39 | PC.NURSE ---
Pt's room air sat at rest = 85%.
--- NOTE | 2020-05-01 21:10 | ECG_ITS ---
APPROVED REPORT Exam: Resting ECG HR:163 bpm ECG Measurements Heart Rate 163 AXES W[place] 112 P QRSd 72 QRS 16 QT 266 T 210 QTc 438 <Conclusion> Atrial flutter ST & T wave abnormality, consider inferolateral ischemia Abnormal ECG Electronically signed by : Raz Elias, 05/03/2020 16:33:47
--- NOTE | 2020-05-01 22:30 | PC.NURSE ---
Primary Rn made aware of high heart rate and respiration rate.
--- NOTE | 2020-05-01 23:58 | PC.NURSE ---
2301 received patient from medical bed. patient in distress respiratory rate 30s to 40s, with sats 92 to 95% on 3 l nc. sats will periodically drop into the low to mid 80s. with coaching breaths patient will return back up to the 90s. heart rate 160-180s regular rhythm.
[2020-05-02] VITALS (48 sets, daily range): BP systolic 91–164; BP diastolic 38–87; PULSE 75–170; RESP 22–45; TEMP 36.4–36.9; O2SAT 89–98; BMI 22.3
--- NOTE | 2020-05-02 00:03 | PC.NURSE ---
2330 10 mg cardizem bolus given and cardizem drip started at 5mg/hr. will continue to monitor.
--- NOTE | 2020-05-02 00:27 | PC.NURSE ---
heart rate remains 160s and regular. cardizem drip increased to 10 mg/hr
--- NOTE | 2020-05-02 01:04 | PC.NURSE ---
cardizem drip remains 160s and regular, cardizem drip increased to 15 mg/hr. will continue to monitor.
--- NOTE | 2020-05-02 01:21 | XR_ITS ---
PROCEDURE: XR CHEST PORTABLE CLINICAL HISTORY: tachypnea COMPARISON: XR CHEST PORTABLE from 04/26/2020 CT ANGIO CHEST from 04/29/2020 XR CHEST AP from 05/01/2020 XR CHEST PORTABLE from 05/01/2020 FINDINGS: There has been reaccumulation of the large right pleural effusion with mild mediastinal shift toward the left. There is near total whiteout of the right lung with some only a small amount of aerated lung noted superiorly. The left lung remains clear. IMPRESSION: Re-accumulation of large right pleural effusion with mild mediastinal shift toward the left. Dictated by: Flynn Richard MD 05/02/2020 07:42 Electronically signed by Flynn Richard MD in [place] 05/02/2020 07:42
[2020-05-02 01:31] LABS: POC Glucose,Bedside 98 (70-110)
--- NOTE | 2020-05-02 01:33 | PC.NURSE ---
0115 dr. peterson notified of heart rate ramining 160s despite cardizem drip as well as respiratory rate in the remaining in the 40s. new order received. pcxr performed. will continue to monitor.
--- NOTE | 2020-05-02 01:39 | PC.NURSE ---
Approximately 2044 [facility] reported HR 163. This RN assessed and confirmed apical HR of 159. Pt also noted to have RR of 40. Pt became somewhat lethargic from baseline (normal flat effect present prior though), c/o progressing SOA. HR and RR remain elevated. Lung sounds in right side diminished w/ expiratory wheezing as well as audible wheezes present. 2106- Rapid response called. POLO Batista and POLO Hood present. EKG obtained. Finger stick 98. O2 increased to 4LNC. 2112- MD Dayan read EKG (A Flutter), sent EKG to MD Concepcion. No new orders 2126- MD Dayan called this RN and ordered digoxin 0.125mg IV push once and lovenox 1mg/kg SQ once 2135- Consulted carton making machine operator pharmacist Blu Gutierrez on lovenox dose. 60mg confirmed 2153- Digoxin given. Tele strip monitored before,during,and after push. 2313- MD Dayan informed of pt's HR of 170, orders for 10mg cardizem IV bolus and start cardizem drip per protocol. 0- Pt moved to UT room 216, POLO Batista taking over care of pt at this point.
--- NOTE | 2020-05-02 02:30 | ECG_ITS ---
APPROVED REPORT Exam: Resting ECG HR:162 bpm ECG Measurements Heart Rate 162 AXES [place] P -83 QRSd 80 QRS -9 QT 256 T 177 QTc 420 <Conclusion> Atrial flutter with 2:1 AV conduction Left ventricular hypertrophy with repolarization abnormality Abnormal ECG Electronically signed by : Raz Elias, 05/03/2020 16:32:41
--- NOTE | 2020-05-02 02:59 | PC.NURSE ---
MD Dayan consulted MD Concepcion at 0238. Orders from Concepcion to give 0.5mg digoxin IV once now
--- NOTE | 2020-05-02 03:07 | PC.NURSE ---
Pt's O2 sat = 90% on 36% ,4 lpm O2 via NC. RT placed pt on 35% jasen mask. O2 sat increased to 93% .
--- NOTE | 2020-05-02 03:14 | PC.NURSE ---
0145 dr. peterson at bedside, assessment completed, new order received. ekg done.
--- NOTE | 2020-05-02 03:15 | PC.NURSE ---
digoxin 0.5 mg given ivp. heart rate remains 150s-160s regular rhythm. will continue to monitor.
--- NOTE | 2020-05-02 03:56 | PC.NURSE ---
0130 cardizem drip increased to 20 mg/hr. heart rate remains 160s. will continue to monitor.
--- NOTE | 2020-05-02 04:41 | PC.NURSE ---
campus monitor patient converted to st at 120. patient resting with eyes closed. will continue to monitor.
--- NOTE | 2020-05-02 04:48 | PC.NURSE ---
0430 dr. peterson notified of conversion to st. no new order at this time. cardizem decreased to 10mg/hr. will continue to monitor.
[2020-05-02 06:29] LABS: Chloride 102 mmol/L (98-107); Potassium 5.2 mmoL/L (3.5-5.1); Sodium 131 mmol/L (136-145)
[2020-05-02 06:31] LABS: Blood Urea Nitrogen 40 mg/dl (9-20); Creatinine Clearance Estimated 53 mL/min (50-200); Estimated Glomerular Filt Rate 52 ml/min (>60); GFR (African American) 63 ML/MIN (>60)
[2020-05-02 06:32] LABS: Anion Gap 12.2 mEq/L (5-15); Calcium 8.5 mg/dl (8.4-10.2); Carbon Dioxide 22 mmol/L (22.0-30.0); Glucose 117 mg/dl (74-100)
[2020-05-02 06:54] LABS: Basophils % 0.1 % (0.1-2.0); Eosinophils % 0.1 % (0.1-12.0); Lymphocytes # 1.5 K/mm3 (0.7-4.5); Monocytes # 0.9 K/mm3 (0.1-1.0); Monocytes % 4.7 % (1.7-9.3)
[2020-05-02 07:01] LABS: Hematocrit 27.5 % (42.0-52.0); Lymphocytes % 7.7 % (10-50); Mean Corpuscular HGB Conc 32.4 g/dL (31.8-35.4); Mean Corpuscular Hemoglobin 24.4 pg (27.0-31.2); Mean Corpuscular Volume 75.2 fl (80-94); Mean Platelet Volume 7.7 fl (7.4-10.4); Neutrophils # 16.6 K/mm3 (1.8-7.8); Neutrophils % 87.4 % (37.0-80.0); Platelet Count 897 K/mm3 (142-424); Red Blood Count 3.65 M/mm3 (4.60-6.20); Red Cell Distribution Width 23.2 % (11.5-17.5)
[2020-05-02 07:18] LABS: Hemoglobin 8.9 g/dL (14.1-18.0)
[2020-05-02 07:20] LABS: MANUAL DIFFERENTIAL MANUAL DIFFERENTIAL (MANUAL DIFF)
--- NOTE | 2020-05-02 07:31 | HMH.ACPN2 ---
Internal Medicine - PN: Subj *Date: 05/02/20 *Time: 07:31 Interval history: Patient had an eventful night. He became tachycardic with EKG showing atrial flutter. Patient was placed on a Cardizem drip and also given intravenous digoxin. Currently he is resting with sinus tachycardia. He reports overall that his breathing is better. Exam Vital signs and Labs for Last 24 Hours: Temp Pulse Resp BP Pulse Ox 98.2 F 108 H 23 112/73 96 05/02/20 04:00 05/02/20 06:30 05/02/20 06:30 05/02/20 06:30 05/02/20 06:30 Laboratory Results - last 24 hr 05/01/20 10:23: WBC 24.3 H* D, RBC 4.00 L, Hgb 9.8 L, Hct 31.4 L, MCV 78.5 L, MCH 24.5 L, MCHC 31.2 L, RDW 24.2 H, Plt Count 1052 H*, MPV 7.5, Neut % (Auto) 89.4 H, Lymph % (Auto) 6.7 L, [place] % (Auto) 3.5, Eos % (Auto) 0.3, Baso % (Auto) 0.1, Neut # (Auto) 21.8 H, Lymph # (Auto) 1.6, [place] # (Auto) 0.9, Eos # (Auto) 0.1, Baso # (Auto) 0.0, Total Counted 100, Neutrophils % (Manual) 88 H, Lymphocytes % (Manual) 8 L, Monocytes % (Manual) 2, Basophils % (Manual) 2.0 H, Platelet Estimate Normal, RBC Morphology Normal, Hypochromasia 1+, Anisocytosis 1+, Microcytosis 1+ 05/01/20 10:23: Sodium 128 L, Potassium 5.2 H, Chloride 95 L, Carbon Dioxide 22, Anion Gap 11.0, BUN 50 H D, Creatinine 2.20 H D, Estimated Creat Clear 33, Estimated GFR 31 L, Est GFR ( Amer) 38 L D, Glucose 160 H, Calcium 9.3, Total Bilirubin 0.4, Direct Bilirubin 0.2, Conjugated Bilirubin 0.0, Indirect Bilirubin 0.2, Unconjugated Bilirubin 0.2, AST 32 D, ALT 22 D, Alkaline Phosphatase 209 H, Troponin I < 0.01, Total Protein 7.6, Albumin 2.8 L 05/01/20 11:00: Fluid Source Pleural fluid, Fluid Volume 1000, Fluid Appearance Cloudy, Fluid RBC (Auto) 34, Fld Tot Nucleated Cell < 20, Fld Polynuclear WBCs % [employer] 05/01/20 12:20: Lactate 1.3 05/01/20 13:10: Chlamy pneumoniae PCR Not detected, Adenovirus (PCR) Not detected, B. pertussis DNA (PCR) Not detected, Coronavirus OC43 (PCR) Not detected, Coronavirus HKU1 (PCR) Not detected, Coronavirus 229E (PCR) Not detected, COVID-19 PCR Not detected, Coronavirus NL63 (PCR) Not detected, Human Metapneumovir PCR Not detected, Influenza A (H1) PCR Not detected, Influ A (H1N1/09) PCR Not detected, Influenza A (H3) PCR Not detected, Influenza Type A (PCR) Not detected, Influenza Type B (PCR) Not detected, M. pneumoniae (PCR) Not detected, Parainfluenza 1 (PCR) Not detected, Parainfluenza 2 (PCR) Not detected, Parainfluenza 3 (PCR) Not detected, Parainfluenza 4 (PCR) Not detected, RSV (PCR) Not detected, Entero/Rhino (PCR) Not detected 05/01/20 14:25: Troponin I < 0.01 05/01/20 21:11: POC Glucose 98 05/02/20 05:38: WBC 19.0 H, RBC 3.65 L, Hgb 8.9 L, Hct 27.5 L, MCV 75.2 L, MCH 24.4 L, MCHC 32.4, RDW 23.2 H, Plt Count 897 H, MPV 7.7, Neut % (Auto) 87.4 H, Lymph % (Auto) 7.7 L, [place] % (Auto) 4.7, Eos % (Auto) 0.1, Baso % (Auto) 0.1, Neut # (Auto) 16.6 H, Lymph # (Auto) 1.5, [place] # (Auto) 0.9, Eos # (Auto) 0.0, Baso # (Auto) 0.0 05/02/20 05:38: Sodium 131 L, Potassium 5.2 H, Chloride 102, Carbon Dioxide 22, Anion Gap 12.2, BUN 40 H, Creatinine 1.40 H D, Estimated Creat Clear 53, Estimated GFR 52 L, Est GFR ( Amer) 63 D, Glucose 117 H D, Calcium 8.5, Magnesium 2.0 I & O for Last 24 hours: Intake & Output 04/29/20 04/30/20 05/01/20 05/02/20 11:59 11:59 11:59 11:59 Intake Total 1248 / 1248 Output Total 900 / 900 Balance 348 / 348 Weight 140 lb 140 lb 10.354 oz Microbiology Reports for the Last 24 Hours: Microbiology 05/01/20 11:00 Thoracic Fluid Gram Stain - Final Narrative: Patient was sleeping soundly and resting comfortably with no signs of any respiratory distress. Upon awakening patient's respirations increased and an audible wheeze could be heard. Lung exam reveals distant breath sounds in the right upper lobe of the lung. Both anteriorly and posteriorly in the lower right lung patient has absent breath sounds consistent with the pleural effusion and elevated rig
[2020-05-02 08:30] LABS: Eosinophils % 1 % (0-3); Lymphocytes % 8 % (10-50); Monocytes % 2 % (2-9); Neutrophils % 89 % (42-76); Total Cells Counted 100
[2020-05-02 08:31] LABS: Platelet Estimate Normal; RBC Morphology Normal
[2020-05-02 09:26] LABS: Microscopic, Urine URINE MICROSCOPIC (MICROSCOPIC)
[2020-05-02 09:27] LABS: Appearance,Urine CLEAR (Clear); Bilirubin,Urine Negative (Negative); Blood, Urine Negative (Negative); Color,Urine YELLOW (Yellow); Glucose,Urine (UA) Negative (Negative); Ketones,Urine Negative (Negative); Leukocyte Esterase,Urine Negative (Negative); Nitrate,Urine Negative (Negative); Protein,Urine TRACE (Negative); Specific Gravity, Urine 1.025 (1.005-1.030); Urobilinogen,Urine 0.2 EU/dl (0.2)
--- NOTE | 2020-05-02 09:30 | HMH.CNCARD ---
History of Present Illness Consult date: 05/02/20 Requesting physician: Cristopher Redmond Chief complaint: A. flutter with RVR Additional Medical History:: 1. Hypertension A. Echo,02/2020, 1. The left atrium, normal left ventricular size, mild concentric left ventricular hypertrophy, visually estimated ejection fraction 55% with no regional wall motion abnormality, grade 1 diastolic dysfunction seen without tissue Doppler evidence of raise left atrial pressure. 2. Mild aortic, mild mitral and tricuspid regurgitation. 3. No significant pericardial effusion noted B. History of diastolic congestive heart failure, 09/2018 2. Hearing deficit with use of hearing aids 3. Occasional alcohol use 4. Family history of coronary artery disease in his father in his late 50s 5. Abnormal EKG A. GXT myoview, 10/2018, 1. The EKG portion of the exercise Myoview is positive for ischemia, patient has good exercise capacity achieved 12.8mets of workload on treadmill, the blood pressure response to exercise was adequate, there was no exercise-induced chest discomfort. Test was stopped due to shortness of breath. 2. No scintigraphic evidence of reversible ischemia seen at this level of exercise, computer derived ejection fraction 46% with no regional wall motion abnormality. Right ventricle is normal size and contractility 6. Anemia, thrombocytosis and Liver mass discovered during work-up for right-sided chest pain, 03/2020 A. CTA of the chest 03/2020, results: No evidence of pulmonary emboli, large somewhat bilobed liver mass, the anterior half of the bilobed mass measuring 8.8 x 9.7 cm on the axial image the posterior portion of the bilobed mass measures 10.5 cm by 5.6 cm on the axial image by 10.2 cm superior inferior dimension B. CT of abdomen, 03/2020, Large complex cystic mass of the right lobe of the liver with a mildly thickened capsule with associated small right pleural effusion and atelectatic changes of the right lower lobe. The differential diagnosis would include hepatic abscess including amoebic abscess. Hepatocellular carcinoma and cystic metastasis is also included in the differential diagnosis. C. EGD, 03/2020, 1. Very mild reflux esophagitis (grade A) 2. Mild linear reactive gastropathy D. Colonoscopy, 03/2020, Prostate somewhat firm/smooth and enlarged Bowel preparation fair to moderate (improved versus prior efforts) Tiny hemorrhoidal cushions Sigmoid diverticulosis Severe spasticity and lack of relaxation making visualization exceptionally difficult Complex cecal polyp (snare) Near circumferential complex right colon mass with projection toward hepatic flexure. The mass was not obstructing; however, it was somewhat difficult to navigate secondary to concomitant narrowing and spasticity (stated above). Polyp with adjacent shallow ulceration between 10 and 15 cm 7. Right-sided pleural effusion, 04/2020 A. Ultrasound-guided thoracentesis, 05/01/2020, thousand cc removed without significant change in pleural effusion on chest x-ray. 8. Atrial flutter with rapid ventricular response, 05/02/2020, responded to IV digoxin and IV Cardizem 9. Remote tobacco use, discontinued 37 years ago History of present illness: 59 year old male underwent US guided thoracentesis as outpatient this morning for a growing right pleural effusion that is thought to be malignant. Approximately 30 minutes after the procedure successfully removed 1000mL the patient developed tachycardia and tachypnea and was transferred to the ER. ER evaluation was significant for elevated WBC of 24,000. This was a significant increase compared to 48 hours prior. Patient's tachypnea responded to IV morphine and lorazepam. Patient denied symptoms of infection such as fever or chills. Patient denies cough. The above per Dr. Redmond Overnight patient developed atrial flutter with a rapid ventricular response of 163 bpm. This was asael
[2020-05-02 09:42] LABS: Bacteria,Urine 1+ /lpf
[2020-05-02 12:02] LABS: Albumin, Body Fluid 1.8 g/dL (Not Estab.); Glucose, Body Fluid <2 mg/dL (.); LD, Body Fluid 1172 IU/L (.); Protein, Body Fluid 5.8 g/dL (.)
--- NOTE | 2020-05-02 15:21 | PC.NURSE ---
1345- rate on diltiazem decreased to 5mg/hr per md order at this time.
--- NOTE | 2020-05-02 16:51 | PC.NURSE ---
Patient has rested intermittently this shift, remains on 4LNC, RR has been 24-30 this shift, lung sounds remain absent on right side, CTA on left, jacobo catheter placed this shift, draining clear yellow urine, abd soft and nontender, active bowel sounds in all quads, no BM this shift, cardizem gtt is infusing at 5mg/hr per md order, patient remains in SR, vss, will continue to monitor for changes.
--- NOTE | 2020-05-02 17:33 | HMH.ACPN2 ---
Internal Medicine - PN: Subj *Date: 05/02/20 *Time: 17:33 Interval history: Discussion was had with both patient and his family this evening consisting of his sister, his [id number], his niece. Discussion was had about how aggressive the patient wished to be in pursuit of further treatments. It was explained to the patient that currently he has a large pleural effusion that is rapidly reaccumulated and with ultrasound showing some septations I believe patient would likely need a VATS procedure. Patient has experienced a rapid physical decline over the last month and his work-up for colon cancer with a large liver lesion is still ongoing. I am not sure patient would be able to physically tolerate additional procedures as with the thoracentesis which went well from a technical standpoint resulted in the patient having significant anxiety resulting in tachypnea and hypoxia. Patient was given the option of pursuing continued treatments to include transfer to the [facility] for further interventions regarding his pleural effusion and potentially his colon cancer. Alternatively he was presented with the option of treatments designed to keep him comfortable. Discussion was had with the patient. His sister had also discussed the same issues with the patient. Patient was given a chance to ask questions. Patient ultimately decided that he preferred to be kept comfortable. Patient will be taken out of the stepdown unit this evening. Dilaudid will be ordered hourly as needed. Ativan will be ordered every 30 minutes as needed as I anticipate the patient will have significant anxiety. Hospice will be consulted tomorrow and patient and his family wish to return home. Chavez catheter will be maintained now and at discharge. Exam Vital signs and Labs for Last 24 Hours: Temp Pulse Resp BP Pulse Ox 98.4 F 86 26 H 118/82 96 05/02/20 08:00 05/02/20 16:00 05/02/20 16:00 05/02/20 16:00 05/02/20 16:00 Laboratory Results - last 24 hr 05/01/20 11:00: Fluid Source Pleural fluid, Fluid Volume 1000, Fluid Appearance Cloudy, Fluid RBC (Auto) 34, Fld Tot Nucleated Cell < 20, Fld Polynuclear WBCs % , Fld Mononuclear WBCs % 05/01/20 11:00: Fluid Glucose <2, Fluid Total Protein 5.8, Fluid Albumin 1.8, Fluid LDH 1172 05/01/20 21:11: POC Glucose 98 05/02/20 05:38: WBC 19.0 H, RBC 3.65 L, Hgb 8.9 L, Hct 27.5 L, MCV 75.2 L, MCH 24.4 L, MCHC 32.4, RDW 23.2 H, Plt Count 897 H, MPV 7.7, Neut % (Auto) 87.4 H, Lymph % (Auto) 7.7 L, [place] % (Auto) 4.7, Eos % (Auto) 0.1, Baso % (Auto) 0.1, Neut # (Auto) 16.6 H, Lymph # (Auto) 1.5, [place] # (Auto) 0.9, Eos # (Auto) 0.0, Baso # (Auto) 0.0, Total Counted 100, Neutrophils % (Manual) 89 H, Lymphocytes % (Manual) 8 L, Monocytes % (Manual) 2, Eosinophils % (Manual) 1, Platelet Estimate Normal, RBC Morphology Normal 05/02/20 05:38: Sodium 131 L, Potassium 5.2 H, Chloride 102, Carbon Dioxide 22, Anion Gap 12.2, BUN 40 H, Creatinine 1.40 H D, Estimated Creat Clear 53, Estimated GFR 52 L, Est GFR ( Amer) 63 D, Glucose 117 H D, Calcium 8.5, Magnesium 2.0 05/02/20 09:20: Urine Color Yellow, Urine Appearance Clear, Urine pH 6.0, Ur Specific [place] 1.025, Urine Protein Trace, Urine Glucose (UA) Negative, Urine Ketones Negative, Urine Blood Negative, Urine Nitrate Negative, Urine Bilirubin Negative, Urine Urobilinogen 0.2, Ur Leukocyte Esterase Negative, Urine RBC 3-5, Urine WBC 3-5, Urine Bacteria 1+, Fine Granular Casts 5- 0 I & O for Last 24 hours: Intake & Output 04/30/20 05/01/20 05/02/20 05/03/20 11:59 11:59 11:59 11:59 Intake Total 1248 / 1248 792 / 792 Output Total 900 / 900 Balance 348 / 348 792 / 792 Weight 140 lb 142 lb 5 oz Microbiology Reports for the Last 24 Hours: Microbiology 05/01/20 11:00 Thoracic Fluid Gram Stain - Final 05/01/20 11:00 Thoracic Fluid Body Fluid Culture - Preliminary Assessment and Plan (1) Pleural effusion, right Current visit: Yes Status
--- NOTE | 2020-05-03 03:56 | PC.NURSE ---
pt is oriented to self and can state birthday. Pt rt lung is diminished left lung is clear throughout. Pt is on 6L@ NC. Pt C/o of rt side pain was medicated per DEC, on reassessment pt resting quietly in bed. Pt received one dose of PRN ativan @ 230 for anxiety, on reassessment pt sleeping. Bed alarm activated, sister @ bedside. possible d/c this am with hospice. Pt and pt's sister updated on POC. F/C patent draining yellow urine
[2020-05-03 04:00] VITALS: BP 107/57; PULSE 93; RESP 22; TEMP 37.1; O2SAT 100
[2020-05-03 05:00] VITALS: BMI 22.0
--- NOTE | 2020-05-03 07:20 | HMH.ACPN2 ---
Internal Medicine - PN: Subj *Date: 05/03/20 *Time: 07:20 Interval history: Patient symptoms have been controlled with Dilaudid for pain and dyspnea and Ativan for anxiety and dyspnea. He is sleeping this morning. His sister is at bedside. He became anxious around 2:30 AM and try to get out of bed but this was successfully treated with Ativan. Hospice has been consulted. Exam Vital signs and Labs for Last 24 Hours: Temp Pulse Resp BP Pulse Ox 98.7 F 93 H 22 107/57 L 100 05/03/20 04:00 05/03/20 04:00 05/03/20 04:00 05/03/20 04:00 05/03/20 04:00 Laboratory Results - last 24 hr 05/01/20 11:00: Fld Polynuclear WBCs % , Fld Mononuclear WBCs % 05/01/20 11:00: Fluid Glucose <2, Fluid Total Protein 5.8, Fluid Albumin 1.8, Fluid LDH 1172 05/02/20 05:38: Total Counted 100, Neutrophils % (Manual) 89 H, Lymphocytes % (Manual) 8 L, Monocytes % (Manual) 2, Eosinophils % (Manual) 1, Platelet Estimate Normal, RBC Morphology Normal 05/02/20 09:20: Urine Color Yellow, Urine Appearance Clear, Urine pH 6.0, Ur Specific [place] 1.025, Urine Protein Trace, Urine Glucose (UA) Negative, Urine Ketones Negative, Urine Blood Negative, Urine Nitrate Negative, Urine Bilirubin Negative, Urine Urobilinogen 0.2, Ur Leukocyte Esterase Negative, Urine RBC 3-5, Urine WBC 3-5, Urine Bacteria 1+, Fine Granular Casts 5- 0 I & O for Last 24 hours: Intake & Output 04/30/20 05/01/20 05/02/20 05/03/20 11:59 11:59 11:59 11:59 Intake Total 1248 / 1248 1112 / 1112 Output Total 900 / 900 1200 / 1200 Balance 348 / 348 -88 / -88 Weight 140 lb 142 lb 5 oz 140 lb 6.4 oz Microbiology Reports for the Last 24 Hours: Microbiology 05/01/20 11:00 Thoracic Fluid Gram Stain - Final 05/01/20 11:00 Thoracic Fluid Body Fluid Culture - Preliminary Narrative: Patient is in no distress. Breathing is slightly labored. Lungs have clear breath sounds on the left. Breath sounds are only audible on the right at the apex. He also has an expiratory wheeze coming from the right apex. Heart has a regular rate and rhythm. Abdomen is soft Assessment and Plan (1) Pleural effusion, right Current visit: Yes Status: Acute Category: Medical Code(s): J90 - Pleural effusion, not elsewhere classified (2) Atrial flutter Current visit: Yes Status: Acute Category: Medical Code(s): I48.92 - Unspecified atrial flutter (3) SIRS (systemic inflammatory response syndrome) Current visit: Yes Status: Acute Category: Medical Code(s): R65.10 - Systemic inflammatory response syndrome (SIRS) of non-infectious origin without acute organ dysfunction (4) Adenocarcinoma of colon Current visit: Yes Status: Acute Category: Medical Code(s): C18.9 - Malignant neoplasm of colon, unspecified (5) Liver mass Current visit: No Status: Acute Category: Medical Code(s): R16.0 - Hepatomegaly, not elsewhere classified (6) ROSAMARIA (acute kidney injury) Current visit: Yes Status: Resolved Category: Medical Code(s): N17.9 - Acute kidney failure, unspecified - Assessment and plan all Dx Assessment and Plan for all problems:: Patient will have a hospice evaluation in-house and then will be discharged home
--- NOTE | 2020-05-03 07:21 | HMH.DCSUM ---
General - General Admission date:: 05/01/20 <Daniel Hansen - 05/07/20 19:00> 05/01/20 <Antonio Redmondhen - 05/03/20 07:28> Discharge date: 05/03/20 <Antonio Redmondhen - 05/03/20 07:28> HPI HPI: 59 year old male underwent US guided thoracentesis as outpatient this morning for a growing right pleural effusion that is thought to be malignant. Approximately 30 minutes after the procedure successfully removed 1000mL the patient developed tachycardia and tachypnea and was transferred to the ER. ER evaluation was significant for elevated WBC of 24,000. This was a significant increase compared to 48 hours prior. Patient's tachypnea responded to IV morphine and lorazepam. Patient denied symptoms of infection such as fever or chills. Patient denies cough. <Cristopher Redmond - 05/03/20 07:28> Hospital Course Hospital Course: Patient maintained on hospice level care with comfort measures. Required regular pain medication and Ativan for anxiety and agitation. Family at bedside through course of hospitalization. Remained comfortable, the afternoon of 05/07. <Daniel Hansen - 05/07/20 19:00> Patient was admitted and started on IV Rocephin and metronidazole. His white count responded. However overnight the first day of admission patient developed a flutter with increasing shortness of breath. A flutter was treated with a Cardizem drip and patient ultimately converted back to sinus rhythm. Repeat chest x-ray showed recurrence of the right pleural effusion. Cardiology was consulted for the patient's atrial flutter. He was transitioned from IV Cardizem to oral Cardizem which kept his rate under control. Patient will continue digoxin, beta-blockade, calcium channel blockers to control his heart rate. Patient has adenocarcinoma of the colon that is poorly differentiated with suspected large metastatic lesion in the liver. Liver lesion has not been confirmed as metastatic. Patient was scheduled for outpatient MRI however due to patient's deteriorating condition this will not occur. Discussion was had with both the patient and his family regarding his prognosis. It was explained to the patient that treatment options at this point would include transfer to tertiary care facility for chest tube and probable VATS procedure. He has yet to complete his cancer work-up and would likely need either chemotherapy or surgery for his cancer. Patient has declined significantly in the last month and I expressed my concerns over the patient's ability to tolerate further interventions as a technically sound thoracentesis ended in a patient being admitted to the hospital. Patient wishes to be a DO NOT RESUSCITATE and I anticipate that further interventions would lead to ICU stays. This was explained to the patient and his family. Patient was offered the option of remaining comfortable in returning home. Patient chose to return home. Hospice was consulted. Once arrangements were made through hospice patient was discharged home. <Cristopher Redmond - 05/03/20 07:28> Objective Vital signs: Temp Pulse Resp BP Pulse Ox 102.1 F H 128 H 12 127/69 73 L 05/06/20 20:00 05/06/20 20:00 05/07/20 06:35 05/06/20 20:00 05/06/20 20:00 <Daniel Hansen - 05/07/20 19:00> Temp Pulse Resp BP Pulse Ox 98.7 F 93 H 22 107/57 L 100 05/03/20 04:00 05/03/20 04:00 05/03/20 04:00 05/03/20 04:00 05/03/20 04:00 <Cristopher Redmond - 05/03/20 07:28> Results Labs on day of discharge: Labs from last 24 hours 05/02/20 05/02/20 05/01/20 09:20 05:38 11:00 Total Counted 100 Neutrophils % (Manual) 89 H Lymphocytes % (Manual) 8 L Monocytes % (Manual) 2 Eosinophils % (Manual) 1 Platelet Estimate Normal RBC Morphology Normal Urine Color Yellow Urine Appearance Clear Urine pH 6.0 Ur Specific [place] 1.025 Urine Protein Trace Urine Glucose (UA) Negative Urine Ketones Negative Urine Blood Negati
--- NOTE | 2020-05-03 07:35 | SW/DCPLANNER ---
Addendum entered by Muriel Akers 05/03/20 09:03: HOSPICE NURSE WILL BE AXEL MARINO, SHE WILL BE HERE SOMETIME THIS MORNING TO SPEAK WITH PATIENT AND FAMILY ON WHAT HE MAY NEED TO GET HIM HOME... Original Note: RECEIVED REFERRAL FOR A HOSPICE CONSULT FOR THIS PATIENT: I HAVE SENT THE REFERRAL TO [facility] THIS MORNING AND WAITING FOR THEM TO CALL AND LET ME KNOW WHEN THEY ARE COMING TO SEE PATIENT AND SPEAK WITH FAMILY..PATIENT AND FAMILY WISHES TO GO HOME.. WILL SPEAK WITH PATIENT WHEN HOSPICE GETS HERE TO SEE WHAT EQUIPMENT HE MAY NEED TO GET SET UP....
[2020-05-03 08:00] VITALS: BP 118/68; PULSE 94; RESP 15; TEMP 36.6; O2SAT 100
[2020-05-03 16:00] VITALS: BP 98/62; PULSE 66; RESP 16; TEMP 36.9; O2SAT 100
--- NOTE | 2020-05-03 16:53 | PC.NURSE ---
Pt was admitted to Hospice today and is now comfort measures. Pt receives Ativan and Dilaudid prn. Pt is still receiving O2 @ 6 LPM via NC with sats. >93%. 20 G peripheral IV in the LT and RT AC are both noted to be patent and SL. Family at bedside. F/C draining clear, yellow urine at bedside to gravity. VSS. Call light within reach. Will continue to monitor.
[2020-05-03 20:00] VITALS: BP 101/59; PULSE 100; RESP 20; TEMP 36.6; O2SAT 100
[2020-05-03 20:03] VITALS: O2SAT 98
[2020-05-04] VITALS: BP 115/52; PULSE 74; RESP 24; TEMP 36.8; O2SAT 100
--- NOTE | 2020-05-04 04:37 | PC.NURSE ---
Pt is now inpatient hospice with comfort measures. Pt has received ativan and dilaudid PRN this shift. Pt on 6L @ NC with sats 98-100 %. Left lung has coarse crackles, Rt lung diminished. Bed alarm activated per family request. Pt has bilateral 20G AC SL. F/C draining yellow urine. family present @ bedside
[2020-05-04 05:00] VITALS: BMI 21.9
[2020-05-04 06:00] VITALS: BMI 21.7
--- NOTE | 2020-05-04 06:21 | PC.NURSE ---
pt's niece refused for 0400 vitals to be completed
--- NOTE | 2020-05-04 07:55 | HMH.ACPN2 ---
Internal Medicine - PN: Subj *Date: 05/04/20 *Time: 07:55 Interval history: Patient was admitted to inpatient hospice yesterday. His niece is at bedside. This morning he remains comfortable although breathing is slightly labored due to his parapneumonic effusion which has grown strep intermedius. While patient has not had any meaningful form of communication with the niece he does awaken and start and make eye contact with me when I am in the room. He makes no attempt to speak. Exam Vital signs and Labs for Last 24 Hours: Temp Pulse Resp BP Pulse Ox 98.2 F 74 24 115/52 L 100 05/04/20 00:00 05/04/20 00:00 05/04/20 00:00 05/04/20 00:00 05/04/20 00:00 I & O for Last 24 hours: Intake & Output 05/01/20 05/02/20 05/03/20 05/04/20 11:59 11:59 11:59 11:59 Intake Total 1248 / 1248 1112 / 1112 0 / 0 Output Total 900 / 900 1200 / 1200 950 / 950 Balance 348 / 348 -88 / -88 -950 / -950 Weight 140 lb 142 lb 5 oz 140 lb 6.4 oz 138 lb Microbiology Reports for the Last 24 Hours: Microbiology 05/01/20 11:00 Thoracic Fluid Gram Stain - Final 05/01/20 11:00 Thoracic Fluid Body Fluid Culture - Final Streptococcus intermedius 05/01/20 12:20 Blood Blood Culture - Preliminary NO GROWTH AFTER 48 HOURS 05/01/20 12:20 Blood Blood Culture - Preliminary NO GROWTH AFTER 48 HOURS Narrative: Patient is resting with nasal cannula on. Accessory muscles are used for expiration. Patient has absent breath sounds in the right base both anteriorly and posteriorly with distant breath sounds at the apex. Left lung is clear. Heart rate is regular. Extremities have no edema. The hands are cool Assessment and Plan (1) Pleural effusion, right Current visit: Yes Status: Acute Category: Medical Code(s): J90 - Pleural effusion, not elsewhere classified (2) Atrial flutter Current visit: Yes Status: Acute Category: Medical Code(s): I48.92 - Unspecified atrial flutter (3) SIRS (systemic inflammatory response syndrome) Current visit: Yes Status: Acute Category: Medical Code(s): R65.10 - Systemic inflammatory response syndrome (SIRS) of non-infectious origin without acute organ dysfunction (4) Adenocarcinoma of colon Current visit: Yes Status: Acute Category: Medical Code(s): C18.9 - Malignant neoplasm of colon, unspecified (5) Liver mass Current visit: No Status: Acute Category: Medical Code(s): R16.0 - Hepatomegaly, not elsewhere classified (6) ROSAMARIA (acute kidney injury) Current visit: Yes Status: Resolved Category: Medical Code(s): N17.9 - Acute kidney failure, unspecified (7) Parapneumonic effusion Current visit: Yes Status: Acute Category: Medical Code(s): J18.9 - Pneumonia, unspecified organism; J91.8 - Pleural effusion in other conditions classified elsewhere - Assessment and plan all Dx Assessment and Plan for all problems:: Patient is under hospice care. Goal of care is to keep the patient comfortable. Patient will be reassessed by hospice staff on Wednesday
[2020-05-04 08:00] VITALS: PULSE 74; RESP 24; O2SAT 100
[2020-05-04 16:00] VITALS: BP 128/65; PULSE 101; RESP 20; TEMP 36.6; O2SAT 93
--- NOTE | 2020-05-04 18:00 | PC.NURSE ---
Pt is comfort measures. Family at bedside. Courtesy cart at bedside. Medicated with Dilaudid and Ativan per MAR at family request. Pt is receiving oral care and being turned/repositioned Q2H. Lungs CTA. No edema noted. Pt awoke for a short period this AM and stated that he no longer wanted to wear O2. Pt has been on RA since, with sats. >90%. 20 G peripheral IV in the RT AC is patent and SL. 20 G peripheral IV in the LT AC is patent and SL. F/C is draining clear, viviane urine at bedside to gravity. Skin is c/d/i. Олег order changed to Q4H per Dr. Redmond. Call light within family's reach. Will continue to monitor.
[2020-05-04 18:20] VITALS: O2SAT 88
--- NOTE | 2020-05-05 04:45 | PC.NURSE ---
Pt remains unresponsive. Continues to require regular doses of hydromorphone and lorazepam as evidenced by grimacing, withdrawal, and moaning. Niece remains at bedside and requests that pt not be turned due to increased pain.
[2020-05-05 05:00] VITALS: BMI 21.3
[2020-05-05 06:19] VITALS: BMI 21.9
[2020-05-05 08:00] VITALS: PULSE 110; RESP 18; O2SAT 79
--- NOTE | 2020-05-05 08:23 | HMH.ACPN2 ---
Internal Medicine - PN: Subj *Date: 05/05/20 *Time: 08:23 Interval history: Patient at present is unresponsive but when I entered the room patient is moaning in pain with back arched laying in bed. He does not make any response to vocal or tactile stimulus. Niece is at bedside Exam Vital signs and Labs for Last 24 Hours: Temp Pulse Resp BP Pulse Ox 97.9 F 101 H 20 128/65 88 L 05/04/20 16:00 05/04/20 16:00 05/04/20 16:00 05/04/20 16:00 05/04/20 18:20 I & O for Last 24 hours: Intake & Output 05/02/20 05/03/20 05/04/20 05/05/20 11:59 11:59 11:59 11:59 Intake Total 1248 / 1248 1112 / 1112 120 / 120 0 / 0 Output Total 900 / 900 1200 / 1200 950 / 950 350 / 350 Balance 348 / 348 -88 / -88 -830 / -830 -350 / -350 Weight 142 lb 5 oz 140 lb 6.4 oz 138 lb 140 lb 1.6 oz Microbiology Reports for the Last 24 Hours: Microbiology 05/01/20 11:00 Thoracic Fluid Gram Stain - Final 05/01/20 11:00 Thoracic Fluid Body Fluid Culture - Final Streptococcus intermedius Narrative: Patient is in mild distress from pain. Breath sounds are absent on the right and diminished on the left. Heart has regular rate and rhythm. Abdomen is soft. Patient does not awaken with vocal or tactile stimulus Assessment and Plan (1) Pleural effusion, right Current visit: Yes Status: Acute Category: Medical Code(s): J90 - Pleural effusion, not elsewhere classified (2) Atrial flutter Current visit: Yes Status: Acute Category: Medical Code(s): I48.92 - Unspecified atrial flutter (3) SIRS (systemic inflammatory response syndrome) Current visit: Yes Status: Acute Category: Medical Code(s): R65.10 - Systemic inflammatory response syndrome (SIRS) of non-infectious origin without acute organ dysfunction (4) Adenocarcinoma of colon Current visit: Yes Status: Acute Category: Medical Code(s): C18.9 - Malignant neoplasm of colon, unspecified (5) Liver mass Current visit: No Status: Acute Category: Medical Code(s): R16.0 - Hepatomegaly, not elsewhere classified (6) ROSAMARIA (acute kidney injury) Current visit: Yes Status: Resolved Category: Medical Code(s): N17.9 - Acute kidney failure, unspecified (7) Parapneumonic effusion Current visit: Yes Status: Acute Category: Medical Code(s): J18.9 - Pneumonia, unspecified organism; J91.8 - Pleural effusion in other conditions classified elsewhere - Assessment and plan all Dx Assessment and Plan for all problems:: 1. Adjust pain medicines for comfort
[2020-05-05 08:26] VITALS: BP 110/68; PULSE 110; RESP 18; TEMP 36.6; O2SAT 79
--- NOTE | 2020-05-05 18:04 | PC.NURSE ---
Pt is comfort measures. Family at bedside. Courtesy cart at bedside. Pt requires frequent doses of Ativan and Dilaudid to remain comfortable. Pt is receiving oral care and being turned/repositioned Q2H with occasional refusal from the family. Lung sounds reveal expiratory rhonchi. Skin is c/d/i. No edema noted. 20 G peripheral IV in the RT AC is patent and SL. 20 G peripheral IV in the LT AC is patent and SL. F/C is draining clear, viviane urine at bedside to gravity. Call light within family's reach. Will continue to monitor.
--- NOTE | 2020-05-06 00:30 | PC.NURSE ---
PT HAS RESTED COMFORTABLY THUS FAR IN SHIFT. FAMILY AT BEDSIDE. PRN MEDS GIVEN Q2HR AT FAMILY REQUEST. PT FAMILY DID REFUSE TO HAVE PT TURNED AT BEGINNING OF SHIFT, THEY WERE EDUCATED ON BED SORE. AT 2300 ROUND THEY WERE OFFERED AGAIN ABOUT TURNING PT AND THEY REQUESTED HIM TO BE TURNED TO LEFT SIDE. THEY REPORTED HIS RIGHT SIDE IS WHERE THEY PAIN IS. F/C DRAINING DARK YELLOW URINE. VSS. WILL CONT. TO MONITOR.
--- NOTE | 2020-05-06 02:13 | PC.NURSE ---
Addendum entered by Arpita Chun RN 05/06/20 02:21: This incident happened at 01:40 Original Note: Family reports pt. breathing is getting heavier and pt. sounds like he has more secretions. Nurse to pt. room, Pt. breathing heavy and fast, audible secretions noted, Dayshift nurse attempted to suction secretions with yankeur, unable to remove secretions. Medications given, see EMAR. Family has questions regarding medication frequency. Nurse educated family, family v/u. Family denies further needs, will continue to monitor.
--- NOTE | 2020-05-06 02:25 | PC.NURSE ---
Addendum entered by Arpita Chun RN 05/06/20 02:45: REPORT RECEIVED AT 01:25 Original Note: Report received from Stella Thompson RN.
[2020-05-06 05:00] VITALS: BMI 21.9
--- NOTE | 2020-05-06 07:25 | PC.NURSE ---
Report given to Kevin Reynolds RN and Stella Harris RN.
[2020-05-06 08:00] VITALS: PULSE 128
--- NOTE | 2020-05-06 08:30 | HMH.ACPN2 ---
Internal Medicine - PN: Subj *Date: 05/06/20 *Time: 08:30 Interval history: Patient remains obtunded and essentially comatose, reports that he is in some pain but seems to be ameliorated fairly well Exam Vital signs and Labs for Last 24 Hours: Temp Pulse Resp BP Pulse Ox 97.9 F 110 H 18 110/68 79 L 05/05/20 08:26 05/05/20 08:26 05/05/20 08:26 05/05/20 08:26 05/05/20 08:26 I & O for Last 24 hours: Intake & Output 05/03/20 05/04/20 05/05/20 05/06/20 11:59 11:59 11:59 11:59 Intake Total 1112 / 1112 120 / 120 0 / 0 0 / 0 Output Total 1200 / 1200 950 / 950 350 / 350 200 / 200 Balance -88 / -88 -830 / -830 -350 / -350 -200 / -200 Weight 140 lb 6.4 oz 138 lb 140 lb 1.6 oz 140 lb 1.59 oz Narrative: Patient is obtunded. Minimally responsive to tactile stimuli. Breathing easily. Abdomen soft, heart rate regular. ENT exam clear. Neurologic exam compromised, no visible rash Assessment and Plan (1) Pleural effusion, right Current visit: Yes Status: Acute Category: Medical Code(s): J90 - Pleural effusion, not elsewhere classified (2) Atrial flutter Current visit: Yes Status: Acute Category: Medical Code(s): I48.92 - Unspecified atrial flutter (3) SIRS (systemic inflammatory response syndrome) Current visit: Yes Status: Acute Category: Medical Code(s): R65.10 - Systemic inflammatory response syndrome (SIRS) of non-infectious origin without acute organ dysfunction (4) Adenocarcinoma of colon Current visit: Yes Status: Acute Category: Medical Code(s): C18.9 - Malignant neoplasm of colon, unspecified (5) Liver mass Current visit: No Status: Acute Category: Medical Code(s): R16.0 - Hepatomegaly, not elsewhere classified (6) ROSAMARIA (acute kidney injury) Current visit: Yes Status: Resolved Category: Medical Code(s): N17.9 - Acute kidney failure, unspecified (7) Parapneumonic effusion Current visit: Yes Status: Acute Category: Medical Code(s): J18.9 - Pneumonia, unspecified organism; J91.8 - Pleural effusion in other conditions classified elsewhere - Assessment and plan all Dx Assessment and Plan for all problems:: Metastatic cancer, terminal care, continue pain medicine and inpatient palliative care
--- NOTE | 2020-05-06 08:33 | PC.NURSE ---
patient family refusing vitals at this time. patient is comfort care
[2020-05-06 11:24] VITALS: RESP 20
--- NOTE | 2020-05-06 12:56 | SW/DCPLANNER ---
I have spoke with Alesha Post with Hospice this afternoon regarding this patient. Alesha has stated that they have no needs at this time and patients nurse (Felipa Vicente) will visit this patient/family at [facility] today.
--- NOTE | 2020-05-06 13:02 | PC.NURSE ---
advice nurse (Felipa Peter) @
[2020-05-06 13:34] VITALS: BMI 22.1
--- NOTE | 2020-05-06 18:52 | PC.NURSE ---
turns and oral care and vitals done at patient family request.
--- NOTE | 2020-05-06 19:04 | PC.NURSE ---
Pt comfortable this shift with prn Dilaudid, Ativan and Robinul. Has been unresponsive the entire shift. Family requests that vitals not be taken.
--- NOTE | 2020-05-06 19:22 | PC.NURSE ---
report given to caterina
[2020-05-06 20:00] VITALS: BP 127/69; PULSE 128; RESP 28; TEMP 38.9; O2SAT 73
[2020-05-06 22:00] VITALS: RESP 28
[2020-05-06 23:24] VITALS: RESP 20
[2020-05-07 01:53] VITALS: RESP 16
[2020-05-07 03:09] VITALS: RESP 14
[2020-05-07 04:10] VITALS: RESP 14
--- NOTE | 2020-05-07 04:53 | PC.NURSE ---
EPISODES OF AGONAL/RATTLING BREATH SOUNDS T/O SHIFT. CONTINUOUSLY ADMINISTERED ATIVAN, DILAUDID AND ROXANOL PER MAR PER FAMILY. SISTER AT BS. INCREASED TEMP AT BEGINNING OF SHIFT; FAMILY DOES NOT WANT PT. TO BE TURNED COMPLETELY , ONLY ALLOWED WEIGHT TO BE SHIFTED WITH PILLOWS TWICE. ORAL CARE GIVEN PER FAMILY.
[2020-05-07 05:29] VITALS: RESP 12
[2020-05-07 06:35] VITALS: RESP 12
--- NOTE | 2020-05-07 13:37 | HMH.ACPN2 ---
Internal Medicine - PN: Subj *Date: 05/07/20 *Time: 13:37 Interval history: No acute events overnight. Pain well managed on combination of fentanyl patch and as needed Dilaudid. Sleeping comfortably in no acute distress on exam this morning. Exam Vital signs and Labs for Last 24 Hours: Temp Pulse Resp BP Pulse Ox 102.1 F H 128 H 12 127/69 73 L 05/06/20 20:00 05/06/20 20:00 05/07/20 06:35 05/06/20 20:00 05/06/20 20:00 I & O for Last 24 hours: Intake & Output 05/04/20 05/05/20 05/06/20 05/07/20 23:59 23:59 23:59 23:59 Intake Total 120 / 120 0 / 0 0 / 0 Output Total 400 / 400 350 / 550 200 / 200 350 / 350 Balance -280 / -280 -350 / -550 -200 / -200 -350 / -350 Weight 62.596 kg 63.548 kg 64 kg Microbiology Reports for the Last 24 Hours: Microbiology 05/01/20 12:20 Blood Blood Culture - Final NO GROWTH AFTER 5 DAYS 05/01/20 12:20 Blood Blood Culture - Final NO GROWTH AFTER 5 DAYS Narrative: Obtunded, slow respirations with gurgling exhalation. Heart rate regular. Minimal response to physical stimuli. Assessment and Plan (1) Pleural effusion, right Current visit: Yes Status: Acute Category: Medical Code(s): J90 - Pleural effusion, not elsewhere classified (2) Atrial flutter Current visit: Yes Status: Acute Category: Medical Code(s): I48.92 - Unspecified atrial flutter (3) SIRS (systemic inflammatory response syndrome) Current visit: Yes Status: Acute Category: Medical Code(s): R65.10 - Systemic inflammatory response syndrome (SIRS) of non-infectious origin without acute organ dysfunction (4) Adenocarcinoma of colon Current visit: Yes Status: Acute Category: Medical Code(s): C18.9 - Malignant neoplasm of colon, unspecified (5) Liver mass Current visit: No Status: Acute Category: Medical Code(s): R16.0 - Hepatomegaly, not elsewhere classified (6) ROSAMARIA (acute kidney injury) Current visit: Yes Status: Resolved Category: Medical Code(s): N17.9 - Acute kidney failure, unspecified (7) Parapneumonic effusion Current visit: Yes Status: Acute Category: Medical Code(s): J18.9 - Pneumonia, unspecified organism; J91.8 - Pleural effusion in other conditions classified elsewhere - Assessment and plan all Dx Assessment and Plan for all problems:: 59-year-old gentleman with metastatic colon cancer, on hospice/comfort care at this time. Continue pain regimen and anxiety medication as needed. Family with him intermittently at bedside. No acute needs today. Actively dying.
== END 2020-05-07 20:25 | disposition expired | DRG 187 ==
LOC: ER 13:22 → 2ND 14:49
PROVIDERS: Admitting Provider Family Medicine; Emergency Provider Emergency Medicine; PCP Family Medicine; Visit Provider Family Medicine
DX: J90 Pleural effusion, not elsewhere classified (principal); I48.92 Unspecified atrial flutter; N17.9 Acute kidney failure, unspecified; R65.10 Systemic inflammatory response syndrome (SIRS) of non-infectious origin without acute organ dysfunction; C18.2 Malignant neoplasm of ascending colon; C78.7 Secondary malignant neoplasm of liver and intrahepatic bile duct; I11.0 Hypertensive heart disease with heart failure; I50.9 Heart failure, unspecified; I25.10 Atherosclerotic heart disease of native coronary artery without angina pectoris; Z87.891 Personal history of nicotine dependence
CPT/HCPCS: 32555; 36415; 71045; 71275; 80048; 80053; 80076; 81001; 82042; 82150; 82945; 82962; 83605; 83615; 83690; 83735; 84155; 84484; 85007; 85025; 87040; 87070; 87077; 87186; 87205; 87581; 87633; 87798; 89051; 93005; 93306; 94761; 96365; 96374; 96375; 96376; 99283; 99284; 99285; J2405; Q9967